=== PATIENT | female | born 1990 | race African-American/Black ===

== ENCOUNTER 2016-06-12 18:40 | Outpatient (CLI) | payer MEDICAID ==
[2016-06-12 19:34] LABS: APPEARANCE,URINE SLIGHTLY-CLOUDY; BILIRUBIN,URINE NEGATIVE (NEGATIVE); GLUCOSE, URINE NEGATIVE (NEGATIVE); KETONES,URINE NEGATIVE (NEGATIVE); LEUKOCYTE ESTERASE,URINE NEGATIVE (NEGATIVE); NITRITE,URINE NEGATIVE (NEGATIVE); PROTEIN,URINE >=500 mg/dL (NEGATIVE); URINE SPECIFIC GRAVITY 1.017; UROBILINOGEN,URINE NEGATIVE mg/dL (<2.0)
[2016-06-12 19:38] LABS: AMNISURE (ROM) NEGATIVE (NEGATIVE)
[2016-06-12] MEDS ORDERED: LABETALOL HCL 200 MG TABLET ONE (19:46)
[2016-06-12 19:47] LABS: URINE BARBITURATES SCREEN NEGATIVE; URINE METHADONE SCREEN NEGATIVE; URINE OPIATES LOW NEGATIVE; URINE PHENCYCLIDINE SCREEN NEGATIVE
--- NOTE | 2016-06-12 20:00 | L&D Flow Sheet ---
LD Flowsheet Datetime Report Generated by CPN: 06/12/2016 20:00 Datetime: 06/12/2016 19:58 Patient Care Comments: Wet prep collected (Mag Vitrano, RN) Datetime: 06/12/2016 19:52 Medications Medication Comments: Labetolol 200 mg PO (Mag Vitrano, RN) Datetime: 06/12/2016 19:50 Vital Signs NBP Sys/Negin/Mean (mmHg): 164 (QS system process) : 104 (QS system process) : 129 (QS system process) Pulse: 75 (QS system process) LaborFlag: Antepartum (QS system process) Datetime: 06/12/2016 19:48 Communication Communication Comments: Reviewed VS with Dr. Neilsen, new orders received for Labetolol 200 mg PO x1 now. (Mag Vitrano, RN) Datetime: 06/12/2016 19:44 Communication Communication Comments: Dr. Neilsen aware (Mag Vitrano, RN) Datetime: 06/12/2016 19:40 Communication Communication Comments: Dr. Nekatharineen notified of pt VS and pt due for evening dose of Labetolol, 50 mg PO. Orders to administer evening dose x1 now. (Mag Vitrano, RN) Datetime: 06/12/2016 19:37 Communication Communication Comments: Records requested from [facility] (Mag Vitrano, RN) Datetime: 06/12/2016 19:35 Vital Signs NBP Sys/Negin/Mean (mmHg): 180 (QS system process) : 116 (QS system process) : 142 (QS system process) Pulse: 81 (QS system process) LaborFlag: Antepartum (QS system process) Datetime: 06/12/2016 19:23 Vital Signs NBP Sys/Negin/Mean (mmHg): 161 (QS system process) : 97 (QS system process) : 122 (QS system process) Pulse: 81 (QS system process) LaborFlag: Antepartum (QS system process) Datetime: 06/12/2016 19:22 Patient Care Patient Position/Activity: Left Lateral (Mag Vitrano, RN) Patient Care Comments: Lights dimmed (Mag Vitrano, RN) Datetime: 06/12/2016 19:20 Vital Signs NBP Sys/Negin/Mean (mmHg): 180 (QS system process) : 119 (QS system process) : 142 (QS system process) Pulse: 82 (QS system process) LaborFlag: Antepartum (QS system process) Datetime: 06/12/2016 19:16 Vital Signs NBP Sys/Ngein/Mean (mmHg): 172 (QS system process) : 117 (QS system process) : 139 (QS system process) Pulse: 89 (QS system process) LaborFlag: Antepartum (QS system process)
[2016-06-12] MEDS ORDERED: LABETALOL HCL 200 MG TABLET PO ONE (20:13)
[2016-06-12] MEDS ORDERED: RINGERS SOLUTION,LACTATED 1,000 ML IV PRN (20:13)
[2016-06-12] MEDS ORDERED: LABETALOL HCL INJ 20 MG/4 ML DISP.SYRIN IV ONE ×2 (21:39→21:41)
--- NOTE | 2016-06-12 22:00 | L&D Flow Sheet ---
LD Flowsheet Datetime Report Generated by CPN: 06/12/2016 22:00 Datetime: 06/12/2016 21:50 NBP Sys/Negin/Mean (mmHg): 179 (QS system process) : 105 (QS system process) : 136 (QS system process) Pulse: 77 (QS system process) LaborFlag: Antepartum (QS system process) Datetime: 06/12/2016 21:48 Monitor Interventions for UA: [place] Adjusted (Mag Julienano, RN) Monitor Interventions for FHR: Ultrasound Adjusted (Mag Vitrano, RN) Patient Position/Activity: Right Tilt; Semi-Fowlers (Mag Vitrano, RN) Datetime: 06/12/2016 21:47 Medication Comments: Labetolol 20 mg IV x1 over 2 min (Mag Vitrano, RN) Datetime: 06/12/2016 21:43 Patient Care Comments: GC/Chlam collected (Mag Vitrano, RN) Datetime: 06/12/2016 21:41 I/O Interventions: Up to BR (Mag Vitrano, RN) Datetime: 06/12/2016 21:39 Communication Comments: Reviewed VS with Dr. Mensah. Orders for Labetolol 20 mg IV x1 now. (Mag Vitrano, RN) Datetime: 06/12/2016 21:36 NBP Sys/Negin/Mean (mmHg): 179 (QS system process) : 99 (QS system process) : 130 (QS system process) Pulse: 77 (QS system process) LaborFlag: Antepartum (QS system process) Datetime: 06/12/2016 21:20 NBP Sys/Negin/Mean (mmHg): 166 (QS system process) : 97 (QS system process) : 126 (QS system process) Pulse: 78 (QS system process) LaborFlag: Antepartum (QS system process) Datetime: 06/12/2016 21:06 NBP Sys/Negin/Mean (mmHg): 168 (QS system process) : 96 (QS system process) : 125 (QS system process) Pulse: 78 (QS system process) LaborFlag: Antepartum (QS system process) Datetime: 06/12/2016 20:50 NBP Sys/Negin/Mean (mmHg): 176 (QS system process) : 91 (QS system process) : 123 (QS system process) Pulse: 79 (QS system process) LaborFlag: Antepartum (QS system process) Datetime: 06/12/2016 20:46 Monitor Interventions for FHR: Ultrasound Adjusted (Mag Vitrano, RN) Datetime: 06/12/2016 20:45 I/O Interventions: Ice Chips Given (Mag Vitrano, RN) Datetime: 06/12/2016 20:43 Monitor Interventions for FHR: Ultrasound Adjusted (Mag Vitrano, RN) Datetime: 06/12/2016 20:42 Patient Position/Activity: Left Lateral; Low Fowlers (Mag Vitrano, RN) Datetime: 06/12/2016 20:39 I/O Interventions: Up to BR (Mag Vitrano, RN) Datetime: 06/12/2016 20:37 Patient Care Comments: Reviewed positive THC and positve cocaine results w/ pt; pt reports smoking marijuana but denies cocaine use. Reviewed cessation of illegal substances, pt verbalized understanding. (Mag Vitrano, RN) Datetime: 06/12/2016 20:35 NBP Sys/Negin/Mean (mmHg): 184 (QS system process) : 112 (QS system process) : 139 (QS system process) Pulse: 75 (QS system process) LaborFlag: Antepartum (QS system process) Datetime: 06/12/2016 20:30 Patient Care Comments: 18 G IV started L hand site WNL (Mag Vitrano, RN) Datetime: 06/12/2016 20:20 NBP Sys/Negin/Mean (mmHg): 193 (QS system process) : 115 (QS system process) : 148 (QS system process) Pulse: 75 (QS system process) LaborFlag: Antepartum (QS system process) Datetime: 06/12/2016 20:08 Communication Comments: Reviewed VS with Dr. Mensah. Reviewed positive THC and cocaine. Orders to continue monitoring pt; start IV LR at 125 mL/hour. (Mag Vitrano, RN) Datetime: 06/12/2016 20:05 NBP Sys/Negin/Mean (mmHg): 190 (QS system process) : 119 (QS system process) : 149 (QS system process) Pulse: 83 (QS system process) LaborFlag: Antepartum (QS system process)
[2016-06-12] MEDS ORDERED: FLUCONAZOLE 100 MG TABLET PO ONE (22:25)
[2016-06-12] MEDS ORDERED: CETIRIZINE 10 MG TABLET PO ONE (22:26)
[2016-06-12] MEDS ORDERED: RISPERIDONE 0.25 MG TABLET PO ONE (22:26)
[2016-06-12] MEDS ORDERED: FLUCONAZOLE 100 MG TABLET ONE (22:31)
[2016-06-12] MEDS ORDERED: DIPHENHYDRAMINE HCL 25 MG CAPSULE ONE (22:41)
[2016-06-12] MEDS ORDERED: HYDRALAZINE HCL INJ/PF 20 MG/1 ML SDV IV ONE (23:02)
[2016-06-12] MEDS ORDERED: HYDRALAZINE HCL INJ/PF 20 MG/1 ML SDV ONE (23:03)
[2016-06-12 23:22] LABS: ABSOLUTE EOSINOPHILS # (AUTO) 0.2 10^3/uL (0.0-0.6); ABSOLUTE LYMPHOCYTES (AUTO) 2.1 10^3/uL (0.5-4.7); ABSOLUTE MONOCYTES (AUTO) 0.6 10^3/uL (0.1-1.4); BASOPHILS % (AUTO) 0.3 % (0-2); EOSINOPHILS % (AUTO) 2.1 % (0-6); HEMATOCRIT 32.1 % (36.0-47.0); HEMOGLOBIN 10.6 g/dL (12.0-15.5); HGB HCT DIFFERENCE -0.3; LYMPHOCYTES % (AUTO) 19.4 % (13-45); MEAN CORPUSCULAR HEMOGLOBIN 28.8 pg (27.0-33.4); MEAN CORPUSCULAR HGB CONC 32.9 g/dL (32.0-36.0); MEAN CORPUSCULAR VOLUME 88 fl (80-97); MONOCYTES % (AUTO) 5.7 % (3-13); RED BLOOD COUNT 3.66 10^6/uL (3.72-5.28); RED CELL DISTRIBUTION WIDTH 14.6 % (11.5-14.0); SEGMENTED NEUTROPHILS % (AUTO) 72.5 % (42-78)
[2016-06-12 23:30] LABS: CHLAM PCR NOT DETECTED (NOT DETECT)
[2016-06-12] MEDS ORDERED: MAGNESIUM SULFATE 500 ML IV PRN (23:30)
[2016-06-12] MEDS ORDERED: MAGNESIUM SULFATE 4 GM/100 ML RTUPB IV ONE (23:30)
[2016-06-12] MEDS ORDERED: MAGNESIUM SULFATE 100 ML IV ONE (23:30)
[2016-06-12 23:45] LABS: ALANINE AMINOTRANSFERASE 18 U/L (9-52); ALBUMIN 2.5 g/dL (3.5-5.0); ALKALINE PHOSPHATASE 70 U/L (38-126); ANION GAP 8 (5-19); ASPARTATE AMINO TRANSFERASE 13 U/L (14-36); BILIRUBIN,TOTAL 0.3 mg/dL (0.2-1.3); BLOOD UREA NITROGEN 5 mg/dL (7-20); CALCIUM 8.5 mg/dL (8.4-10.2); CARBON DIOXIDE 20 mmol/L (22-30); CHLORIDE 106 mmol/L (98-107); CREATININE RESULT 0.55 mg/dL (0.52-1.25); GLUCOSE 73 mg/dL (75-110); LDH 461 U/L (313-618); POTASSIUM 3.7 mmol/L (3.6-5.0); SODIUM 134.3 mmol/L (137-145); TOTAL PROTEIN 5.2 g/dL (6.3-8.2); URIC ACID 4.8 mg/dL (2.5-6.2)
--- NOTE | 2016-06-13 00:21 | L&D Progress Notes ---
PROGRESS NOTES Datetime Report Generated by CPN: 06/13/2016 00:21 PROGRESS NOTE Impression: Gest. HTN/PreEclampsia/Eclampsia Plan: Transfer Informed Consent Obtained: Risks, Benefits and Alternatives Discussed Vital Signs : Reviewed Comment: Pt had epidsode of vertigo associated with neurologic irritabilty (jerking lue but no loss of consciousness). Had severe range bps at time of episode and magnesium started for seizure prophylaxis. Pt currently without neurologic irritabilty and mild range bps. Case d/w Dr Elroy Edmonds at [facility] where pt receives her OB care in high risk clinic. He agrees to accept pt in transfer. FETUS A FHR Category: Category I SIGNATURE SIGNATURE: [id number] Signature: with User ID: [email or web address]
[2016-06-13] MEDS ORDERED: RISPERIDONE 0.25 MG TABLET ONE (00:24)
--- NOTE | 2016-06-13 04:46 | L&D Current Admission ---
Current Admit Datetime Report Generated by CPN: 06/13/2016 04:45 ADMISSION INFORMATION Current Admit Date/Time: 06/12/2016 22:30 (06/12/2016 22:38:Mag Ro RN) Reason for Admission: Observation (06/12/2016 22:38:Mag Ro RN) Chief Complaint: Other (06/12/2016 22:38:Mag Ro RN) Chief Complaint: Suspected Rupture of Membranes (06/12/2016 19:15:Mag Ro RN) Medications During : Albuterol MDI; Labetolol; Vitamin; Acetaminophen (Tylenol); Sertraline (Zoloft) (06/12/2016 22:38:Mag Ro RN) Meds During -Oth: Risperidol, Metformin (06/12/2016 22:38:Mag Ro RN) EGA per Dates: 33.0 (06/12/2016 22:38:QS system process) Method of Arrival: Wheelchair (06/12/2016 22:38:Mag Ro RN) Admitted From: Home (06/12/2016 22:38:Mag Ro RN) Reason for Induction: Not Applicable (06/12/2016 22:38:Mag Ro RN) Records Available: Requested (06/12/2016 22:38:Mag Ro RN) General Admission Information: Reviewed; Confirmed (06/12/2016 22:38:Mag Ro RN) General Admission Reviewed By: Ruba Ro RN (06/12/2016 22:38:Mag Ro RN) BELONGINGS/ADVANCED DIRECTIVES Other Belongings: See belongings consent (06/12/2016 22:38:Mag Ro RN) Disposition of Belongings: Kept with Patient (06/12/2016 22:38:Mag Ro RN) Advance Direct for Healthcare: No, and Wants No Information (06/12/2016 22:38:Mag Ro RN) Durable Power of Vending Stand Supervisor: No (06/12/2016 22:38:Mag Ro RN) Living Will: No (06/12/2016 22:38:Mag Ro RN) Organ Donor: No (06/12/2016 22:38:Mag Ro RN) Pt Rights Information Given: Yes (06/12/2016 22:38:Mag Ro RN) Pt Understands Pt Rights: Yes (06/12/2016 22:38:Mag Ro RN) LEARNING ASSESSMENT Knowledge Level: Understands L_D Process; Understands Care Activities; Had Pre-Hospital Education; Understands Diagnosis (06/12/2016 22:38:Mag Ro RN) Barriers to Learning: None (06/12/2016 22:38:Mag Ro RN) Learning Readiness: Motivated (06/12/2016 22:38:Mag Ro RN) Learns Best By: 1 to 1 Instruction (06/12/2016 22:38:Mag Ro RN) Learning Needs: Labor and Delivery Process; Pain Management; Symptoms to Report; Treatment Plan; Medication; Diagnosis (06/12/2016 22:38:Mag Ro RN) DOMESTIC VIOLANCE SCREENING Dom Viol Threatened/Hurt: No (06/12/2016 22:38:Mag Ro RN) Hx of Abuse/Neglect past 2yrs: No (06/12/2016 22:38:Mag Ro RN) Feel Unsafe Going Home: No (06/12/2016 22:38:Mag Ro RN) Addt'l Observ Indicating Abuse: No (06/12/2016 22:38:Mag Ro RN) Reason Unable to Complete Screen: N/A, Screen Completed (06/12/2016 22:38:Mag Ro RN) Considered Personal Harm/Suicide: No (06/12/2016 22:38:Mag Ro RN) NUTRITIONAL/FUNCTIONAL SCREENING Problem with Appetite >5 Days: No (06/12/2016 22:38:Mag Ro RN) Chew/Swallow Difficulties: No (06/12/2016 22:38:Mag Ro RN) Inappropriate Wt Gain/Loss: No (06/12/2016 22:38:Mag Ro RN) Presence Skin Breakdown/Ulcer: No (06/12/2016 22:38:Mag Ro RN) Special Diet: No (06/12/2016 22:38:Mag Ro RN) Pt Requests Tool And Die Maker/Designer Visit: No (06/12/2016 22:38:Mag Ro RN) Hx of Any of the Following?: N/A (06/12/2016 22:38:Mag Ro RN) New Diagnosis of: N/A (06/12/2016 22:38:Mag Ro RN) Requires Assist w/Ambulation: No (06/12/2016 22:38:Mag Ro RN) Uses Assist Device to Ambulate: No (06/12/2016 22:38:Mag Ro RN) Pt Requires Help w/ADL's: No (06/12/2016 22:38:Mag Ro RN)
--- NOTE | 2016-06-13 04:46 | L&D Admission Assessment ---
LD ADM ASMT Datetime Report Generated by CPN: 06/13/2016 04:45 PATIENT ASSESSMENT Assessment Type: Ongoing Assessment (06/12/2016 23:15:Dianna Suleiman, RN) Assessment Type: Admission Assessment (06/12/2016 19:15:Mag Vitrano, RN) WEIGHT Weight (lb): 209 (06/12/2016 22:33:QS system process) Weight (lb): 209 (06/12/2016 20:53:QS system process) Weight (kg): 95.0 (06/12/2016 22:33:QS system process) Weight (kg): 95.0 (06/12/2016 20:53:QS system process) BMI: 38.2 (06/12/2016 22:33:QS system process) BMI: 38.2 (06/12/2016 20:53:QS system process) PAIN Pain Scale: 0 (06/12/2016 23:17:Dianna Bearden RN) Pain Scale: 0 (06/12/2016 19:15:Mag Ro RN) Pain Presence: None/Denies (06/12/2016 19:15:Mag Ro RN) Pain Type: N/A (06/12/2016 19:15:Mag Ro RN) CONTRACTIONS Frequency (min): none (06/13/2016 00:51:Dianna Bearden RN) Frequency (min): none noted (06/13/2016 00:30:Dianna Bearden RN) Frequency (min): none noted (06/13/2016 00:00:Dianna Suleiman, RN) Frequency (min): none noted (06/12/2016 23:30:Dianna Suleiman, RN) Frequency (min): None (06/12/2016 23:00:Mag Vitrano, RN) Frequency (min): None (06/12/2016 22:30:Mag Vitrano, RN) Frequency (min): None (06/12/2016 22:00:Mag Vitrano, RN) Frequency (min): None (06/12/2016 21:30:Mag Vitrano, RN) Frequency (min): None (06/12/2016 21:00:Mag Vitrano, RN) Frequency (min): None (06/12/2016 20:30:Mag Vitrano, RN) Frequency (min): None (06/12/2016 20:00:Mag Vitrano, RN) Frequency (min): None (06/12/2016 19:30:Mag Vitrano, RN) Resting Tone [place]: Relaxed (06/13/2016 00:51:Dianna Suleiman, RN) Resting Tone [place]: Relaxed (06/13/2016 00:30:Dianna Suleiman, RN) Resting Tone [place]: Relaxed (06/13/2016 00:00:Dianna Suleiman, RN) Resting Tone [place]: Relaxed (06/12/2016 23:30:Dianna Suleiman, RN) Resting Tone [place]: Relaxed (06/12/2016 23:00:Mag Vitrano, RN) Resting Tone [place]: Relaxed (06/12/2016 22:30:Mag Vitrano, RN) Resting Tone [place]: Relaxed (06/12/2016 22:00:Mag Vitrano, RN) Resting Tone [place]: Relaxed (06/12/2016 21:30:Mag Vitrano, RN) Resting Tone [place]: Relaxed (06/12/2016 21:00:Mag Vitrano, RN) Resting Tone [place]: Relaxed (06/12/2016 20:30:Mag Vitrano, RN) Resting Tone [place]: Relaxed (06/12/2016 20:00:Mag Vitrano, RN) Resting Tone [place]: Relaxed (06/12/2016 19:30:Mag Ro RN) Contraction Comments: pt. denies feeling ctn's (06/12/2016 23:30:Dianna Bearden RN) Contraction Comments: Pt denies (06/12/2016 22:30:Mag Ro RN) Contraction Comments: Pt denies (06/12/2016 22:00:Mag Ro RN) Contraction Comments: Pt denies (06/12/2016 21:30:Mag Ro RN) Contraction Comments: Pt denies (06/12/2016 21:00:Mag Ro RN) Contraction Comments: Pt denies (06/12/2016 20:30:Mag Ro RN) Contraction Comments: Pt denies (06/12/2016 20:00:Mag Ro RN) Contraction Comments: Pt denies (06/12/2016 19:30:Mag Ro RN) NEURO Level of Consciousness: Fully Conscious (06/12/2016 23:45:Dianna Bearden RN) Level of Consciousness: Fully Conscious (06/12/2016 23:30:Dianna Bearden RN) Level of Consciousness: Fully Conscious (06/12/2016 23:15:Dianna Bearden RN) Level of Consciousness: Fully Conscious (06/12/2016 19:15:Mag Ro RN) Level of Consciousness: Fully Conscious (06/12/2016 01:00:Dianna Bearden RN) Level of Consciousness: Fully Conscious (06/12/2016 00:00:Dianna Bearden RN) DTR's/Clonus: DTRs 1+; No Clonus (06/12/2016 23:45:Dianna Suleiman, RN) DTR's/Clonus: DTRs 1+; No Clonus (06/12/2016 23:30:Dianna Suleiman, RN) DTR's/Clonus: DTRs 1+; No Clonus (06/12/2016 23:15:Dianna Suleiman, RN) DTR's/Clonus: DTRs 2+; No Clonus (06/12/2016 19:15:Magjuan Ro, RN) DTR's/Clonus: DTRs 1+; No Clonus (06/12/2016 01:00:Dianna Suleiman, RN) DTR's/Clonus: DTRs 1+; No Clonus (06/12/2016 00:00:Dianna Suleiman, RN) Headache: Denies (06/12/2016 23:45:Dianna Suleiman, RN) Headache: Denies (06/12/2016 23:30:Dianna Suleiman, RN) Headache: Denies (06/12/2016 23:15:Dianna Suleiman, RN) Headache: Denies (06/12/2016 19:15:Mag Julienano, RN) Headache: Denies (06/12/2016 01:00:Dianna Suleiman, RN) Headache: Denies (06/12/2016 00:00:Dianna Suleiman, RN) Dizziness: No (06/12/2016 23:45:Dianna Suleiman, RN) Dizziness: No (06/12/2016 23:30:Dianna Suleiman, RN) Dizziness: No (06/12/2016 23:15:Dianna Suleiman, RN) Dizziness: No (06/12/2016 19:15:Mag Julienano, RN) Dizziness: No (06/12/2016 01:00:Dianna Suleiman, RN) Dizziness: No (06/12/2016 00:00:Dianna Suleiman, RN) Blurred Vision: No (06/12/2016 23:45:Dianna Suleiman, RN) Blurred Vision: No (06/12/2016 23:30:Dianna Suleiman, RN) Blurred Vision: No (06/12/2016 23:15:Dianna Bearedn RN) Blurred Vision: No (06/12/2016 19:15:Mag Ro RN) Blurred Vision: No (06/12/2016 01:00:Dianna Bearden RN) Blurred Vision: No (06/12/2016 00:00:Dianna Bearden RN) Extremity Numbness/Tingling : None (06/12/2016 23:15:Dianna Bearden RN) Extremity Numbness/Tingling : None (06/12/2016 19:15:Mag Ro RN) Extremity Movement: Full Range of Motion (06/12/2016 23:15:Dianna Bearden RN) Extremity Movement: Full Range of Motion (06/12/2016 19:15:Mag oR RN) CARDIOVASCULAR Heart Rhythm: Regular (06/12/2016 23:15:Dianna Bearden RN) Heart Rhythm: Regular (06/12/2016 19:15:Mag Ro RN) Nailbeds: Gann (06/12/2016 23:15:Dianna Bearden RN) Nailbeds: Gann (06/12/2016 19:15:Mag Ro RN) Capillary Refill: Less than 3 Seconds (06/12/2016 23:15:Dianna Bearden RN) Capillary Refill: Less than 3 Seconds (06/12/2016 19:15:Mag Ro RN) Lower Extremities Edema: Bilateral Lower Extremities (06/12/2016 23:45:Dianna Bearden RN) Lower Extremities Edema: Bilateral Lower Extremities (06/12/2016 23:30:Dianna Bearden RN) Lower Extremities Edema: Bilateral Lower Extremities (06/12/2016 23:15:Dianna Bearden RN) Lower Extremities Edema: Bilateral Lower Extremities (06/12/2016 19:15:Mag oR RN) Lower Extremities Edema: Bilateral Lower Extremities (06/12/2016 01:00:Dianna Bearden RN) Lower Extremities Edema: Bilateral Lower Extremities (06/12/2016 00:00:Dianna Bearden RN) Lower Extremities Edema Degree: 1+ (06/12/2016 23:45:Dianna Bearden RN) Lower Extremities Edema Degree: 1+ (06/12/2016 23:30:Dianna Bearden RN) Lower Extremities Edema Degree: 1+ (Annotations: nonpitting) (06/12/2016 23:15:Dianna Bearden RN) Lower Extremities Edema Degree: 1+ (06/12/2016 19:15:Mag Ro RN) Lower Extremities Edema Degree: 1+ (06/12/2016 01:00:Dianna Bearden RN) Lower Extremities Edema Degree: 1+ (06/12/2016 00:00:Dianna Bearden RN) Upper Extremities Edema: None (06/12/2016 23:45:Dianna Bearden RN) Upper Extremities Edema: None (06/12/2016 23:30:Dianna Bearden RN) Upper Extremities Edema: None (06/12/2016 23:15:Dianna Bearden RN) Upper Extremities Edema: None (06/12/2016 19:15:Mag Ro RN) Upper Extremities Edema: None (06/12/2016 01:00:Dianna Bearden RN) Upper Extremities Edema: None (06/12/2016 00:00:Dianna Bearden RN) Upper Extremities Edema Degree: None (06/12/2016 23:45:Dianna Bearden RN) Upper Extremities Edema Degree: None (06/12/2016 23:30:Dianna Bearden RN) Upper Extremities Edema Degree: None (06/12/2016 23:15:Dianna Bearden RN) Upper Extremities Edema Degree: None (06/12/2016 19:15:Mag Ro RN) Upper Extremities Edema Degree: None (06/12/2016 01:00:Dianna Bearden RN) Upper Extremities Edema Degree: None (06/12/2016 00:00:Dianna Bearden RN) Facial Edema: None (06/12/2016 23:45:Dianna Bearden RN) Facial Edema: None (06/12/2016 23:30:Dianna Bearden RN) Facial Edema: None (06/12/2016 23:15:Dianna Bearden RN) Facial Edema: None (06/12/2016 19:15:Mag Ro RN) Facial Edema: None (06/12/2016 01:00:Dianna Bearden RN) Facial Edema: None (06/12/2016 00:00:Dianna Bearden RN) Dale's Sign Left Leg: Negative (06/12/2016 23:15:Dianna Bearden RN) Dale's Sign Left Leg: Negative (06/12/2016 19:15:Mag Ro RN) Dale's Sign Right Leg: Negative (06/12/2016 23:15:Dianna Bearden RN) Dale's Sign Right Leg: Negative (06/12/2016 19:15:Mag Ro RN) DVT RISK ASSESSMENT DVT Risk Age: Age less than 41 years (06/12/2016 19:15:Mag Ro RN) DVT Risk BMI: BMI 41 to 50 (06/12/2016 19:15:Mag Ro RN) DVT Risk Surgery: History of Prior Major Surgery (06/12/2016 19:15:Mag Ro RN) DVT Risk Other: Women Only- or (<1 month) (06/12/2016 19:15:Mag Ro RN) DVT Risk Total: 4 (06/12/2016 19:15:QS system process) DVT Risk Text: High Risk (20-40%)- Consider stockings, compresssion device, pharmacological therapy per hospital policy (06/12/2016 19:15:QS system process) RESPIRATORY Respiratory Effort: Unlabored; Regular Rhythm (06/12/2016 23:15:Dianna Bearden RN) Respiratory Effort: Unlabored; Regular Rhythm; Equal Expansion (06/12/2016 19:15:Mag Ro RN) Breath Sounds, Left: Clear and Equal (06/12/2016 23:45:Dianna Bearden RN) Breath Sounds, Left: Clear and Equal (06/12/2016 23:30:Dianna Bearden RN) Breath Sounds, Left: Clear and Equal (06/12/2016 23:15:Dianna Bearden RN) Breath Sounds, Left: Clear and Equal (06/12/2016 19:15:Mag Ro RN) Breath Sounds, Left: Clear and Equal (06/12/2016 01:00:Dianna Bearden RN) Breath Sounds, Left: Clear and Equal (06/12/2016 00:00:Dianna Bearden RN) Breath Sounds, Right: Clear and Equal (06/12/2016 23:45:Dianna Bearden RN) Breath Sounds, Right: Clear and Equal (06/12/2016 23:30:Dianna Bearden RN) Breath Sounds, Right: Clear and Equal (06/12/2016 23:15:Dianna Bearden RN) Breath Sounds, Right: Clear and Equal (06/12/2016 19:15:Mag Ro RN) Breath Sounds, Right: Clear and Equal (06/12/2016 01:00:Dianna Bearden, RN) Breath Sounds, Right: Clear and Equal (06/12/2016 00:00:Dianna Bearden RN) Cough Productivity: None (06/12/2016 23:15:Dianna Bearden RN) Cough Productivity: None (06/12/2016 19:15:Mag Ro RN) GASTROINTESTINAL Nausea/Vomiting: Denies (06/12/2016 23:45:Dianna Bearden RN) Nausea/Vomiting: Denies (06/12/2016 23:30:Dianna Bearden RN) Nausea/Vomiting: Denies (06/12/2016 23:15:Dianna Bearden RN) Nausea/Vomiting: Denies (06/12/2016 19:15:Mag Ro RN) Nausea/Vomiting: Denies (06/12/2016 01:00:Dianna Bearden RN) Nausea/Vomiting: Denies (06/12/2016 00:00:Dianna Bearden RN) Bowel Sounds: Normoactive (06/12/2016 23:15:Dianna Bearden RN) Bowel Sounds: Normoactive (06/12/2016 19:15:Mag Ro RN) RUQ Epigastric Pain: Denies (06/12/2016 23:45:Dianna Bearden RN) RUQ Epigastric Pain: Denies (06/12/2016 23:30:Dianna Bearden RN) RUQ Epigastric Pain: Denies (06/12/2016 23:15:Dianna Bearden RN) RUQ Epigastric Pain: Denies (06/12/2016 19:15:Mag Ro RN) RUQ Epigastric Pain: Denies (06/12/2016 01:00:Dianna Bearden RN) RUQ Epigastric Pain: Denies (06/12/2016 00:00:Dianna Bearden RN) Bowel Patterns: Soft, Formed Stool (06/12/2016 19:15:Mag Ro RN) Hemorrhoids: Present (06/12/2016 19:15:Mag Ro RN) Diet Type: Regular diet (06/12/2016 19:15:Mag Ro RN) Last Meal: 06/12/2016 16:30 (06/12/2016 19:15:Mag Ro RN) GENITOURINARY Bladder: Nondistended (06/12/2016 23:15:Dianna Bearden RN) Bladder: Nondistended (06/12/2016 19:15:Mag Ro RN) Frequency of Urination: No (06/12/2016 23:15:Dianna Bearden RN) Frequency of Urination: No (06/12/2016 19:15:Mag Ro RN) Urination Burning: No (06/12/2016 23:15:Dianna Bearden RN) Urination Burning: No (06/12/2016 19:15:Mag Ro RN) CVA Tenderness: No (06/12/2016 23:15:Dianna Bearden RN) CVA Tenderness: No (06/12/2016 19:15:Mag Ro RN) Vaginal Bleeding: None (06/12/2016 19:15:Mag Ro RN) Vaginal Discharge Amount: Small (06/12/2016 23:15:Dianna Bearden RN) Vaginal Discharge Amount: None (06/12/2016 19:15:Mag Ro RN) Vaginal Discharge Color: moderate swelling to perineal area (06/12/2016 23:15:Dianna Bearden RN) Vaginal Discharge Odor: Non-Odorous (06/12/2016 23:15:Dianna Bearden RN) Vaginal Discharge Character: None (06/12/2016 19:15:Mag Ro RN) INTEGUMENTARY Skin Color: Normal for Race (06/12/2016 23:15:Dianna Bearden RN) Skin Color: Normal for Race (06/12/2016 19:15:Mag Ro RN) Skin Temperature: Warm (06/12/2016 23:15:Dianna Bearden RN) Skin Temperature: Warm (06/12/2016 19:15:Mag Ro RN) Skin Moisture: Dry (06/12/2016 23:15:Dianna Bearden RN) Skin Moisture: Dry (06/12/2016 19:15:Mag Ro RN) Surgical Scars: See history (06/12/2016 19:15:Mag Ro RN) Body Piercings/Tattoos: Ear piercings, tattoos x2 (06/12/2016 19:15:Mag Ro RN) ONUR SKIN ASSESSMENT Onur Scale Sensory Perception: No Impairment- Responds to verbal commands. Has no sensory deficit which would limit ability to feel or voice pain or discomfort (06/12/2016 23:15:Dianna Bearden RN) Onur Scale Sensory Perception: No Impairment- Responds to verbal commands. Has no sensory deficit which would limit ability to feel or voice pain or discomfort (06/12/2016 19:15:Mag Ro RN) Onur Scale Moisture: Rarely Moist- Skin is usually dry. Linen only requires changing at routine intervals (06/12/2016 23:15:Dianna Bearden RN) Onur Scale Moisture: Rarely Moist- Skin is usually dry. Linen only requires changing at routine intervals (06/12/2016 19:15:Mag Ro RN) Onur Scale Activity: Walks Frequently- Walks outside the room at least twice a day and inside room at least every 2 hours during the day. (06/12/2016 23:15:Dianna Bearden RN) Onur Scale Activity: Walks Frequently- Walks outside the room at least twice a day and inside room at least every 2 hours during the day. (06/12/2016 19:15:Mag Ro RN) Onur Scale Mobility: No Limitations- Makes major and frequent changes in position without assistance (06/12/2016 23:15:Dianna Bearden RN) Onur Scale Mobility: No Limitations- Makes major and frequent changes in position without assistance (06/12/2016 19:15:Mag Ro RN) Onur Scale Nutrition: Excellent- Eats most of every meal. Never refuses a meal. Usually eats a total of 4 or more servings of meat and dairy products. Occasionally eats between meals. Does not require supplementation (06/12/2016 23:15:Dianna Bearden RN) Onur Scale Nutrition: Excellent- Eats most of every meal. Never refuses a meal. Usually eats a total of 4 or more servings of meat and dairy products. Occasionally eats between meals. Does not require supplementation (06/12/2016 19:15:Mag Ro RN) Onur Scale Friction and Shear: No Apparent Problem- Moves in bed and in chair independently and has sufficient muscle strength to lift up completely during move. Maintains good position in bed or chair at all times (06/12/2016 23:15:Dianna Bearden RN) Onur Scale Friction and Shear: No Apparent Problem- Moves in bed and in chair independently and has sufficient muscle strength to lift up completely during move. Maintains good position in bed or chair at all times (06/12/2016 19:15:Mag Ro RN) Onur Scale Total: 23 (06/12/2016 23:15:QS system process) Onur Scale Total: 23 (06/12/2016 19:15:QS system process) Onur Scale Risk: No Risk of Pressure Ulcer Noted at this Time (06/12/2016 23:15:QS system process) Onur Scale Risk: No Risk of Pressure Ulcer Noted at this Time (06/12/2016 19:15:QS system process) SUPPORT Family Support: Family supportive (06/12/2016 19:15:Mag Ro RN) Emotional State: Calm/Relaxed (06/12/2016 19:15:Mag Ro RN) SAFETY Call Bal Within Reach: Yes (06/12/2016 19:15:Mag Ro RN) Side Rails Up: Yes (06/12/2016 19:15:Mag Ro RN) Bed Wheels Locked: Yes (06/12/2016 19:15:Mag Ro RN) Arm Bands Present: Yes (06/12/2016 19:15:Mag Ro RN) Isolation: [place] (06/12/2016 19:15:Mag Ro RN) FALL SCREEN Fall Risk History of Falling: (0) No (06/12/2016 19:15:Mag Ro RN) Fall Risk Secondary Diagnosis: (0) No (06/12/2016 19:15:Mag Ro RN) Fall Risk Ambulatory Aid: (0) None/Bedrest/Wheelchair/Nurse Assist (06/12/2016 19:15:Mag Ro RN) Fall Risk IV Therapy: (0) No (06/12/2016 19:15:Mag Ro RN) Fall Risk Gait: (0) Normal/Bedrest/Immobile (06/12/2016 19:15:Mag Ro RN) Fall Risk Mental Status: (0) Oriented to Own Ability (06/12/2016 19:15:Mag Ro RN) Fall Risk Score: 0 (06/12/2016 19:15:QS system process) Fall Risk Score Definition: No Risk: No action required (06/12/2016 19:15:QS system process) RECENT TRAVEL/INFECTIOUS DISEASE Recent Exp Communicable Disease: No (06/12/2016 19:15:Mag Ro RN) Cough or Fever: No (06/12/2016 19:15:Mag Ro RN) Foreign Travel Past 10 Days: No (06/12/2016 19:15:Mag Ro RN) Open Wounds or Sores: No (06/12/2016 19:15:Mag Ro RN) Prior Antibiotic Resistance Tx: No (06/12/2016 19:15:Mag Ro RN) Cultures Obtained: Not Applicable (06/12/2016 19:15:Mag Ro RN) Isolation Initiated: No (06/12/2016 19:15:Mag Ro RN) Pt/Family Education: Not Applicable (06/12/2016 19:15:Mag Ro RN) BABY A FHR Baseline Rate (bpm) Baby A: 145 (06/13/2016 00:51:Dianna Bearden RN) FHR Baseline Rate (bpm) Baby A: 145 (06/13/2016 00:30:Dianna Bearden RN) FHR Baseline Rate (bpm) Baby A: 140 (06/13/2016 00:00:Dianna Bearden RN) FHR Baseline Rate (bpm) Baby A: 135 (06/12/2016 23:30:Dianna Bearden RN) FHR Baseline Rate (bpm) Baby A: 140 (06/12/2016 23:00:Mag Ro RN) FHR Baseline Rate (bpm) Baby A: 150 (06/12/2016 22:30:Mag Ro RN) FHR Baseline Rate (bpm) Baby A: 150 (06/12/2016 22:00:Mag Ro RN) FHR Baseline Rate (bpm) Baby A: 150 (06/12/2016 21:30:Mag Ro RN) FHR Baseline Rate (bpm) Baby A: 145 (06/12/2016 21:00:Mag Ro RN) FHR Baseline Rate (bpm) Baby A: 150 (06/12/2016 20:30:Mag Ro RN) FHR Baseline Rate (bpm) Baby A: 145 (06/12/2016 20:00:Mag Ro RN) FHR Baseline Rate (bpm) Baby A: 150 (06/12/2016 19:30:Mag Ro RN) Variability Baby A: Moderate 6-25 bpm (06/13/2016 00:51:Dianna Bearden RN) Variability Baby A: Moderate 6-25 bpm (06/13/2016 00:00:Dianna Bearden RN) Variability Baby A: Moderate 6-25 bpm (06/12/2016 23:30:Dianna Bearden RN) Variability Baby A: Moderate 6-25 bpm (06/12/2016 23:00:Magmichelle Ro, RN) Variability Baby A: Moderate 6-25 bpm (06/12/2016 22:30:Mag Jayjay, RN) Variability Baby A: Moderate 6-25 bpm (06/12/2016 22:00:Mag Jayjay, RN) Variability Baby A: Moderate 6-25 bpm (06/12/2016 21:30:Mag Jayjay, RN) Variability Baby A: Moderate 6-25 bpm (06/12/2016 21:00:Mag Julienano, RN) Variability Baby A: Moderate 6-25 bpm (06/12/2016 20:30:Mag Jayjay, RN) Variability Baby A: Moderate 6-25 bpm (06/12/2016 20:00:Mag Jayjay, RN) Variability Baby A: Moderate 6-25 bpm (06/12/2016 19:30:Mag Jayjay, RN) Accelerations Baby A: None (06/13/2016 00:51:Dianna Bearden RN) Accelerations Baby A: 10X10 (06/13/2016 00:30:Dianna Bearden RN) Accelerations Baby A: 15X15 (06/13/2016 00:00:Dianna Bearden RN) Accelerations Baby A: 15X15 (06/12/2016 23:30:Dianna Bearden RN) Accelerations Baby A: 15X15 (06/12/2016 23:00:Mag Ro RN) Accelerations Baby A: None (06/12/2016 22:30:Mga Ro RN) Accelerations Baby A: None (06/12/2016 22:00:Mag Ro RN) Accelerations Baby A: 15X15 (06/12/2016 21:30:Mag Ro RN) Accelerations Baby A: 15X15 (06/12/2016 21:00:Mag Ro RN) Accelerations Baby A: 15X15 (06/12/2016 20:30:Mag Ro RN) Accelerations Baby A: 15X15 (06/12/2016 20:00:Mag Ro RN) Accelerations Baby A: 15X15 (06/12/2016 19:30:Magmichelle Ro RN) Decelerations Baby A: None (06/13/2016 00:51:Dianna Bearden RN) Decelerations Baby A: Variable (06/13/2016 00:30:Dianna Bearden RN) Decelerations Baby A: None (06/13/2016 00:00:Dianna Bearden RN) Decelerations Baby A: None (06/12/2016 23:30:Dianna Bearden RN) Decelerations Baby A: None (06/12/2016 23:00:Magmichelle Ro RN) Decelerations Baby A: None (06/12/2016 22:30:Magmichelle Ro RN) Decelerations Baby A: None (06/12/2016 22:00:Magmichelle Ro RN) Decelerations Baby A: None (06/12/2016 21:30:Magmichelle Ro RN) Decelerations Baby A: None (06/12/2016 21:00:Magjuan Ro RN) Decelerations Baby A: None (06/12/2016 20:30:Magmichelle Ro RN) Decelerations Baby A: None (06/12/2016 20:00:Magmichelle Ro RN) Decelerations Baby A: None (06/12/2016 19:30:Mag Jayjay RN) ADDITIONAL COMMENTS Assessment Flag: Admission Assessment (06/12/2016 19:15:QS system process)
--- NOTE | 2016-06-13 04:46 | L&D Flow Sheet ---
LD Flowsheet Datetime Report Generated by CPN: 06/13/2016 04:45 Datetime: 06/13/2016 01:12 Communication Communication Comments: Pt. off of unit via stretcher at this time with EMS at side. Care relinquished (Dianna Suleiman, RN) Datetime: 06/13/2016 00:51 Uterine Activity Monitor Mode: External (Dianna Suleiman, RN) Frequency (min): none (Dianna Suleiman, RN) Resting Tone (Palpate): Relaxed (Dianna Suleiman, RN) Assessment A Monitor Mode: External US (Dianna Suleiman, RN) FHR Baseline Rate : 145 (Dianna Suleiman, RN) Variability: Moderate 6-25 bpm (Dianna Suleiman, RN) Accelerations: None (Dianna Suleiman, RN) Decelerations: None (Dianna Suleiman, RN) Communication Communication Comments: monitors d/c'd for transfer (Dianna Suleiman, RN) Datetime: 06/13/2016 00:49 NBP Sys/Negin/Mean (mmHg): 153 (QS system process) : 82 (QS system process) : 111 (QS system process) Pulse: 91 (QS system process) Respirations: 14 (Dianna Suleiman, RN) Temperature (F): 98.2 (Dianna Suleiman, RN) Temperature (C): 36.8 (QS system process) Temperature Route: Oral (Dianna Suleiman, RN) LaborFlag: Antepartum (QS system process) Datetime: 06/13/2016 00:47 Patient Care Comments: 700 ml urine output (Dianna Suleiman, RN) Datetime: 06/13/2016 00:44 NBP Sys/Negin/Mean (mmHg): 160 (QS system process) : 94 (QS system process) : 117 (QS system process) Pulse: 96 (QS system process) LaborFlag: Antepartum (QS system process) Datetime: 06/13/2016 00:40 Communication Communication Comments: transport arrived, report passed (Dianna Suleiman, RN) Datetime: 06/13/2016 00:39 NBP Sys/Negin/Mean (mmHg): 156 (QS system process) : 89 (QS system process) : 117 (QS system process) Pulse: 87 (QS system process) LaborFlag: Antepartum (QS system process) Datetime: 06/13/2016 00:35 Communication Communication Comments: Report called to Ludin Siddiqui RN at [facility] (Dianna Bearden, RN) Datetime: 06/13/2016 00:34 NBP Sys/Negin/Mean (mmHg): 154 (QS system process) : 84 (QS system process) : 113 (QS system process) Pulse: 88 (QS system process) LaborFlag: Antepartum (QS system process) Datetime: 06/13/2016 00:31 Communication Communication Comments: Orders recieved from Dr. soto to d/c 24 hr urine at this time (Dianna Coxco, RN) Datetime: 06/13/2016 00:30 Uterine Activity Monitor Mode: External (Dianna Suleiman, RN) Frequency (min): none noted (Dianna Suleiman, RN) Resting Tone (Palpate): Relaxed (Dianna Suleiman, RN) Assessment A Monitor Mode: External US (Dianna Suleiman, RN) FHR Baseline Rate : 145 (Dianna Suleiman, RN) Accelerations: 10X10 (Dianna Suleiman, RN) Decelerations: Variable (Dianna Suleiman, RN) Datetime: 06/13/2016 00:29 NBP Sys/Negin/Mean (mmHg): 153 (QS system process) : 83 (QS system process) : 112 (QS system process) Pulse: 90 (QS system process) Medication Comments: Risperidone 0.25 mg PO x1 dose administered (Dianna Suleiman, RN) LaborFlag: Antepartum (QS system process) Datetime: 06/13/2016 00:24 NBP Sys/Negin/Mean (mmHg): 155 (QS system process) : 90 (QS system process) : 117 (QS system process) Pulse: 87 (QS system process) LaborFlag: Antepartum (QS system process) Datetime: 06/13/2016 00:19 NBP Sys/Negin/Mean (mmHg): 153 (QS system process) : 85 (QS system process) : 113 (QS system process) Pulse: 87 (QS system process) Temperature (F): 98.2 (Dianna Suleiman, RN) Temperature (C): 36.8 (QS system process) Temperature Route: Oral (Dianna Suleiman, RN) LaborFlag: Antepartum (QS system process) Datetime: 06/13/2016 00:14 NBP Sys/Negin/Mean (mmHg): 148 (QS system process) : 82 (QS system process) : 109 (QS system process) Pulse: 87 (QS system process) LaborFlag: Antepartum (QS system process) Datetime: 06/13/2016 00:09 NBP Sys/Negin/Mean (mmHg): 151 (QS system process) : 84 (QS system process) : 110 (QS system process) Pulse: 86 (QS system process) LaborFlag: Antepartum (QS system process) Datetime: 06/13/2016 00:04 NBP Sys/Negin/Mean (mmHg): 152 (QS system process) : 81 (QS system process) : 111 (QS system process) Pulse: 92 (QS system process) Respirations: 12 (Dianna Suleiman, RN) LaborFlag: Antepartum (QS system process) Datetime: 06/13/2016 00:00 Uterine Activity Monitor Mode: External (Dianna Suleiman, RN) Frequency (min): none noted (Dianna Suleiman, RN) Resting Tone (Palpate): Relaxed (Dianna Suleiman, RN) Assessment A Monitor Mode: External US (Dianna Suleiman, RN) FHR Baseline Rate : 140 (Dianna Suleiman, RN) Variability: Moderate 6-25 bpm (Dianna Suleiman, RN) Accelerations: 15X15 (Dianna Suleiman, RN) Decelerations: None (Dianna Suleiman, RN) Datetime: 06/12/2016 23:59 NBP Sys/Negin/Mean (mmHg): 151 (QS system process) : 87 (QS system process) : 112 (QS system process) Pulse: 96 (QS system process) Bedside Blood Glucose: 131 H (QS system process) LaborFlag: Antepartum (QS system process) Datetime: 06/12/2016 23:55 Communication Communication Comments: Dr. neilsen states to prepare pt. to transfer to [facility] (Dianna Suleiman, RN) Datetime: 06/12/2016 23:54 NBP Sys/Negin/Mean (mmHg): 153 (QS system process) : 82 (QS system process) : 110 (QS system process) Pulse: 88 (QS system process) Medications Magnesium/Antihypertensives: Magnesium Sulfate IV (Gm/hr) @ 2 (Dianna Suleiman, RN) LaborFlag: Antepartum (QS system process) Datetime: 06/12/2016 23:49 NBP Sys/Negin/Mean (mmHg): 150 (QS system process) : 85 (QS system process) : 111 (QS system process) Pulse: 88 (QS system process) LaborFlag: Antepartum (QS system process) Datetime: 06/12/2016 23:45 Maternal Assessment Level of Consciousness: Fully Conscious (Dianna Suleiman, RN) DTR's/Clonus: DTRs 1+; No Clonus (Dianna Suleiman, RN) Headache: Denies (Dianna Suleiman, RN) Breath Sounds, Left: Clear and Equal (Dianna Suleiman, RN) Breath Sounds, Right: Clear and Equal (Dianna Suleiman, RN) Nausea/Vomiting: Denies (Dianna Suleiman, RN) RUQ Epigastric Pain: Denies (Dianna Suleiman, RN) Datetime: 06/12/2016 23:44 NBP Sys/Negin/Mean (mmHg): 142 (QS system process) : 95 (QS system process) : 111 (QS system process) Pulse: 94 (QS system process) I/O Interventions: Simms Cath Inserted (Dianna Suleiman, RN) LaborFlag: Antepartum (QS system process) Datetime: 06/12/2016 23:42 Pulse: 90 (QS system process) SpO2 (%): 99 (QS system process) LaborFlag: Antepartum (QS system process) Datetime: 06/12/2016 23:39 NBP Sys/Negin/Mean (mmHg): 166 (QS system process) : 92 (QS system process) : 122 (QS system process) Pulse: 94 (QS system process) Patient Care Comments: reflexus +[address] Soto (Dianna Bearden, DEANDRE) LaborFlag: Antepartum (QS system process) Datetime: 06/12/2016 23:37 Pulse: 90 (QS system process) SpO2 (%): 99 (QS system process) LaborFlag: Antepartum (QS system process) Datetime: 06/12/2016 23:36 Patient Care Comments: pt vomitting (Dianna Suleiman, RN) Datetime: 06/12/2016 23:35 Medications Magnesium/Antihypertensives: Magnesium Sulfate IV Loading (Gm) @ 4 gm (Dianna Suleiman, RN) Medication Comments: LR to 75 ml/hr (Dianna Suleiman, RN) Datetime: 06/12/2016 23:32 Pulse: 86 (QS system process) SpO2 (%): 100 (QS system process) LaborFlag: Antepartum (QS system process) Datetime: 06/12/2016 23:30 NBP Sys/Negin/Mean (mmHg): 150 (QS system process) : 76 (QS system process) : 108 (QS system process) Pulse: 96 (QS system process) Uterine Activity Monitor Mode: External (Dianna Suleiman, RN) Frequency (min): none noted (Dianna Suleiman, RN) Resting Tone (Palpate): Relaxed (Dianna Suleiman, RN) Contraction Comments: pt. denies feeling ctn's (Dianna Suleiman, RN) Assessment A Monitor Mode: External US (Dianna Suleiman, RN) FHR Baseline Rate : 135 (Dianna Suleiman, RN) Variability: Moderate 6-25 bpm (Dianna Suleiman, RN) Accelerations: 15X15 (Dianna Suleiman, RN) Decelerations: None (Dianna Suleiman, RN) Maternal Assessment Level of Consciousness: Fully Conscious (Dianna Suleiman, RN) DTR's/Clonus: DTRs 1+; No Clonus (Dianna Suleiman, RN) Headache: Denies (Dianna Suleiman, RN) Breath Sounds, Left: Clear and Equal (Dianna Suleiman, RN) Breath Sounds, Right: Clear and Equal (Dianna Suleiman, RN) Nausea/Vomiting: Denies (Dianna Suleiman, RN) RUQ Epigastric Pain: Denies (Dianna Suleiman, RN) Communication Communication Comments: Orders received from Dr. soto to being magnesium with a 4 gm load followed by 2 gm/hr and place simms catheter (Dianna Bearden, DEANDRE) LaborFlag: Antepartum (QS system process) Datetime: 06/12/2016 23:28 NBP Sys/Negin/Mean (mmHg): 167 (QS system process) : 86 (QS system process) : 117 (QS system process) Pulse: 86 (QS system process) LaborFlag: Antepartum (QS system process) Datetime: 06/12/2016 23:26 Patient Care Comments: Dr. Soto at bedside. Pt. remains conscious at this time. She continues with neurologic irritability at this time. O2 sats stable (Dianna Bearden RN) Datetime: 06/12/2016 23:24 Communication Communication Comments: Suction set up at bedside (Dianna Suleiman, RN) Datetime: 06/12/2016 23:23 Communication Communication Comments: Pt. called RN in the room and states that she is not feeling well. She states that the room is spinning, dizziness, blurry vision. Pt. placed in supine left tilt. Pt. begins with twitching of upper body (Dianna Suleiman, RN) Datetime: 06/12/2016 23:21 Comments: RN remains at bedside (Dianna Suleiman, RN) Datetime: 06/12/2016 23:17 Pain Pain Scale: 0 (Dianna Suleiman, RN) Patient Care Comments: pt. denies any needs at this time (Dianna Suleiman, RN) LaborFlag: Antepartum (QS system process) Datetime: 06/12/2016 23:15 NBP Sys/Negin/Mean (mmHg): 186 (QS system process) : 111 (QS system process) : 141 (QS system process) Pulse: 98 (QS system process) Comments: u/s adjusted. RN at bedside (Dianna Suleiman, RN) Maternal Assessment Level of Consciousness: Fully Conscious (Dianna Suleiman, RN) DTR's/Clonus: DTRs 1+; No Clonus (Dianna Suleiman, RN) Headache: Denies (Dianna Suleiman, RN) Breath Sounds, Left: Clear and Equal (Dianna Suleiman, RN) Breath Sounds, Right: Clear and Equal (Dianna Suleiman, RN) Nausea/Vomiting: Denies (Dianna Suleiman, RN) RUQ Epigastric Pain: Denies (Dianna Suleiman, RN) LaborFlag: Antepartum (QS system process) Datetime: 06/12/2016 23:13 Patient Care Comments: pt. sitting up and eating at this time (Dianna Suleiman, RN) Datetime: 06/12/2016 23:12 Communication Communication Comments: Pt. sitting up eating at this time (Dianna Suleiman, RN) Datetime: 06/12/2016 23:09 Medication Comments: Hydralzine 20 mg IVP x1 dose (Dianna Suleiman, RN) Datetime: 06/12/2016 23:07 Communication Communication Comments: Report recieved from R. Virtrano, RN and care assumed at this time (Dianna Suleiman, RN) Datetime: 06/12/2016 23:01 Communication Communication Comments: Reviewed VS with Dr. Neilsen. Orders for Hydralazine 20 mg IV x1 now. (Mag Vitrano, RN) Datetime: 06/12/2016 23:00 NBP Sys/Negin/Mean (mmHg): 182 (QS system process) : 113 (QS system process) : 142 (QS system process) Pulse: 75 (QS system process) Respirations: 16 (Mag Vitrano, RN) Uterine Activity Monitor Mode: External (Mag Vitrano, RN) Frequency (min): None (Mag Vitrano, RN) Resting Tone (Palpate): Relaxed (Mag Vitrano, RN) Assessment A Monitor Mode: External US (Mag Vitrano, RN) FHR Baseline Rate : 140 (Mag Vitrano, RN) Variability: Moderate 6-25 bpm (Mag Vitrano, RN) Accelerations: 15X15 (Mag Vitrano, RN) Decelerations: None (Mag Vitrano, RN) LaborFlag: Antepartum (QS system process) Datetime: 06/12/2016:56 Communication Communication Comments: Orders for BGM postprandial and in AM (Mag Vitrano, RN) Datetime: 06/12/2016 22:55 Monitor Interventions for FHR: Ultrasound Adjusted (Mag Vitrano, RN) Datetime: 06/12/2016 22:50 Medication Comments: Zyrtec 10 mg PO (Mag Vitrano, RN) Datetime: 06/12/2016 22:45 Patient Care Comments: First urine of 24 hour urine used for GC/Chlam to count as discard. Start time 24 hour urine to be 2145. (Mag Vitrano, RN) Patient Care Comments: Consents reviewed and signed (Mag Vitrano, RN) Datetime: 06/12/2016 22:34 Medication Comments: Diflucan 150 mg PO (Mag Vitrano, RN) Datetime: 06/12/2016 22:30 Uterine Activity Monitor Mode: External; Palpation (Mag Vitrano, RN) Frequency (min): None (Mag Vitrano, RN) Resting Tone (Palpate): Relaxed (Mag Vitrano, RN) Contraction Comments: Pt denies (Mag Vitrano, RN) Assessment A Monitor Mode: External US (Mag Vitrano, RN) FHR Baseline Rate : 150 (Mag Vitrano, RN) Variability: Moderate 6-25 bpm (Mag Vitrano, RN) Accelerations: None (Mag Vitrano, RN) Decelerations: None (Mag Vitrano, RN) Communication Communication Comments: Orders received from Dr. Neilsen to change pt status to observation, draw STAT CBC, CMP, LDH, Uric Acid, Type and Screen, RPR. Administer Zyrtec 10 mg PO x1 now, Diflucan 150 mg PO x1 now, Risperidol 0.25 mg PO for sleep at bedtime. May have regular diet. Start collection for 24 hour urine. (Mag Vitrano, RN) Datetime: 06/12/2016 22:29 Temperature (F): 98.5 (Mag Vitrano, RN) Temperature (C): 36.9 (QS system process) Temperature Route: Oral (Mag Vitrano, RN) LaborFlag: Antepartum (QS system process) Datetime: 06/12/2016 22:28 NBP Sys/Negin/Mean (mmHg): 169 (QS system process) : 108 (QS system process) : 132 (QS system process) Pulse: 81 (QS system process) Respirations: 16 (Mag Vitrano, RN) LaborFlag: Antepartum (QS system process) Datetime: 06/12/2016 22:23 NBP Sys/Negin/Mean (mmHg): 173 (QS system process) : 110 (QS system process) : 136 (QS system process) Pulse: 85 (QS system process) Respirations: 16 (Mag Vitrano, RN) LaborFlag: Antepartum (QS system process) Datetime: 06/12/2016 22:22 Monitor Interventions for FHR: Ultrasound Adjusted (Mag Vitrano, RN) Datetime: 06/12/2016 22:20 Communication Communication Comments: Reviewed pt history, nursing assessment, toco tracing, wet prep results, urine results. (Mag Vitrano, RN) Communication Communication Comments: Dr. Neilsen at bedside to assess pt (Mag Vitrano, RN) Datetime: 06/12/2016 22:19 Communication Communication Comments: Dr. Soto on unit, reviewed strip and VS. (Mag Vitrano, RN) Datetime: 06/12/2016 22:18 NBP Sys/Negin/Mean (mmHg): 173 (QS system process) : 106 (QS system process) : 133 (QS system process) Pulse: 78 (QS system process) Respirations: 16 (Mag Vitrano, RN) LaborFlag: Antepartum (QS system process) Datetime: 06/12/2016 22:13 NBP Sys/Negin/Mean (mmHg): 175 (QS system process) : 103 (QS system process) : 133 (QS system process) Pulse: 82 (QS system process) Respirations: 16 (Mag Vitrano, RN) LaborFlag: Antepartum (QS system process) Datetime: 06/12/2016 22:05 NBP Sys/Negin/Mean (mmHg): 169 (QS system process) : 99 (QS system process) : 127 (QS system process) Pulse: 81 (QS system process) Respirations: 16 (Mag Vitrano, RN) LaborFlag: Antepartum (QS system process) Datetime: 06/12/2016 22:00 Uterine Activity Monitor Mode: External (Mag Vitrano, RN) Frequency (min): None (Mag Vitrano, RN) Resting Tone (Palpate): Relaxed (Mag Vitrano, RN) Contraction Comments: Pt denies (Mag Vitrano, RN) Assessment A Monitor Mode: External US (Mag Vitrano, RN) FHR Baseline Rate : 150 (Mag Vitrano, RN) Variability: Moderate 6-25 bpm (Mag Vitrano, RN) Accelerations: None (Mag Vitrano, RN) Decelerations: None (Mag Vitrano, RN) Datetime: 06/12/2016 21:50 NBP Sys/Negin/Mean (mmHg): 179 (QS system process) : 105 (QS system process) : 136 (QS system process) Pulse: 77 (QS system process) Respirations: 16 (Mag Vitrano, RN) LaborFlag: Antepartum (QS system process) Datetime: 06/12/2016 21:48 Monitor Interventions for UA: [place] Adjusted (Mag Vitrano, RN) Monitor Interventions for FHR: Ultrasound Adjusted (Mag Vitrano, RN) Patient Care Patient Position/Activity: Right Tilt; Semi-Fowlers (Mag Vitrano, RN) Datetime: 06/12/2016 21:47 Medication Comments: Labetolol 20 mg IV x1 over 2 min (Mag Vitrano, RN) Datetime: 06/12/2016 21:43 Patient Care Comments: GC/Chlam collected (Mag Vitrano, RN) Datetime: 06/12/2016 21:41 I/O Interventions: Up to BR (Mag Vitrano, RN) Datetime: 06/12/2016 21:39 Communication Communication Comments: Reviewed VS with Dr. Neilsen. Orders for Labetolol 20 mg IV x1 now. (Mag Vitrano, RN) Datetime: 06/12/2016 21:36 NBP Sys/Negin/Mean (mmHg): 179 (QS system process) : 99 (QS system process) : 130 (QS system process) Pulse: 77 (QS system process) Respirations: 16 (Mag Vitrano, RN) LaborFlag: Antepartum (QS system process) Datetime: 06/12/2016 21:30 Uterine Activity Monitor Mode: External; Palpation (Mag Vitrano, RN) Frequency (min): None (Mag Vitrano, RN) Resting Tone (Palpate): Relaxed (Mag Vitrano, RN) Contraction Comments: Pt denies (Mag Vitrano, RN) Assessment A Monitor Mode: External US (Mag Vitrano, RN) FHR Baseline Rate : 150 (Mag Vitrano, RN) Variability: Moderate 6-25 bpm (Mag Vitrano, RN) Accelerations: 15X15 (Mag Vitrano, RN) Decelerations: None (Mag Vitrano, RN) Datetime: 06/12/2016 21:20 NBP Sys/Negin/Mean (mmHg): 166 (QS system process) : 97 (QS system process) : 126 (QS system process) Pulse: 78 (QS system process) Respirations: 16 (Mag Vitrano, RN) LaborFlag: Antepartum (QS system process) Datetime: 06/12/2016 21:06 NBP Sys/Negin/Mean (mmHg): 168 (QS system process) : 96 (QS system process) : 125 (QS system process) Pulse: 78 (QS system process) Respirations: 16 (Mag Vitrano, RN) LaborFlag: Antepartum (QS system process) Datetime: 06/12/2016 21:00 Uterine Activity Monitor Mode: External (Mag Vitrano, RN) Frequency (min): None (Mag Vitrano, RN) Resting Tone (Palpate): Relaxed (Mag Vitrano, RN) Contraction Comments: Pt denies (Mag Vitrano, RN) Assessment A Monitor Mode: External US (Mag Vitrano, RN) FHR Baseline Rate : 145 (Mag Vitrano, RN) Variability: Moderate 6-25 bpm (Mag Vitrano, RN) Accelerations: 15X15 (Mag Vitrano, RN) Decelerations: None (Mag Vitrano, RN) Datetime: 06/12/2016 20:50 NBP Sys/Negin/Mean (mmHg): 176 (QS system process) : 91 (QS system process) : 123 (QS system process) Pulse: 79 (QS system process) Respirations: 16 (Mag Vitrano, RN) LaborFlag: Antepartum (QS system process) Datetime: 06/12/2016 20:46 Monitor Interventions for FHR: Ultrasound Adjusted (Mag Vitrano, RN) Datetime: 06/12/2016 20:45 I/O Interventions: Ice Chips Given (Mag Vitrano, RN) Datetime: 06/12/2016 20:43 Monitor Interventions for FHR: Ultrasound Adjusted (Mag Vitrano, RN) Datetime: 06/12/2016 20:42 Patient Care Patient Position/Activity: Left Lateral; Low Fowlers (Mag Vitrano, RN) Datetime: 06/12/2016 20:39 I/O Interventions: Up to BR (Mag Vitrano, RN) Datetime: 06/12/2016 20:37 Patient Care Comments: Reviewed positive THC and positve cocaine results w/ pt; pt reports smoking marijuana but denies cocaine use. Reviewed cessation of illegal substances, pt verbalized understanding. (Mag Vitrano, RN) Datetime: 06/12/2016 20:35 NBP Sys/Negin/Mean (mmHg): 184 (QS system process) : 112 (QS system process) : 139 (QS system process) Pulse: 75 (QS system process) Respirations: 16 (Mag Vitrano, RN) LaborFlag: Antepartum (QS system process) Datetime: 06/12/2016 20:30 Uterine Activity Monitor Mode: External; Palpation (Mag Vitrano, RN) Frequency (min): None (Mag Vitrano, RN) Resting Tone (Palpate): Relaxed (Mag Vitrano, RN) Contraction Comments: Pt denies (Mag Vitrano, RN) Assessment A Monitor Mode: External US (Mag Vitrano, RN) FHR Baseline Rate : 150 (Mag Vitrano, RN) Variability: Moderate 6-25 bpm (Mag Vitrano, RN) Accelerations: 15X15 (Mag Vitrano, RN) Decelerations: None (Mag Vitrano, RN) Patient Care Comments: 18 G IV started L hand site WNL (Mag Vitrano, RN) Datetime: 06/12/2016 20:20 NBP Sys/Negin/Mean (mmHg): 193 (QS system process) : 115 (QS system process) : 148 (QS system process) Pulse: 75 (QS system process) Respirations: 16 (Mag Vitrano, RN) LaborFlag: Antepartum (QS system process) Datetime: 06/12/2016 20:08 Communication Communication Comments: Reviewed VS with DrElroy Soto. Reviewed positive THC and cocaine. Orders to continue monitoring pt; start IV LR at 125 mL/hour. (Mag Vitrano, RN) Datetime: 06/12/2016 20:05 NBP Sys/Negin/Mean (mmHg): 190 (QS system process) : 119 (QS system process) : 149 (QS system process) Pulse: 83 (QS system process) Respirations: 16 (Mag Vitrano, RN) LaborFlag: Antepartum (QS system process) Datetime: 06/12/2016 20:00 Uterine Activity Monitor Mode: External (Mag Vitrano, RN) Frequency (min): None (Mag Vitrano, RN) Resting Tone (Palpate): Relaxed (Mag Vitrano, RN) Contraction Comments: Pt denies (Mag Vitrano, RN) Assessment A Monitor Mode: External US (Mag Vitrano, RN) FHR Baseline Rate : 145 (Mag Vitrano, RN) Variability: Moderate 6-25 bpm (Mag Vitrano, RN) Accelerations: 15X15 (Mag Vitrano, RN) Decelerations: None (Mag Vitrano, RN) Datetime: 06/12/2016 19:58 Patient Care Comments: Wet prep collected (Mag Vitrano, RN) Datetime: 06/12/2016 19:52 Medication Comments: Labetolol 200 mg PO (Mag Vitrano, RN) Datetime: 06/12/2016 19:50 NBP Sys/Negin/Mean (mmHg): 164 (QS system process) : 104 (QS system process) : 129 (QS system process) Pulse: 75 (QS system process) Respirations: 16 (Mag Vitrano, RN) LaborFlag: Antepartum (QS system process) Datetime: 06/12/2016 19:48 Communication Communication Comments: Reviewed VS with Dr. Neilsen, new orders received for Labetolol 200 mg PO x1 now. (Mag Vitrano, RN) Datetime: 06/12/2016 19:44 Communication Communication Comments: Dr. Neilsen aware (Mag Vitrano, RN) Datetime: 06/12/2016 19:40 Communication Communication Comments: Dr. Neilsen notified of pt VS and pt due for evening dose of Labetolol, 50 mg PO. Orders to administer evening dose x1 now. (Mag Vitrano, RN) Datetime: 06/12/2016 19:37 Communication Communication Comments: Records requested from [facility] (Mag Vitrano, RN) Datetime: 06/12/2016 19:35 NBP Sys/Negin/Mean (mmHg): 180 (QS system process) : 116 (QS system process) : 142 (QS system process) Pulse: 81 (QS system process) Respirations: 16 (Mag Vitrano, RN) LaborFlag: Antepartum (QS system process) Datetime: 06/12/2016 19:30 Uterine Activity Monitor Mode: External; Palpation (Mag Vitrano, RN) Frequency (min): None (Mag Vitrano, RN) Resting Tone (Palpate): Relaxed (Mag Vitrano, RN) Contraction Comments: Pt denies (Mag Vitrano, RN) Assessment A Monitor Mode: External US (Mag Vitrano, RN) FHR Baseline Rate : 150 (Mag Vitrano, RN) Variability: Moderate 6-25 bpm (Mag Vitrano, RN) Accelerations: 15X15 (Mag Vitrano, RN) Decelerations: None (Mag Vitrano, RN) Datetime: 06/12/2016 19:23 NBP Sys/Negin/Mean (mmHg): 161 (QS system process) : 97 (QS system process) : 122 (QS system process) Pulse: 81 (QS system process) Respirations: 16 (Mag Vitrano, RN) LaborFlag: Antepartum (QS system process) Datetime: 06/12/2016 19:22 Patient Care Patient Position/Activity: Left Lateral (Mag Vitrano, RN) Patient Care Comments: Lights dimmed (Mag Vitrano, RN) Datetime: 06/12/2016 19:20 NBP Sys/Negin/Mean (mmHg): 180 (QS system process) : 119 (QS system process) : 142 (QS system process) Pulse: 82 (QS system process) Respirations: 16 (Mag Vitrano, RN) LaborFlag: Antepartum (QS system process) Datetime: 06/12/2016 19:16 NBP Sys/Negin/Mean (mmHg): 172 (QS system process) : 117 (QS system process) : 139 (QS system process) Pulse: 89 (QS system process) Respirations: 16 (Mag Vitrano, RN) LaborFlag: Antepartum (QS system process) Datetime: 06/12/2016 19:15 Vital Signs Stage of : Antepartum (Mag Vitrano, RN) Pain Pain Scale: 0 (Mag Julienano, RN) Pain Presence: None/Denies (Mag Vitrano, RN) Pain Type: N/A (Mag Vitrano, RN) Vaginal Exam Vaginal Bleeding: None (Mag Vitrano, RN) Maternal Assessment Level of Consciousness: Fully Conscious (Mag Vitrano, RN) DTR's/Clonus: DTRs 2+; No Clonus (Mag Vitrano, RN) Headache: Denies (Mag Vitrano, RN) Breath Sounds, Left: Clear and Equal (Mag Vitrano, RN) Breath Sounds, Right: Clear and Equal (Mag Vitrano, RN) Nausea/Vomiting: Denies (Mag Vitrano, RN) RUQ Epigastric Pain: Denies (Mag Vitrano, RN) LaborFlag: Antepartum (QS system process)
--- NOTE | 2016-06-13 04:46 | L&D Discharge Summary ---
OB Discharge Summary Datetime Report Generated by CPN: 06/13/2016 04:45 DISCHARGE DIAGNOSIS Diagnosis/Symptoms: Other Diagnoses/Symptoms Other: Seizure disorder Transported to [facility] Gestation: 33.0 Number of Babies in Womb: 1 Parity: 5 DIET/ACTIVITY/RESTRICTIONS Diet: Regular Activity: Normal Activity TEACHING/INSTRUCTIONS/REFERRALS Instructions Given To: Patient and significant other Instructions Understood: Patient Verbalized Understanding; Support Person Verbalized Understanding Referrals: None Educational Materials- Other: Round ligament pain DISCHARGE INFORMATION Discharged AMA: No Discharge Date/Time: 05/06/2016 20:11 Discharged To: Other Discharge Provider Name: Dr. Moreira Accompanied By: Transport team Discharge Method: Ambulance Condition: Stable FOLLOW UP INFORMATION Follow Up With: [facility] Follow Up On: 1-2 Days Follow Up Phone Number: [facility] - Comments: Discussed round ligament pain, prescription for Labetalol, importance of making an appointment with [facility] to have BP monitored and signs and symptoms of when to return to office or hospital with patient and significant other. Both patient and significant other verbalized understanding. Patient discharged home for false labor via ambulation in stable condition. GENERAL INSTR-CALL PROVIDER IF: Contractions: Contractions or cramps become more frequent than 8 in one hour or 4 in 20 minutes; Regular painful contractions every 5 minutes or less for one hour. Time your contractions from the beginning of one to the beginning of the next Pressure: Pressure in your vagina or lower abdomen that may feel like the baby is pushing down Period Like Cramps: Period-like cramps or low dull backache that may come and go Cramps/Diarrhea: Abdominal cramps that may be accompanied by diarrhea Gush of Fluid/Blood: Gush of fluid or blood from your vagina (it is normal to have spotting after vaginal exam or intercourse) Vaginal Discharge: Change in the type or amount of vaginal discharge Decreased Movement: Your baby is not moving as much as usual- 4 movements in 1 hour after drinking and resting on side Temperature: Temperature greater than 100.0(F) orally
--- NOTE | 2016-06-13 04:46 | L&D General Admission ---
General Admit Datetime Report Generated by CPN: 06/13/2016 04:45 CARE Height (in): 62 (06/12/2016 22:33:QS system process) Height (in): 62 (06/12/2016 20:53:QS system process) ALLERGIES Medication Allergies: peanut (06/12/2016); mushroom (06/12/2016) (06/12/2016 20:52:QS system process) LABS Hemoglobin: 10.6 L (06/12/2016 23:04:QS system process) Hematocrit: 32.1 L (06/12/2016 23:04:QS system process) MCV: 88 (06/12/2016 23:04:QS system process)
--- NOTE | 2016-06-21 10:45 | L&D Current Admission ---
Current Admit Datetime Report Generated by CPN: 06/21/2016 10:45 ADMISSION INFORMATION Current Admit Date/Time: 06/12/2016 22:30 (06/12/2016 22:38:Mag Ro RN) Reason for Admission: Observation (06/12/2016 22:38:Mag Ro RN) Chief Complaint: Other (06/12/2016 22:38:Mag Ro RN) Chief Complaint: Suspected Rupture of Membranes (06/12/2016 19:15:Mag Ro RN) Chief Complaint: Other (05/06/2016 20:36:Mag Ro RN) Chief Complaint: Contractions (05/03/2016 01:08:Elena Ramos RN) Medications During : Albuterol MDI; Labetolol; Vitamin; Acetaminophen (Tylenol); Sertraline (Zoloft) (06/12/2016 22:38:Mag Ro RN) Meds During -Oth: Risperidol, Metformin (06/12/2016 22:38:Mag Ro RN) EGA per Dates: 33.0 (06/12/2016 22:38:QS system process) Method of Arrival: Wheelchair (06/12/2016 22:38:Mag Ro RN) Admitted From: Home (06/12/2016 22:38:Mag Ro RN) Reason for Induction: Not Applicable (06/12/2016 22:38:Mag Ro RN) Records Available: Requested (06/12/2016 22:38:Mag Ro RN) General Admission Information: Reviewed; Confirmed (06/12/2016 22:38:Mag Ro RN) General Admission Reviewed By: Ruba Ro RN (06/12/2016 22:38:Mag Ro RN) BELONGINGS/ADVANCED DIRECTIVES Other Belongings: See belongings consent (06/12/2016 22:38:Mag Ro RN) Disposition of Belongings: Kept with Patient (06/12/2016 22:38:Mag Ro RN) Advance Direct for Healthcare: No, and Wants No Information (06/12/2016 22:38:Mag Ro RN) Durable Power of Job Putter Up And Ticket Preparer: No (06/12/2016 22:38:Mag Ro RN) Living Will: No (06/12/2016 22:38:Mag Ro RN) Organ Donor: No (06/12/2016 22:38:Mag Ro RN) Pt Rights Information Given: Yes (06/12/2016 22:38:Mag Ro RN) Pt Understands Pt Rights: Yes (06/12/2016 22:38:Mag Ro RN) LEARNING ASSESSMENT Knowledge Level: Understands L_D Process; Understands Care Activities; Had Pre-Hospital Education; Understands Diagnosis (06/12/2016 22:38:Mag Ro RN) Barriers to Learning: None (06/12/2016 22:38:Mag Ro RN) Learning Readiness: Motivated (06/12/2016 22:38:Mag Ro RN) Learns Best By: 1 to 1 Instruction (06/12/2016 22:38:Mag Ro RN) Learning Needs: Labor and Delivery Process; Pain Management; Symptoms to Report; Treatment Plan; Medication; Diagnosis (06/12/2016 22:38:Mag Ro RN) DOMESTIC VIOLANCE SCREENING Dom Viol Threatened/Hurt: No (06/12/2016 22:38:Mag Ro RN) Hx of Abuse/Neglect past 2yrs: No (06/12/2016 22:38:Mag Ro RN) Feel Unsafe Going Home: No (06/12/2016 22:38:Mag Ro RN) Addt'l Observ Indicating Abuse: No (06/12/2016 22:38:Mag Ro RN) Reason Unable to Complete Screen: N/A, Screen Completed (06/12/2016 22:38:Mag Ro RN) Considered Personal Harm/Suicide: No (06/12/2016 22:38:Mag Ro RN) NUTRITIONAL/FUNCTIONAL SCREENING Problem with Appetite >5 Days: No (06/12/2016 22:38:Mag Ro RN) Chew/Swallow Difficulties: No (06/12/2016 22:38:Mag Ro RN) Inappropriate Wt Gain/Loss: No (06/12/2016 22:38:Mag Ro RN) Presence Skin Breakdown/Ulcer: No (06/12/2016 22:38:Mag Ro RN) Special Diet: No (06/12/2016 22:38:Mag Ro RN) Pt Requests Field Care Coordinator Visit: No (06/12/2016 22:38:Mag Ro RN) Hx of Any of the Following?: N/A (06/12/2016 22:38:Mag Ro RN) New Diagnosis of: N/A (06/12/2016 22:38:Mag Ro RN) Requires Assist w/Ambulation: No (06/12/2016 22:38:Mag Ro RN) Uses Assist Device to Ambulate: No (06/12/2016 22:38:Mag Ro RN) Pt Requires Help w/ADL's: No (06/12/2016 22:38:Mag Ro RN)
--- NOTE | 2016-06-21 10:46 | L&D Discharge Summary ---
OB Discharge Summary Datetime Report Generated by CPN: 06/21/2016 10:45 DISCHARGE DIAGNOSIS Diagnosis/Symptoms: Other Diagnoses/Symptoms Other: Seizure disorder Transported to [facility] Gestation: 34.1 Number of Babies in Womb: 1 Parity: 5 DIET/ACTIVITY/RESTRICTIONS Diet: Regular Activity: Normal Activity TEACHING/INSTRUCTIONS/REFERRALS Instructions Given To: Patient and significant other Instructions Understood: Patient Verbalized Understanding; Support Person Verbalized Understanding Referrals: None Educational Materials- Other: Round ligament pain DISCHARGE INFORMATION Discharged AMA: No Discharge Date/Time: 05/06/2016 20:11 Discharged To: Other Discharge Provider Name: Dr. Moreira Accompanied By: Transport team Discharge Method: Ambulance Condition: Stable FOLLOW UP INFORMATION Follow Up With: [facility] Follow Up On: 1-2 Days Follow Up Phone Number: [facility] - Comments: Discussed round ligament pain, prescription for Labetalol, importance of making an appointment with [facility] to have BP monitored and signs and symptoms of when to return to office or hospital with patient and significant other. Both patient and significant other verbalized understanding. Patient discharged home for false labor via ambulation in stable condition. GENERAL INSTR-CALL PROVIDER IF: Contractions: Contractions or cramps become more frequent than 8 in one hour or 4 in 20 minutes; Regular painful contractions every 5 minutes or less for one hour. Time your contractions from the beginning of one to the beginning of the next Pressure: Pressure in your vagina or lower abdomen that may feel like the baby is pushing down Period Like Cramps: Period-like cramps or low dull backache that may come and go Cramps/Diarrhea: Abdominal cramps that may be accompanied by diarrhea Gush of Fluid/Blood: Gush of fluid or blood from your vagina (it is normal to have spotting after vaginal exam or intercourse) Vaginal Discharge: Change in the type or amount of vaginal discharge Decreased Movement: Your baby is not moving as much as usual- 4 movements in 1 hour after drinking and resting on side Temperature: Temperature greater than 100.0(F) orally
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
--- NOTE | 2016-06-21 10:46 | L&D Admission Assessment ---
LD ADM ASMT Datetime Report Generated by N: 06/21/2016 10:45 Weight (lb): 209 (06/21/2016 08:19:QS system process) Weight (kg): 95.0 (06/21/2016 08:19:QS system process) BMI: 38.2 (06/21/2016 08:19:QS system process)
== END 2016-06-13 01:12 | disposition short-term general hospital (02) ==
LOC: EDSTATUS 18:46 → LC 18:49 → LR 22:31 → UNDOADMOB 22:31 → LC 06-13 01:12 → UNDODISOB 06-13 01:12
PROVIDERS: ATTEND Specialist
PROC: 4A1HXCZ Monitoring of Products of Conception, Cardiac Rate, External Approach (ICD-10-PCS; principal; 2016-06-12)
DX: O99.353 Diseases of the nervous system complicating pregnancy, third trimester (principal); G40.909 Epilepsy, unspecified, not intractable, without status epilepticus; O10.913 Unspecified pre-existing hypertension complicating pregnancy, third trimester; O24.913 Unspecified diabetes mellitus in pregnancy, third trimester; O26.893 Other specified pregnancy related conditions, third trimester; R10.2 Pelvic and perineal pain; Z3A.34 34 weeks gestation of pregnancy
CPT/HCPCS: 59025; 84112; 86900; 86901; 36415; 87210; 86850; 82962; 83615; 84550; 85025; 86592; 80053; 81001; 80307; 80353; 87491; 87591; G0480 ×3; J3475; J3490 ×7; J0360

== ENCOUNTER 2017-09-17 14:41 | Emergency (ER) | payer SELFPAY ==
--- NOTE | 2017-09-17 16:15 | ER Document Report ---
ED Medical Screen (RME) - General Chief Complaint: Pain All Over Stated Complaint: LEFT SIDE PAIN Time Seen by Provider: 09/17/17 15:56 Mode of Arrival: Ambulatory Information source: Patient TRAVEL OUTSIDE OF THE [place] IN LAST 30 DAYS: No - HPI Onset: Other - 3 DAYS AGO Onset/Duration: Sudden Quality of pain: Sharp Associated Symptoms: Chest pain, Shortness of breath Exacerbated by: Denies Relieved by: Other - RESOLVED AFTER HOT SHOWER & TYLENOL Similar symptoms previously: Yes - DURING Recently seen / treated by doctor: No - Related Data Smoking: Cigarettes Allergies/Adverse Reactions: mushroom Allergy (Verified 09/17/17 14:54) peanut [Peanut] Allergy (Verified 09/17/17 14:54) Home Medications: procardia, dilantin, metformin, albuterol, control pill , qvar, Past Medical History - General Information source: Patient - Social History Cigarette use (# per day): Yes Chew tobacco use (# tins/day): No Frequency of alcohol use: Occasional Drug Abuse: None Lives with: Spouse/Significant other - Past Medical History Cardiac Medical History: Reports: Hx Hypertension Pulmonary Medical History: Reports: Hx Asthma Neurological Medical History: Reports: Hx Seizures Endocrine Medical History: Reports: Hx Diabetes Mellitus Type 2 Renal/ Medical History: Reports: Hx Ectopic . Denies: Hx Peritoneal Dialysis Musculoskeltal Medical History: Reports Other - SLE Skin Medical History: Reports Hx MRSA Psychiatric Medical History: Reports: Hx Bipolar Disorder Infectious Medical History: Reports: Hx MRSA Past Surgical History: Reports: Hx Gynecologic Surgery - Ectopic, left fallopian tube removed - Immunizations Hx Diphtheria, Pertussis, Tetanus Vaccination: No Review of Systems - Review of Systems Constitutional: No symptoms reported EENT: No symptoms reported Cardiovascular: See HPI Respiratory: See HPI Gastrointestinal: No symptoms reported Genitourinary: No symptoms reported Musculoskeletal: See HPI, Back pain Neurological/Psychological: See HPI, Numbness - L. L.E. Physical Exam - Vital signs Vitals: Temp Pulse Resp BP Pulse Ox 98.7 F 100 18 152/114 H 98 09/17/17 15:03 09/17/17 15:03 09/17/17 15:03 09/17/17 15:03 09/17/17 15:03 Interpretation: Hypertensive. No: Tachycardic, Tachypneic - General General appearance: Appears well, Alert In distress: None - HEENT Head: Normocephalic Eyes: Normal Conjunctiva: Normal Ears: Normal Nasal: Normal Mouth/Lips: Normal Mucous membranes: Normal - Respiratory Respiratory status: No respiratory distress - Cardiovascular Rhythm: Regular Heart sounds: Normal auscultation - Abdominal Inspection: Normal - Back Back: Normal - Extremities General upper extremity: Normal inspection General lower extremity: Normal inspection. No: Tender, Edema - Neurological Neuro grossly intact: Yes Cognition: Normal Orientation: AAOx4 - Skin Skin Temperature: Warm Skin Moisture: Dry Skin Color: Normal Skin Turgor: Elastic Course - Vital Signs Vital signs: Temp Pulse Resp BP Pulse Ox 98.7 F 100 18 152/114 H 98 09/17/17 15:03 09/17/17 15:03 09/17/17 15:03 09/17/17 15:03 09/17/17 15:03
[2017-09-17 16:50] LABS: ABSOLUTE BASOPHILS # (AUTO) 0.1 10^3/uL (0.0-0.2); ABSOLUTE EOSINOPHILS # (AUTO) 0.4 10^3/uL (0.0-0.6); ABSOLUTE LYMPHOCYTES (AUTO) 2.2 10^3/uL (0.5-4.7); ABSOLUTE MONOCYTES (AUTO) 0.5 10^3/uL (0.1-1.4); ABSOLUTE NEUT (AUTO) 2.8 10^3/uL (1.7-8.2); BASOPHILS % (AUTO) 0.9 % (0-2); HEMATOCRIT 38.3 % (36.0-47.0); HEMOGLOBIN 12.8 g/dL (12.0-15.5); LYMPHOCYTES % (AUTO) 37.8 % (13-45); MEAN CORPUSCULAR HEMOGLOBIN 28.1 pg (27.0-33.4); MEAN CORPUSCULAR HGB CONC 33.5 g/dL (32.0-36.0); MEAN CORPUSCULAR VOLUME 84 fl (80-97); MONOCYTES % (AUTO) 7.9 % (3-13); PLATELET COUNT 311 10^3/uL (150-450); RED BLOOD COUNT 4.55 10^6/uL (3.72-5.28); RED CELL DISTRIBUTION WIDTH 15.4 % (11.5-14.0); SEGMENTED NEUTROPHILS % (AUTO) 47.4 % (42-78); TOTAL CELLS COUNTED % (AUTO) 100 %; WHITE BLOOD COUNT 5.8 10^3/uL (4.0-10.5)
--- NOTE | 2017-09-17 17:01 | RADIOLOGY REPORT (SQ) ---
EXAM DESCRIPTION: CHEST 2 VIEWS COMPLETED DATE/TIME: 09/17/2017 4:47 pm REASON FOR STUDY: CHEST PAIN COMPARISON: 03/03/2016 EXAM PARAMETERS: NUMBER OF VIEWS: two views TECHNIQUE: Digital Frontal and Lateral radiographic views of the chest acquired. RADIATION DOSE: NA LIMITATIONS: none FINDINGS: LUNGS AND PLEURA: No opacities, masses or pneumothorax. No pleural effusion. MEDIASTINUM AND HILAR STRUCTURES: No masses or contour abnormalities. HEART AND VASCULAR STRUCTURES: Heart normal size. No evidence for failure. BONES: No acute findings. HARDWARE: None in the chest. OTHER: No other significant finding. IMPRESSION: NO ACUTE RADIOGRAPHIC FINDING IN THE CHEST. TECHNICAL DOCUMENTATION: JOB ID: [id number] [employer]- All Rights Reserved Reading location - IP/workstation name: [email or web address]
[2017-09-17 17:04] LABS: ALANINE AMINOTRANSFERASE 40 U/L (9-52); ALBUMIN 3.6 g/dL (3.5-5.0); ALKALINE PHOSPHATASE 67 U/L (38-126); ANION GAP 10 (5-19); ASPARTATE AMINO TRANSFERASE 31 U/L (14-36); BILIRUBIN,DIRECT 0.1 mg/dL (0.0-0.4); BILIRUBIN,TOTAL 0.1 mg/dL (0.2-1.3); BLOOD UREA NITROGEN 12 mg/dL (7-20); CALCIUM 9.4 mg/dL (8.4-10.2); CARBON DIOXIDE 29 mmol/L (22-30); CHLORIDE 105 mmol/L (98-107); CREATINE KINASE 200 U/L (30-135); GLUCOSE 110 mg/dL (75-110); POTASSIUM 4.3 mmol/L (3.6-5.0); SODIUM 144.3 mmol/L (137-145); TOTAL PROTEIN 6.5 g/dL (6.3-8.2)
--- NOTE | 2017-09-17 17:04 | ER Document Report ---
ED General - General Chief Complaint: Pain All Over Stated Complaint: LEFT SIDE PAIN Time Seen by Provider: 09/17/17 15:56 Mode of Arrival: Ambulatory Information source: Patient TRAVEL OUTSIDE OF THE U.S. IN LAST 30 DAYS: No - HPI Patient complains to provider of: cp, sob, pain and numbness to right leg Notes: The patient is here with complaints of chest pain, shortness of breath, pain and numbness to the right leg. Patient states that 3 days ago she developed a sudden onset of left-sided chest pain that was radiating down her left arm. This lasted for approximately 20 minutes and then resolved. Since that time she has been having intermittent episodes of chest pain. She denies any specific aggravating factors. She does complain of some mild shortness of breath. She states that she has a history of asthma. She denies any fever or significant cough. She states that for the last few days she has had some pain in her right leg and now she is having numbness in her right leg. Specifically seems to be worse in the right calf. She denies any traumatic injury. She denies any lower back pain. She denies any abdominal pain. No nausea, vomiting , diarrhea. Patient has a past medical history of hypertension, diabetes, lupus. She is on control pills but cannot remember what when she takes. She is a smoker. She denies any recent long trips or surgeries, and denies any history of DVT or PE. She denies any bowel or bladder dysfunction. She denies any weakness in the leg. She denies any other complaints at this time. - Related Data Allergies/Adverse Reactions: mushroom Allergy (Verified 09/17/17 14:54) peanut [Peanut] Allergy (Verified 09/17/17 14:54) Home Medications: procardia, dilantin, metformin, albuterol, control pill , qvar, Past Medical History - General Information source: Patient - Social History Smoking Status: Current Every Day Smoker Cigarette use (# per day): Yes Chew tobacco use (# tins/day): No Frequency of alcohol use: Occasional Drug Abuse: None Lives with: Spouse/Significant other Family History: Arthritis, CAD, CVA, DM, Hyperlipidemia, Hypertension - with secondary renal failure, Thyroid Disfunction Patient has suicidal ideation: No Patient has homicidal ideation: No - Past Medical History Cardiac Medical History: Reports: Hx Hypertension Pulmonary Medical History: Reports: Hx Asthma Neurological Medical History: Reports: Hx Seizures Endocrine Medical History: Reports: Hx Diabetes Mellitus Type 2 Renal/ Medical History: Reports: Hx Ectopic . Denies: Hx Peritoneal Dialysis Musculoskeltal Medical History: Reports Other - SLE Skin Medical History: Reports Hx MRSA Psychiatric Medical History: Reports: Hx Bipolar Disorder Infectious Medical History: Reports: Hx MRSA Past Surgical History: Reports: Hx Gynecologic Surgery - Ectopic, left fallopian tube removed - Immunizations Hx Diphtheria, Pertussis, Tetanus Vaccination: No Review of Systems - Review of Systems -: Yes All other systems reviewed and negative Physical Exam - Vital signs Vitals: Temp Pulse Resp BP Pulse Ox 98.7 F 100 18 152/114 H 98 09/17/17 15:03 09/17/17 15:03 09/17/17 15:03 09/17/17 15:03 09/17/17 15:03 - Notes Notes: GENERAL: alert, cooperative, nontoxic, no distress. HEAD: normocephalic, atraumatic EYES: conjunctiva pink without discharge, no external redness or swelling. EARS: no external swelling, no external redness NOSE: atraumatic, no external swelling MOUTH/THROAT: mucous membranes moist and pink, posterior pharynx without erythema, swelling, exudate. No trismus or drooling. NECK: soft, supple, full range of motion, no meningismus. CHEST: no distress, lungs clear and equal throughout. No wheezing, rales, rhonchi. CARDIAC: regular rate and rhythm, no murmur, normal capillary refill, normal pulses. No peripheral edema noted. ABDOMEN: soft, nontender, no pusatile mass. BACK: No CVA tenderness. EXTREMITIES: full range of motion of all extremities. No redness, no swelling. No swelling, no palpable cord. No redness. Compartments are soft. Normal pulse distally NEURO: alert and oriented A&O x 3, no focal deficits, full range of motion of all extremities. 5 out of 5 flexion and extension of the lower extremities bilaterally. Patellar and Achilles deep tendon reflexes are +2 bilaterally. Patient complains of slightly decreased sensation in the right leg. Patient can dorsiflex the great toes bilaterally. PYSCH: appropriate mood, affect. Patient is cooperative. SKIN: pink, warm, dry, no rash. Course - Re-evaluation Re-evalutation: 09/17/17 20:05 Patient is nontoxic appearing with stable vitals. Is here with complaints of left-sided chest pain as well as some right leg pain and numbness. Pain seems to be somewhat pleuritic in nature. Patient has a history of lupus, hypertension, diabetes, smoking, control, family history of CAD. Her EKG does show some flipped T waves in lead V5 and V6 which is changed from previous EKGs we have done. Based on all of her risk factors for PE, a CTA of the chest was ordered, this showed no PE or acute abnormalities. Venous Doppler of the right lower extremity shows no acute abnormalities. She has a normal neurovascular exam to the right leg. She has no sign or risk of cauda equina, epidural abscess/bleed. Troponin is negative. Her d-dimer was negative. Based on the fact that the patient has so many risk factors, has chest pain, and has an abnormal EKG, I would like to admit the patient to the hospital for further evaluation. Patient states that she would prefer to go home and follow- up with her doctors in [place] tomorrow. I explained that there is the risk of leaving without having further evaluation based on her symptoms and her change in her EKG, she verbalized an understanding of this. The patient and/or family have decided to leave against medical advice. The patient and/or family are of sound mind to make this decision. The risks of leaving were discussed with the patient and/or family who verbalized an understanding of these risks. The possibility of worsening condition, chance of increased morbidity, disability, mortality, and even were discussed. The patient and/or family still choose to leave against medical advice. Strict return instructions were given. They were also instructed to return to the emergency department for any concerns not outlined in the return instructions. The patient and/or family have decided to leave against medical advice. The patient and/or family are of sound mind to make this decision. The risks of leaving were discussed with the patient and/or family who verbalized an understanding of these risks. The possibility of worsening condition, chance of increased morbidity, disability, mortality, and even were discussed. The patient and/or family still choose to leave against medical advice. Strict return instructions were given. They were also instructed to return to the emergency department for any concerns not outlined in the return instructions. - Vital Signs Vital signs: Temp Pulse Resp BP Pulse Ox 98.7 F 100 18 152/114 H 98 09/17/17 15:03 09/17/17 15:03 09/17/17 15:03 09/17/17 15:03 09/17/17 15:03 - Laboratory Result Diagrams: 09/17/17 16:20 09/17/17 16:20 Laboratory results interpreted by me: 09/17/17 09/17/17 16:20 16:20 RDW 15.4 H Total Bilirubin 0.1 L Creatine Kinase 200 H - Diagnostic Test Radiology reviewed: Image reviewed, Reports reviewed - Venous Doppler of right leg negative. Chest x-ray negative. CTA of the chest negative. - EKG Interpretation by Me EKG shows normal: Sinus rhythm, [place], Intervals, QRS Complexes Rate: Normal When compared to previous EKG there are: Changes noted Additional EKG results interpreted by me: 09/17/17 17:26 Flipped T-wave in V5 and V6 which is changed from previous EKG. Discharge - Discharge Clinical Impression: Abnormal EKG Chest pain Qualifiers: Chest pain type: unspecified Qualified Code(s): R07.9 - Chest pain, unspecified Condition: Stable Disposition: AGAINST MEDICAL ADVICE Instructions: Chest Pain of Unclear Cause ([facility]) Additional Instructions: Follow-up with your doctor tomorrow for recheck. Please return to the emergency department if you develop worsening pain, difficulty breathing, fever , weakness in her leg, difficulty controlling her bowels or bladder, or if you have any further concerns. Your blood pressure was elevated during today's visit. Have this rechecked with your doctor. Forms: Elevated Blood Pressure, Smoking Cessation Education Referrals: [facility] [Provider Group] - Follow up as needed
[2017-09-17 17:16] LABS: CREATINE KINASE MB 1.09 ng/mL (<4.55); TROPONIN I < 0.012 ng/mL
--- NOTE | 2017-09-17 18:40 | RADIOLOGY REPORT (SQ) ---
EXAM DESCRIPTION: VENOUS UNILATERAL LOWER COMPLETED DATE/TIME: 09/17/2017 6:25 pm REASON FOR STUDY: pain in right calf COMPARISON: None. TECHNIQUE: Dynamic and static stevens scale and color images acquired of the right leg venous system. S elected spectral images acquired with additional compression and augmentation maneuvers. The contrala teral common femoral vein and saphenofemoral junction were also imaged. Images stored on PACS. LIMITATIONS: None. FINDINGS: COMMON FEMORAL: Normal phasicity, compression and augmentation. No visualized echogenic ma terial on stevens scale. No defects on color images. FEMORAL: Normal compression and augmentation. No visualized echogenic material on stevens scale. No defe cts on color images. POPLITEAL: Normal compression, augmentation. No visualized echogenic material on stevens scale. No defec ts on color images. CALF VESSELS: Normal compression, augmentation. No visualized echogenic material on stevens scale. No de fects on color images. GSV and SSV: Normal compression, augmentation. No visualized echogenic material on stevens scale. No def ects on color images. ANY DEEP VENOUS INSUFFICIENCY: Not evaluated. ANY EVIDENCE OF POPLITEAL CYST: No. OTHER: No other significant finding. CONTRALATERAL COMMON FEMORAL VEIN AND SAPHENOFEMORAL JUNCTION: Normal phasicity, compression and augmentation. No visualized echogenic material on stevens scale. No de fects on color images. IMPRESSION: NO EVIDENCE OF DVT OR SVT IN THE RIGHT LEG. TECHNICAL DOCUMENTATION: JOB ID: [id number] [employer]- All Rights Reserved Reading location - IP/workstation name: [email or web address]
--- NOTE | 2017-09-17 19:54 | RADIOLOGY REPORT (SQ) ---
EXAM DESCRIPTION: CTA CHEST COMPLETED DATE/TIME: 09/17/2017 7:18 pm REASON FOR STUDY: cp, sob COMPARISON: None. TECHNIQUE: CT scan of the chest performed using helical scanning technique with dynamic intravenous contrast injection. Images reviewed with lung, soft tissue and bone windows. Reconstructed coronal and sagittal MPR images reviewed. Additional 3 dimensional post-processing performed to develop Maximal Intensity Projection images (UT P). All images stored on PACS. All CT scanners at this facility use dose modulation, iterative reconstruction, and/or weight based d osing when appropriate to reduce radiation dose to as low as reasonably achievable (ALARA). [facility]: Dose Right [facility]: CareDose [facility]: Dose Right [facility]: Teradose 4D [facility]: Azuna CONTRAST TYPE AND DOSE: contrast/concentration: Isovue 370.00 mg/ml; Total Contrast Delivered: 131.0 ml; Total Saline Delivered: 167.0 ml Contrast bolus optimized for the pulmonary arteries. Not diagnostic for the aorta. RENAL FUNCTION: BUN 12 creatinine 0.77 RADIATION DOSE: CT Rad equipment meets quality standard of care and radiation dose reduction techniq ues were employed. CTDIvol: 3.3 - 25.2 mGy. DLP: 1903 mGy-cm. . LIMITATIONS: Suboptimal bolus timing. FINDINGS: LUNGS AND PLEURA: No masses, infiltrates, pneumothorax. No pleural effusions, calcificati ons. AORTA AND GREAT VESSELS: No aneurysm. Contrast bolus not optimized for the aorta. HEART: No pericardial effusion. No significant coronary artery calcifications. PULMONARY ARTERIES: No emboli visualized in the main pulmonary arteries or the segmental branches. HILAR AND MEDIASTINAL STRUCTURES: No identified masses or abnormal nodes. HARDWARE: None in the chest. UPPER ABDOMEN: No significant findings. Limited exam. THYROID AND OTHER SOFT TISSUES: No masses. No adenopathy. BONES: No acute or significant finding. 3D MIPS: Confirm above findings. OTHER: No other significant finding. IMPRESSION: NORMAL CTA OF THE CHEST. NO PULMONARY EMBOLI. COMMENT: Quality ID # [id number]: Final reports with documentation of one or more dose reduction techniques (e.g., Automated exposure control, adjustment of the mA and/or kV according to patient size, use of iterative reconstruction technique) TECHNICAL DOCUMENTATION: JOB ID: [id number] [employer]- All Rights Reserved Reading location - IP/workstation name: [email or web address]
[2017-09-17 20:16] VITALS: BP 156/111
--- NOTE | 2017-09-17 23:47 | EKG REPORT ---
SEVERITY:- ABNORMAL ECG - SINUS RHYTHM PROBABLE LEFT VENTRICULAR HYPERTROPHY : Confirmed by: Carlos Gutierrez 17-Sep-2017 23:46:28
== END 2017-09-17 20:15 | disposition left against medical advice (07) ==
LOC: ER 14:41
DX: R07.9 Chest pain, unspecified (principal); R06.02 Shortness of breath; R20.0 Anesthesia of skin; M79.605 Pain in left leg; M79.602 Pain in left arm; R94.31 Abnormal electrocardiogram [ECG] [EKG]; Z79.899 Other long term (current) drug therapy; I10 Essential (primary) hypertension; E11.9 Type 2 diabetes mellitus without complications; J45.909 Unspecified asthma, uncomplicated; F17.210 Nicotine dependence, cigarettes, uncomplicated
CPT/HCPCS: 36415; 71046; 71275; 80053; 82550; 82553; 83036; 84484; 85025; 85379; 93005; 93010; 93971; 99284

== ENCOUNTER 2017-11-12 11:25 | Emergency (ER) | payer MEDICAID ==
[2017-11-12] MEDS ORDERED: IPRATROPIUM/ALBUTEROL 0.5-2.5 MG/3 ML AMPUL NEB ONE (12:30)
[2017-11-12] MEDS ORDERED: NORMAL SALINE 1000 ML 1,000 ML IV ONE (12:30)
[2017-11-12] MEDS ORDERED: PREDNISONE 20 MG TABLET PO ONE (12:30)
--- NOTE | 2017-11-12 12:32 | ER Document Report ---
ED Medical Screen (RME) - General Chief Complaint: Fever Stated Complaint: FEVER Time Seen by Provider: 11/12/17 12:24 Notes: RAPID MEDICAL EVALUATION DISCLOSURE I have seen this patient as part of a Rapid Medical Evaluation and, if applicable, placed any initially appropriate orders. The patient will be seen and fully evaluated, including a full history and physical exam, by a provider ( in Main ED or Fast Track) when a room becomes available. 27-year-old female PMH lupus here with 5 days of cough (productive green sputum ) fevers chills shortness of breath wheezing. She has been taking Tylenol with minimal relief. She has a history of pneumonia and this feels fairly similar to her last episode of pneumonia. He does not take any medication for her lupus. EXAM Mild to moderate end expiratory wheezes Moderately tachycardic TRAVEL OUTSIDE OF THE [place]. IN LAST 30 DAYS: No - Related Data Allergies/Adverse Reactions: mushroom Allergy (Verified 11/12/17 11:26) peanut [Peanut] Allergy (Verified 11/12/17 11:26) Past Medical History - Social History Chew tobacco use (# tins/day): No Frequency of alcohol use: None - Past Medical History Cardiac Medical History: Reports: Hx Hypertension Pulmonary Medical History: Reports: Hx Asthma Neurological Medical History: Reports: Hx Seizures Endocrine Medical History: Reports: Hx Diabetes Mellitus Type 2 Renal/ Medical History: Reports: Hx Ectopic . Denies: Hx Peritoneal Dialysis Skin Medical History: Reports Hx MRSA Psychiatric Medical History: Reports: Hx Bipolar Disorder Infectious Medical History: Reports: Hx MRSA Past Surgical History: Reports: Hx Gynecologic Surgery - Ectopic, left fallopian tube removed - Immunizations Hx Diphtheria, Pertussis, Tetanus Vaccination: No Physical Exam - Vital signs Vitals: Temp Pulse Resp BP Pulse Ox 99.4 F 127 H 28 H 143/108 H 95 11/12/17 11:34 11/12/17 11:34 11/12/17 11:34 11/12/17 11:34 11/12/17 11:34 Course - Vital Signs Vital signs: Temp Pulse Resp BP Pulse Ox 99.4 F 127 H 28 H 143/108 H 95 11/12/17 11:34 11/12/17 11:34 11/12/17 11:34 11/12/17 11:34 11/12/17 11:34
[2017-11-12 13:22] LABS: ABSOLUTE EOSINOPHILS # (AUTO) 0.4 10^3/uL (0.0-0.6); ABSOLUTE LYMPHOCYTES (AUTO) 1.3 10^3/uL (0.5-4.7); ABSOLUTE MONOCYTES (AUTO) 0.6 10^3/uL (0.1-1.4); ABSOLUTE NEUT (AUTO) 6.2 10^3/uL (1.7-8.2); BASOPHILS % (AUTO) 0.4 % (0-2); EOSINOPHILS % (AUTO) 4.4 % (0-6); HEMATOCRIT 38.3 % (36.0-47.0); LYMPHOCYTES % (AUTO) 15.2 % (13-45); MEAN CORPUSCULAR HEMOGLOBIN 28.3 pg (27.0-33.4); MEAN CORPUSCULAR HGB CONC 33.9 g/dL (32.0-36.0); MEAN CORPUSCULAR VOLUME 83 fl (80-97); MONOCYTES % (AUTO) 7.5 % (3-13); PLATELET COUNT 275 10^3/uL (150-450); RED BLOOD COUNT 4.59 10^6/uL (3.72-5.28); RED CELL DISTRIBUTION WIDTH 15.4 % (11.5-14.0); SEGMENTED NEUTROPHILS % (AUTO) 72.5 % (42-78); TOTAL CELLS COUNTED % (AUTO) 100 %; WHITE BLOOD COUNT 8.5 10^3/uL (4.0-10.5)
--- NOTE | 2017-11-12 13:38 | RADIOLOGY REPORT (SQ) ---
EXAM DESCRIPTION: CHEST 2 VIEWS COMPLETED DATE/TIME: 11/12/2017 1:28 pm REASON FOR STUDY: cough eval pneumonia COMPARISON: Two-view chest 09/17/2017, 02/22/2016 EXAM PARAMETERS: NUMBER OF VIEWS: two views TECHNIQUE: Digital Frontal and Lateral radiographic views of the chest acquired. RADIATION DOSE: NA LIMITATIONS: none FINDINGS: LUNGS AND PLEURA: No opacities, masses or pneumothorax. No pleural effusion. MEDIASTINUM AND HILAR STRUCTURES: No masses or contour abnormalities. HEART AND VASCULAR STRUCTURES: Heart normal size. No evidence for failure. BONES: No acute findings. HARDWARE: None in the chest. OTHER: No other significant finding. IMPRESSION: NO ACUTE RADIOGRAPHIC FINDING IN THE CHEST. TECHNICAL DOCUMENTATION: JOB ID: [id number] [employer]- All Rights Reserved Reading location - IP/workstation name: [email or web address]
[2017-11-12 13:41] LABS: ALANINE AMINOTRANSFERASE 30 U/L (9-52); ALBUMIN 3.9 g/dL (3.5-5.0); ALKALINE PHOSPHATASE 75 U/L (38-126); ANION GAP 12 (5-19); ASPARTATE AMINO TRANSFERASE 25 U/L (14-36); BILIRUBIN,DIRECT 0.3 mg/dL (0.0-0.4); BILIRUBIN,TOTAL 0.5 mg/dL (0.2-1.3); BLOOD UREA NITROGEN 7 mg/dL (7-20); CALCIUM 9.4 mg/dL (8.4-10.2); CARBON DIOXIDE 22 mmol/L (22-30); CHLORIDE 106 mmol/L (98-107); GLUCOSE 133 mg/dL (75-110); POTASSIUM 3.7 mmol/L (3.6-5.0); SODIUM 139.6 mmol/L (137-145); TOTAL PROTEIN 7.2 g/dL (6.3-8.2)
[2017-11-12] MEDS ORDERED: DIPHENHYDRAMINE HCL 50 MG CAPSULE PO ONE (15:09)
[2017-11-12] MEDS ORDERED: METOCLOPRAMIDE HCL 10 MG TABLET PO ONE (15:09)
--- NOTE | 2017-11-12 15:09 | ER Document Report ---
ED General - General Chief Complaint: Fever Stated Complaint: FEVER Time Seen by Provider: 11/12/17 12:24 Mode of Arrival: Ambulatory Information source: Patient, [facility] Records Notes: 27-year-old female with diabetes, lupus, asthma, hypertension presents with complaint cough, myalgias, shortness of breath and bilateral flank pain with coughing. Patient states that cough started 4 days prior to arrival. She describes it as persistent, productive with green sputum. Patient also states that she has had a temperature of 100.1 at home. She has tried Tylenol and albuterol without relief. She denies any sick contacts or recent hospitalizations. Patient is not currently on any medications for lupus. TRAVEL OUTSIDE OF THE [place] IN LAST 30 DAYS: No - HPI Onset: Last week Onset/Duration: Gradual, Persistent Quality of pain: Achy Severity: Mild Associated symptoms: Chest pain - With coughing only, Chills, Productive cough, Fever, Shortness of breath Exacerbated by: Walking Relieved by: Denies Similar symptoms previously: Yes Recently seen / treated by doctor: No - Related Data Allergies/Adverse Reactions: mushroom Allergy (Verified 11/12/17 11:26) peanut [Peanut] Allergy (Verified 11/12/17 11:26) Past Medical History - General Information source: Patient - Social History Smoking Status: Never Smoker Chew tobacco use (# tins/day): No Frequency of alcohol use: None Drug Abuse: None Lives with: Family, Spouse/Significant other Family History: Arthritis, CAD, CVA, DM, Hyperlipidemia, Hypertension - with secondary renal failure, Thyroid Disfunction Patient has suicidal ideation: No Patient has homicidal ideation: No - Past Medical History Cardiac Medical History: Reports: Hx Hypertension Pulmonary Medical History: Reports: Hx Asthma Neurological Medical History: Reports: Hx Seizures Endocrine Medical History: Reports: Hx Diabetes Mellitus Type 2 Renal/ Medical History: Reports: Hx Ectopic . Denies: Hx Peritoneal Dialysis Skin Medical History: Reports Hx MRSA Psychiatric Medical History: Reports: Hx Bipolar Disorder Infectious Medical History: Reports: Hx MRSA Past Surgical History: Reports: Hx Gynecologic Surgery - Ectopic, left fallopian tube removed - Immunizations Hx Diphtheria, Pertussis, Tetanus Vaccination: No Review of Systems - Review of Systems Constitutional: Fever, Malaise EENT: denies: Eye discharge, Ear pain, Throat pain Cardiovascular: Chest pain - with coughing Respiratory: Cough, Short of breath, Wheezing Gastrointestinal: Nausea. denies: Abdominal pain, Vomiting Genitourinary: Flank pain. denies: Dysuria Female Genitourinary: No symptoms reported Musculoskeletal: Back pain, Muscle pain Skin: denies: Rash Hematologic/Lymphatic: denies: Easy bruising Neurological/Psychological: Headaches -: Yes All other systems reviewed and negative Physical Exam - Vital signs Vitals: Temp Pulse Resp BP Pulse Ox 99.4 F 127 H 28 H 143/108 H 95 11/12/17 11:34 11/12/17 11:34 11/12/17 11:34 11/12/17 11:34 11/12/17 11:34 - Notes Notes: PHYSICAL EXAMINATION: GENERAL: Well-appearing, well-nourished and in no acute distress. HEAD: Atraumatic, normocephalic. EYES: Pupils equal round and reactive to light, extraocular movements intact, conjunctiva are normal. ENT: Nares patent, oropharynx clear without exudates. Moist mucous membranes. NECK: Normal range of motion, supple without lymphadenopathy LUNGS: Diffuse wheezing, coarse breath sounds bilaterally. No tachypnea, hypoxia, accessory muscle use. Patient is able to speak in full sentences. HEART: Regular rate and rhythm without murmurs ABDOMEN: Soft, nontender, nondistended abdomen. No guarding, no rebound. No masses appreciated. Female : deferred Musculoskeletal: Normal range of motion, no pitting or edema. No cyanosis. NEUROLOGICAL: Cranial nerves grossly intact. Normal speech, normal gait. Normal sensory, motor exams PSYCH: Normal mood, normal affect. SKIN: Warm, Dry, normal turgor, no rashes or lesions noted. Course - Re-evaluation Re-evalutation: Laboratory 11/12/17 11/12/17 12:45 12:45 WBC 8.5 RBC 4.59 Hgb 13.0 Hct 38.3 MCV 83 MCH 28.3 MCHC 33.9 RDW 15.4 H Plt Count 275 Seg Neutrophils % 72.5 Lymphocytes % 15.2 Monocytes % 7.5 Eosinophils % 4.4 Basophils % 0.4 Absolute Neutrophils 6.2 Absolute Lymphocytes 1.3 Absolute Monocytes 0.6 Absolute Eosinophils 0.4 Absolute Basophils 0.0 Sodium 139.6 Potassium 3.7 Chloride 106 Carbon Dioxide 22 Anion Gap 12 BUN 7 Creatinine 0.69 Est GFR ( Amer) > 60 Est GFR (Non-Af Amer) > 60 Glucose 133 H Calcium 9.4 Total Bilirubin 0.5 Direct Bilirubin 0.3 Neonat Total Bilirubin Not Reportable Neonat Direct Bilirubin Not Reportable Neonat Indirect Bili Not Reportable AST 25 ALT 30 Alkaline Phosphatase 75 Total Protein 7.2 Albumin 3.9 Chest X-Ray 11/12/17 12:29 IMPRESSION: NO ACUTE RADIOGRAPHIC FINDING IN THE CHEST. 11/12/17 15:10 27-year-old female with diabetes, lupus, asthma, hypertension presents with complaint cough, myalgias, shortness of breath and bilateral flank pain with coughing. Patient states that cough started 4 days prior to arrival. She describes it as persistent, productive with green sputum. Patient also states that she has had a temperature of 100.1 at home. She has tried Tylenol and albuterol without relief. She denies any sick contacts or recent hospitalizations. Patient is not currently on any medications for lupus. Vital signs reviewed upon arrival. Patient is tachycardic, hypertensive but afebrile. She does not appear toxic or dehydrated. She is in no acute distress. Patient received IV fluids, Tylenol, doxycycline, prednisone, Benadryl and Reglan during her ED course. 11/12/17 15:10 11/12/17 15:30 Patient reevaluated and reports improvement of her headache, nausea. Her blood pressure remains markedly elevated and when questioned patient states that she has not been able to keep down her metoprolol over the last few days because of vomiting. Patient was administered her home dose of metoprolol and was discharged home in stable condition. Patient provided the opportunity to ask questions, and express concerns. Discharge instructions discussed. Patient is agreeable with discharge home. Return indications explained and discussed with the patient who displays understanding. Patient encouraged to return to the emergency department immediately with any concerns. - Vital Signs Vital signs: Temp Pulse Resp BP Pulse Ox 99.4 F 108 H 20 155/108 H 96 11/12/17 15:21 11/12/17 15:21 11/12/17 15:21 11/12/17 15:21 11/12/17 15:21 - Laboratory Result Diagrams: 11/12/17 12:45 11/12/17 12:45 Laboratory results interpreted by me: 11/12/17 11/12/17 12:45 12:45 RDW 15.4 H Glucose 133 H - Diagnostic Test Radiology reviewed: Image reviewed, Reports reviewed Discharge - Discharge Clinical Impression: Cough, Wheezing CAP (community acquired pneumonia) Qualifiers: Laterality: unspecified laterality Qualified Code(s): J18.9 - Pneumonia, unspecified organism Fever Qualifiers: Fever type: unspecified Qualified Code(s): R50.9 - Fever, unspecified Condition: Good Disposition: HOME, SELF-CARE Instructions: Fever ([facility]), Pneumonia ([facility]), Viral Syndrome ([facility]) Additional Instructions: Follow up with your physician tomorrow for further care or return to the ED IMMEDIATELY if symptoms worsen or new concerns occur. If you cannot afford to follow up with your primary care physician a list of low cost clinics have been provided at the end of your discharge papers as well. Prescriptions: Benzonatate [Tessalon Perles 100 mg Capsule] 200 mg PO Q8HP PRN #20 capsule PRN Reason: Doxycycline Hyclate 100 mg PO BID #14 capsule Metoclopramide HCl [Reglan 10 mg Tablet] 1 - 2 tab PO ASDIR PRN #10 tablet PRN Reason: Ondansetron [Zofran Odt 4 mg Tablet] 1 - 2 tab PO Q4H PRN #15 tab.rapdis PRN Reason: For Nausea/Vomiting Prednisone 60 mg PO DAILY #15 tablet Forms: Elevated Blood Pressure, Return to Work
[2017-11-12] MEDS ORDERED: DOXYCYCLINE HYCLATE 100 MG TABLET PO ONE (15:10)
[2017-11-12 15:23] VITALS: BP 155/108
[2017-11-12] MEDS ORDERED: METOPROLOL SUCCINATE 50 MG TAB.SR.24H PO ONE (15:30)
== END 2017-11-12 15:46 | disposition home or self-care (01) ==
LOC: ER 11:25
DX: J18.9 Pneumonia, unspecified organism (principal); R05 Cough; J45.909 Unspecified asthma, uncomplicated; R50.9 Fever, unspecified; M79.1 Myalgia; R06.02 Shortness of breath; R10.9 Unspecified abdominal pain; R07.9 Chest pain, unspecified; R11.0 Nausea; M54.9 Dorsalgia, unspecified; R51 Headache; E11.9 Type 2 diabetes mellitus without complications; I10 Essential (primary) hypertension
CPT/HCPCS: 94640; 99284; 96360; 36415; 87040; 85025; 80053; 71046; J3490 ×4; J7512; J7030; J7620

== ENCOUNTER 2018-02-12 03:49 | Emergency (ER) | payer MEDICAID ==
[2018-02-12 03:56] VITALS: BP 138/95
--- NOTE | 2018-02-12 04:47 | ER Document Report ---
HPI - HPI Pain Level: 5 Notes: Patient is a 28-year-old female with history of hypertension diabetes as well as being approximately 21 weeks who presents to the ED complaining of a laceration to the left labial area when she was waxing. Patient states that she has pain associated and scant bleeding. Patient states that the pain does not radiate otherwise. She is otherwise been feeling well. She is eating and drinking without any difficulties. She has not had any other vaginal discharge , odor, or bleeding. Denies any headache, fever, URI, sore throat, chest pain, palpitations, syncope, cough, shortness of breath, wheeze, dyspnea, abdominal pain, nausea/vomiting/diarrhea, urinary retention, dysuria, hematuria, or rash. - ROS Systems Reviewed and Negative: Yes All other systems reviewed and negative - REPRODUCTIVE LMP: 09-18-17 Reproductive: REPORTS: : Past Medical History - Social History Smoking Status: Never Smoker Family History: Arthritis, CAD, CVA, DM, Hyperlipidemia, Hypertension - with secondary renal failure, Thyroid Disfunction - Past Medical History Cardiac Medical History: Reports: Hx Hypertension Pulmonary Medical History: Reports: Hx Asthma Neurological Medical History: Reports: Hx Seizures Endocrine Medical History: Reports: Hx Diabetes Mellitus Type 2 Renal/ Medical History: Reports: Hx Ectopic . Denies: Hx Peritoneal Dialysis Skin Medical History: Reports Hx MRSA Psychiatric Medical History: Reports: Hx Bipolar Disorder Infectious Medical History: Reports: Hx MRSA Past Surgical History: Reports: Hx Gynecologic Surgery - Ectopic, left fallopian tube removed - Immunizations Hx Diphtheria, Pertussis, Tetanus Vaccination: No Vertical Provider Document - CONSTITUTIONAL Agree With Documented VS: Yes Notes: PHYSICAL EXAMINATION: GENERAL: Well-appearing, well-nourished and in no acute distress. LUNGS: Breath sounds clear to auscultation bilaterally and equal. No wheezes rales or rhonchi. HEART: Regular rate and rhythm without murmurs ABDOMEN: Soft, nontender, nondistended abdomen. No guarding, no rebound. No masses appreciated. Normal bowel sounds present. CVA tenderness negative bilaterally. Female : No inguinal adenopathy. External genitalia without erythema, lesions , or masses. external Vaginal mucosa pink. there is a small superficial narrow skin tear to the area b/w the labia majora and minora on the left side approx 2cm long. Musculoskeletal: FROM to passive/active. Strength 5+/5. Extremities: No cyanosis/clubbing/edema b/l. Peripheral pulses 2+. Capillary refill less than 3 seconds. NEUROLOGICAL: normal speech, normal gait. PSYCH: Normal mood, normal affect. SKIN: see above. - INFECTION CONTROL TRAVEL OUTSIDE OF THE [place] IN LAST 30 DAYS: No Course - Re-evaluation Re-evalutation: 02/12/18 05:42 Dr. Perkins also eval'd the patient. Patient is an afebrile, well-hydrated, 28-year-old female who presents to the ED with a skin tear between the labia majora and labia minora. Vitals are acceptable without any significant tachycardia, tachypnea, or hypoxia. PE is otherwise unremarkable otherwise. No labs or imaging warranted at this time based on H&P. No laceration repair warranted at this time based on evaluation. Xylocaine given today. Recheck with your PCM in 3-5 days. Consider consult with [facility] RECRU[facility]. Return to the ED with any worsening/concerning symptoms otherwise as reviewed in discharge. Patient is in agreement. - Vital Signs Vital signs: Temp Pulse Resp BP Pulse Ox 98.2 F 103 H 18 138/95 H 98 02/12/18 03:55 02/12/18 03:55 02/12/18 03:55 02/12/18 03:55 02/12/18 03:55 Discharge - Discharge Clinical Impression: Skin tear Condition: Stable Disposition: HOME, SELF-CARE Additional Instructions: Keep the skin clean Wash with soap and water Tylenol/ibuprofen if needed Take medication as directed Monitor for any worsening symptoms Recheck with your PCM in 2-3 days Consider consult with JUN[facility] RECRUITER for ongoing/worsening symptoms Return to the ED with any worsening symptoms and/or development of fever, headache, chest pain, palpitations, syncope, shortness of breath, trouble breathing, abdominal pain, n/v/d, abscess, purulent discharge, red streaks, worsening swelling, or other worsening symptoms that are concerning to you. Forms: Elevated Blood Pressure Referrals: [facility] [Provider Group] - Follow up as needed
[2018-02-12] MEDS ORDERED: LIDOCAINE 2% JELLY 30 ML TUBE TOP ONE (05:44)
[2018-02-12] MEDS ORDERED: LIDOCAINE 2% JELLY 30 ML TUBE ONE (05:52)
== END 2018-02-12 06:09 | disposition home or self-care (01) ==
LOC: ER 03:49
DX: O9A.212 Injury, poisoning and certain other consequences of external causes complicating pregnancy, second trimester (principal); S31.41XA Laceration without foreign body of vagina and vulva, initial encounter; X58.XXXA Exposure to other specified factors, initial encounter; Y93.E8 Activity, other personal hygiene; O16.2 Unspecified maternal hypertension, second trimester; O24.112 Pre-existing type 2 diabetes mellitus, in pregnancy, second trimester; E11.9 Type 2 diabetes mellitus without complications; Z3A.20 20 weeks gestation of pregnancy; Z86.14 Personal history of Methicillin resistant Staphylococcus aureus infection
CPT/HCPCS: 99283; J3490

== ENCOUNTER 2018-03-07 19:47 | Emergency (ER) | payer MEDICAID ==
--- NOTE | 2018-03-07 20:25 | ER Document Report ---
ED Medical Screen (RME) - General Chief Complaint: Vaginal Bleeding Stated Complaint: VAGINAL BLEEDING Time Seen by Provider: 03/07/18 20:24 TRAVEL OUTSIDE OF THE [place] IN LAST 30 DAYS: No - HPI Notes: 03/07/18 20:24 coming in for vaginal bleeding 03/07/18 20:24 Approximately 10 weeks - Related Data Allergies/Adverse Reactions: mushroom Allergy (Verified 11/12/17 11:26) peanut [Peanut] Allergy (Verified 11/12/17 11:26) Past Medical History - Past Medical History Cardiac Medical History: Reports: Hx Hypertension Pulmonary Medical History: Reports: Hx Asthma Neurological Medical History: Reports: Hx Seizures Endocrine Medical History: Reports: Hx Diabetes Mellitus Type 2 Renal/ Medical History: Reports: Hx Ectopic . Denies: Hx Peritoneal Dialysis Skin Medical History: Reports Hx MRSA Psychiatric Medical History: Reports: Hx Bipolar Disorder Infectious Medical History: Reports: Hx MRSA Past Surgical History: Reports: Hx Gynecologic Surgery - Ectopic, left fallopian tube removed - Immunizations Hx Diphtheria, Pertussis, Tetanus Vaccination: No Review of Systems - Review of Systems Female Genitourinary: Vaginal bleeding Physical Exam - Vital signs Vitals: Temp Pulse Resp BP Pulse Ox 99.2 F 102 H 16 140/90 H 100 03/07/18 20:01 03/07/18 20:01 03/07/18 20:01 03/07/18 20:01 03/07/18 20:01 - Respiratory Respiratory status: No respiratory distress Chest status: Nontender Breath sounds: Normal Chest palpation: Normal - Cardiovascular Rhythm: Regular Heart sounds: Normal auscultation Course - Vital Signs Vital signs: Temp Pulse Resp BP Pulse Ox 99.2 F 102 H 16 140/90 H 100 03/07/18 20:01 03/07/18 20:01 03/07/18 20:01 03/07/18 20:01 03/07/18 20:01
[2018-03-07 20:44] LABS: ABSOLUTE BASOPHILS # (AUTO) 0.1 10^3/uL (0.0-0.2); ABSOLUTE EOSINOPHILS # (AUTO) 0.3 10^3/uL (0.0-0.6); ABSOLUTE LYMPHOCYTES (AUTO) 2.3 10^3/uL (0.5-4.7); ABSOLUTE MONOCYTES (AUTO) 0.6 10^3/uL (0.1-1.4); ABSOLUTE NEUT (AUTO) 4.4 10^3/uL (1.7-8.2); BASOPHILS % (AUTO) 0.7 % (0-2); EOSINOPHILS % (AUTO) 3.6 % (0-6); HEMATOCRIT 38.2 % (36.0-47.0); HEMOGLOBIN 13.1 g/dL (12.0-15.5); LYMPHOCYTES % (AUTO) 30.3 % (13-45); MEAN CORPUSCULAR HEMOGLOBIN 29.1 pg (27.0-33.4); MEAN CORPUSCULAR HGB CONC 34.4 g/dL (32.0-36.0); MEAN CORPUSCULAR VOLUME 85 fl (80-97); MONOCYTES % (AUTO) 7.9 % (3-13); PLATELET COUNT 253 10^3/uL (150-450); RED BLOOD COUNT 4.52 10^6/uL (3.72-5.28); RED CELL DISTRIBUTION WIDTH 14.9 % (11.5-14.0); SEGMENTED NEUTROPHILS % (AUTO) 57.5 % (42-78); TOTAL CELLS COUNTED % (AUTO) 100 %; WHITE BLOOD COUNT 7.6 10^3/uL (4.0-10.5)
[2018-03-07 21:06] LABS: ANION GAP 10 (5-19); BLOOD UREA NITROGEN 9 mg/dL (7-20); CALCIUM 9.6 mg/dL (8.4-10.2); CARBON DIOXIDE 23 mmol/L (22-30); CHLORIDE 104 mmol/L (98-107); GLUCOSE 100 mg/dL (75-110); POTASSIUM 3.9 mmol/L (3.6-5.0); SODIUM 136.8 mmol/L (137-145)
--- NOTE | 2018-03-07 21:31 | ER Document Report ---
ED General - General Chief Complaint: Vaginal Bleeding Stated Complaint: VAGINAL BLEEDING Time Seen by Provider: 03/07/18 20:24 Notes: Patient is a 28-year-old female at approximately 11 weeks by LMP, has a confirmed intrauterine on outpatient ultrasound who presents with heavy vaginal bleeding since last night. Having gushes of blood and then intermittent periods where she is not bleeding at all. Denies a history of similar symptoms during this or during her previous pregnancies. She has not seen her C[facility]TER OPERATOR [facility]ICK regarding today's concerns. She denies associated abdominal pain. Nothing improves or worsens the symptoms. No obvious trigger for the bleeding. No fever or constitutional symptoms. No lightheadedness or syncope. TRAVEL OUTSIDE OF THE [place] IN LAST 30 DAYS: No - Related Data Allergies/Adverse Reactions: mushroom Allergy (Verified 11/12/17 11:26) peanut [Peanut] Allergy (Verified 11/12/17 11:26) Past Medical History - General Information source: Patient - Social History Smoking Status: Current Some Day Smoker Chew tobacco use (# tins/day): No Frequency of alcohol use: None Drug Abuse: None Lives with: Spouse/Significant other Family History: Arthritis, CAD, CVA, DM, Hyperlipidemia, Hypertension - with secondary renal failure, Thyroid Disfunction Patient has suicidal ideation: No Patient has homicidal ideation: No - Past Medical History Cardiac Medical History: Reports: Hx Hypertension Pulmonary Medical History: Reports: Hx Asthma Neurological Medical History: Reports: Hx Seizures Endocrine Medical History: Reports: Hx Diabetes Mellitus Type 2 Renal/ Medical History: Reports: Hx Ectopic . Denies: Hx Peritoneal Dialysis Skin Medical History: Reports Hx MRSA Psychiatric Medical History: Reports: Hx Bipolar Disorder Infectious Medical History: Reports: Hx MRSA Past Surgical History: Reports: Hx Gynecologic Surgery - Ectopic, left fallopian tube removed - Immunizations Hx Diphtheria, Pertussis, Tetanus Vaccination: No Review of Systems - Review of Systems Notes: Constitutional: Negative for fever. HENT: Negative for sore throat. Eyes: Negative for visual changes. Cardiovascular: Negative for chest pain. Respiratory: Negative for shortness of breath. Gastrointestinal: Negative for abdominal pain, vomiting or diarrhea. Genitourinary: Positive for vaginal bleeding Musculoskeletal: Negative for back pain. Skin: Negative for rash. Neurological: Negative for headaches, weakness or numbness. 10 point ROS negative except as marked above and in HPI. Physical Exam - Vital signs Vitals: Temp Pulse Resp BP Pulse Ox 99.2 F 102 H 16 140/90 H 100 03/07/18 20:01 03/07/18 20:01 03/07/18 20:01 03/07/18 20:01 03/07/18 20:01 Interpretation: Tachycardic - Resolved at the time of my assessment Notes: PHYSICAL EXAMINATION: GENERAL: Well-appearing, well-nourished and in no acute distress. HEAD: Atraumatic, normocephalic. EYES: Pupils equal round and reactive to light, extraocular movements intact, sclera anicteric, conjunctiva are normal. ENT: nares patent, oropharynx clear without exudates. Moist mucous membranes. NECK: Normal range of motion, supple without lymphadenopathy LUNGS: Breath sounds clear to auscultation bilaterally and equal. No wheezes rales or rhonchi. HEART: Regular rate and rhythm without murmurs ABDOMEN: Soft, nontender, normoactive bowel sounds. No guarding, no rebound. No masses appreciated. EXTREMITIES: Normal range of motion, no pitting or edema. No cyanosis. NEUROLOGICAL: No focal neurological deficits. Moves all extremities spontaneously and on command. PSYCH: Normal mood, normal affect. SKIN: Warm, Dry, normal turgor, no rashes or lesions noted. Course - Re-evaluation Re-evalutation: 03/07/18 21:30 Patient presents with a mild amount of vaginal bleeding in the setting of a first trimester . Ultrasound does demonstrate a viable intrauterine with active heart rate. Patient does have a large subchorionic hemorrhage and has been notified of this finding. No active bleeding at time of presentation. She is Rh positive. Patient's abdominal exam is otherwise benign without any focal tenderness. I do not suspect an acute appendicitis, pyelonephritis, cystitis, or bowel obstruction. At this time will discharge with return precautions and follow-up recommendations. Verbal discharge instructions given a the bedside and opportunity for questions given. Medication warnings reviewed. Patient is in agreement with this plan and has verbalized understanding of return precautions and the need for primary care follow-up in the next 24-72 hours. - Vital Signs Vital signs: Temp Pulse Resp BP Pulse Ox 98.4 F 87 18 129/90 H 99 03/07/18 21:39 03/07/18 21:39 03/07/18 21:39 03/07/18 21:39 03/07/18 21:39 - Laboratory Result Diagrams: 03/07/18 20:35 03/07/18 20:35 Laboratory results interpreted by me: 03/07/18 03/07/18 20:35 20:35 RDW 14.9 H Sodium 136.8 L Beta HCG, Quant 069642.00 H - Diagnostic Test Radiology reviewed: Reports reviewed Discharge - Discharge Clinical Impression: First trimester Hemorrhage during Qualifiers: Trimester: first trimester Qualified Code(s): O20.9 - Hemorrhage in early , unspecified Subchorionic hemorrhage Qualifiers: Fetus number: single or unspecified fetus Trimester: first trimester Qualified Code(s): O41.8X10 - Other specified disorders of amniotic fluid and membranes, first trimester, not applicable or unspecified; O46.8X1 - Other antepartum hemorrhage, first trimester; O46.8X1 - Other antepartum hemorrhage, first trimester Condition: Good Disposition: HOME, SELF-CARE Additional Instructions: Your ultrasound today shows a living intrauterine . Please follow closely with your primary care CUTTER OPERATOR [facility]. Please return if you develop severe abdominal pain, bleeding that goes through more than 2 pads for more than 2 hours, pass out, or have any other symptoms that are concerning to you. Please follow-up closely with your OBGYN regarding todays visit.
[2018-03-07 21:49] VITALS: BP 129/90
--- NOTE | 2018-03-07 22:17 | RADIOLOGY REPORT (SQ) ---
EXAM DESCRIPTION: CLINICAL HISTORY: 28 years Female 10wk +bleeding COMPARISON: None. TECHNIQUE: Transvaginal duplex imaging performed to evaluate the pelvis. FINDINGS: Uterus measures 12.2 x 9.3 x 7.7 cm. Cervix is closed and measures 4.5 cm. Right ovary measures 3.7 x 2.3 x 2.1 cm with normal flow. Left ovary measures 2.6 x 1.7 x 2.2 cm with normal flow. No free fluid is noted. There is an intrauterine gestational sac. [place]-rump length measures 4.1 cm. Heart rate 155 bpm. Estimated age 11 weeks. Amniotic fluid appears subjectively normal. There is a complex area along the anterior aspect of the gestational sac which may reflect area of subchronic hemorrhage. Recommend follow-up imaging. No blood flow is noted within this region. IMPRESSION: Living IUP corresponding to 11 weeks Complex area adjacent to the gestational sac without blood flow which may reflect subchorionic hemorrhage. Recommend close interval follow-up
== END 2018-03-07 21:42 | disposition home or self-care (01) ==
LOC: ER 19:47
DX: O46.8X1 Other antepartum hemorrhage, first trimester (principal); F17.200 Nicotine dependence, unspecified, uncomplicated; Z3A.11 11 weeks gestation of pregnancy
CPT/HCPCS: 36415; 76817; 80048; 84702; 85025; 93976; 99284

== ENCOUNTER 2018-05-14 22:22 | Emergency (ER) | payer MEDICAID ==
--- NOTE | 2018-05-15 01:49 | ER Document Report ---
ED Extremity Problem, Upper - General Chief Complaint: Arm Pain Stated Complaint: RIGHT ARM SWELLING Time Seen by Provider: 05/15/18 00:57 Notes: 28-year-old (20w 3d) female with NIDDM, hypertension, lupus nephritis, epilepsy, history of preeclampsia presents to the emergency department for chief complaint of swelling in her right arm and bruising after getting the 17 P shot on 04/2018. Patient states she received a shot weekly starting at 20 weeks to prevent labor, her first shot was last and she noticed immedi ately that there was redness and burning at the site. On 05/11 she noticed her arm started getting warm and swollen. She called her primary doctor today who told her to come to the emergency department for concern for infection. Patient does have a history of MRSA infection. She states when she raises her arm above her head her arm goes numb, this is not new. She is forced to sleep on her left side. She denies fevers, chills, shortness of breath, chest pain, nausea, vomiting. She has no other complaints at this time. TRAVEL OUTSIDE OF THE [place] IN LAST 30 DAYS: No - Related Data Allergies/Adverse Reactions: mushroom Allergy (Verified 11/12/17 11:26) peanut [Peanut] Allergy (Verified 11/12/17 11:26) Past Medical History - General Information source: Patient - Social History Smoking Status: Never Smoker Family History: Arthritis, CAD, CVA, DM, Hyperlipidemia, Hypertension - with secondary renal failure, Thyroid Disfunction - Past Medical History Cardiac Medical History: Reports: Hx Hypertension Pulmonary Medical History: Reports: Hx Asthma Neurological Medical History: Reports: Hx Seizures Endocrine Medical History: Reports: Hx Diabetes Mellitus Type 2 Renal/ Medical History: Reports: Hx Ectopic . Denies: Hx Peritoneal Dialysis Skin Medical History: Reports Hx MRSA Psychiatric Medical History: Reports: Hx Bipolar Disorder Infectious Medical History: Reports: Hx MRSA Past Surgical History: Reports: Hx Gynecologic Surgery - Ectopic, left fallopian tube removed - Immunizations Hx Diphtheria, Pertussis, Tetanus Vaccination: No Review of Systems - Review of Systems Constitutional: See HPI EENT: No symptoms reported Cardiovascular: See HPI Respiratory: See HPI Gastrointestinal: See HPI Genitourinary: No symptoms reported Female Genitourinary: No symptoms reported Musculoskeletal: No symptoms reported Skin: No symptoms reported Hematologic/Lymphatic: No symptoms reported Neurological/Psychological: No symptoms reported Physical Exam - Vital signs Vitals: Temp Pulse Resp BP Pulse Ox 99.0 F 103 H 18 137/86 H 96 05/14/18 22:39 05/14/18 22:39 05/14/18 22:39 05/14/18 22:39 05/14/18 22:39 - Notes Notes: Reviewed vital signs and nursing note as charted by RN. CONSTITUTIONAL: Well-appearing, well-nourished, acting appropriately for age HEAD: Normocephalic, atraumatic, no swelling EYES: PERRL, Conjunctivae clear, no drainage, EOMI, no scleral icterus ENT: External ears without lesions, External auditory canal is patent, airway patent, mucous membranes pink and moist NECK: Supple, no cervical lymphadenopathy, no masses CARD: Regular rate and rhythm, no murmurs, no rubs, no gallops, capillary refill < 2 seconds, symmetric pulses RESP: The lungs are clear to auscultation bilaterally, no wheezing, no rales, no rhonchi. Respiratory rate and effort are normal, normal chest excursion. No respiratory distress, no retractions, no stridor, no nasal flaring, no accessory muscle use. ABD/GI: Gravid uterus noted at the level just below the umbilicus , normal bowel sounds, soft, non-tender, no rebound, no guarding, no palpable organomegaly EXT: Normal ROM in all joints, acute tenderness to light palpation right upper extremity area of tricep, warm to touch, area of induration noted. No area of fluctuance felt. Mild swelling compared to left upper extremity SKIN: Normal color for age and race, warm, dry, good turgor, no acute lesions noted NEURO: No facial asymmetry, moves all extremities equally, motor and sensory function intact Course - Re-evaluation Re-evalutation: 05/15/18 01:54 28-year-old female presents to the emergency department with right upper extremity swelling after receiving the 17 P shot last week. The first ellen e she received a shot, she is was getting it for prevention of labor. On physical exam right upper extremity in the triceps area acutely tender to light palpation, area of induration noted, some edema, warm to touch compared to left side, unable to express any discharge. Formal ultrasound of proximal right upper extremity ordered with some basic lab work. 05/15/18 05:09 Upper extremity ultrasound showed evidence of fluid collection possibly consistent with an abscess. Discussed patient with Dr. Noman Santizo, he agreed to see patient and I&D abscess. Plan is to assist Dr. Santizo with procedure and prescribe clindamycin 300 mg every 6 hours for 1 week because it is the only safe medication for MRSA coverage in 05/15/18 06:06 - Vital Signs Vital signs: Temp Pulse Resp BP Pulse Ox 98.8 F 99 15 134/93 H 99 05/15/18 05:24 05/15/18 05:24 05/15/18 05:24 05/15/18 05:24 05/15/18 05:24 - Laboratory Result Diagrams: 05/15/18 02:11 05/15/18 02:11 Laboratory results interpreted by me: 05/15/18 05/15/18 02:11 02:11 RBC 3.64 L Hgb 11.1 L Hct 31.5 L Sodium 136.6 L Chloride 108 H Carbon Dioxide 21 L Creatinine 0.51 L Discharge - Discharge Clinical Impression: Abscess Condition: Good Disposition: HOME, SELF-CARE Instructions: Abscess ([facility]) Additional Instructions: Abscess You have an abscess (boil). This a pus-forming infection, usually due to staph. Some boils may be left to drain on their own, but most require lancing. From the time the tender lump first appears, it may be three or four days before the abscess is ready to joe. Local heat and rest help at this stage of treatment. An antibiotic may prevent spread of the infection. Once the abscess is opened, packing may be placed into it. This is done so pus is not sealed inside by premature closure of the cavity. The packing will be removed at your follow-up visit or you may be advised to remove it yourself at home. Sometimes this packing must be replaced a few times during healing. The wound will heal with surprisingly little scar. Depending on the size and location of an abscess, healing can take one to four weeks. You may shower and wash the area around the incision site two or three times a day. Antibiotics were prescribed, and they are safe for . You will have to take them 4 times per day. If you develop fever, chilling, worsening pain, or increasing swelling in the area, call the doctor or return immediately. Prescriptions: Clindamycin HCl 300 mg PO ASDIR PRN #28 capsule PRN Reason: Referrals: RAJI LEONARDO [facility] [Primary Care Provider] - Follow up as needed
[2018-05-15 02:23] LABS: ABSOLUTE BASOPHILS # (AUTO) 0.1 10^3/uL (0.0-0.2); ABSOLUTE EOSINOPHILS # (AUTO) 0.3 10^3/uL (0.0-0.6); ABSOLUTE LYMPHOCYTES (AUTO) 2.2 10^3/uL (0.5-4.7); ABSOLUTE MONOCYTES (AUTO) 0.5 10^3/uL (0.1-1.4); ABSOLUTE NEUT (AUTO) 5.4 10^3/uL (1.7-8.2); BASOPHILS % (AUTO) 0.6 % (0-2); EOSINOPHILS % (AUTO) 3.7 % (0-6); HEMATOCRIT 31.5 % (36.0-47.0); HEMOGLOBIN 11.1 g/dL (12.0-15.5); LYMPHOCYTES % (AUTO) 25.7 % (13-45); MEAN CORPUSCULAR HEMOGLOBIN 30.4 pg (27.0-33.4); MEAN CORPUSCULAR VOLUME 87 fl (80-97); MONOCYTES % (AUTO) 6.4 % (3-13); PLATELET COUNT 219 10^3/uL (150-450); RED BLOOD COUNT 3.64 10^6/uL (3.72-5.28); RED CELL DISTRIBUTION WIDTH 13.6 % (11.5-14.0); SEGMENTED NEUTROPHILS % (AUTO) 63.6 % (42-78); TOTAL CELLS COUNTED % (AUTO) 100 %; WHITE BLOOD COUNT 8.4 10^3/uL (4.0-10.5)
[2018-05-15 02:37] LABS: ANION GAP 8 (5-19); BLOOD UREA NITROGEN 9 mg/dL (7-20); CALCIUM 9.5 mg/dL (8.4-10.2); CARBON DIOXIDE 21 mmol/L (22-30); CHLORIDE 108 mmol/L (98-107); GLUCOSE 84 mg/dL (75-110); POTASSIUM 3.8 mmol/L (3.6-5.0); SODIUM 136.6 mmol/L (137-145)
--- NOTE | 2018-05-15 02:54 | RADIOLOGY REPORT (SQ) ---
EXAM DESCRIPTION: US EXTREMITY MUSCULOSKELETAL LIMITED COMPLETED DATE/TME: 05/15/2018 01:48 CLINICAL HISTORY: 28 years, Female, ?abscess proximal right upper extremity COMPARISON: None. TECHNIQUE: Transverse and longitudinal sonographic images of the right upper extremity in the region of the patient's clinical/palpable abnormality LIMITATIONS: None. FINDINGS: Diffuse subcutaneous edema. More focal area of complex edema and fluid measuring 1.9 x 1.5 x 2.2 cm could reflect developing abscess. No solid masses. IMPRESSION: A more focal complex fluid collection of the right upper extremity could reflect developing abscess. Diffuse subcutaneous edema copyright 2010 [employer]- All Rights Reserved
[2018-05-15] MEDS ORDERED: LIDOCAINE 1%/EPINEPHRINE INJ 20 ML VIAL INJ ONE (04:22)
[2018-05-15 05:28] VITALS: BP 134/93
--- NOTE | 2018-05-15 06:19 | ER Document Report ---
Doctor's Note Notes: I personally and independently obtained patient history and examined the patient in conjunction with the APC and agree with the assessment, treatment plan and disposition of the patient as recorded by the APC, and have reviewed the APC's note. HISTORY OF PRESENT ILLNESS: Patient is a 28-year-old female that is currently that presents to the emergency department for chief complaint of right arm pain, in the office, has gotten progressively worse since that time it was approximately 7 days ago. ROS: Constitutional: Negative for fever. Cardiovascular: Negative for chest pain. Respiratory: Negative for shortness of breath. Gastrointestinal: Negative for vomiting or abdominal pain Musculoskeletal: Positive for arm pain Skin: Negative for rash. Neurological: Negative for weakness or numbness. Other than noted above, the 12 point review of systems was reviewed with the patient and were negative, all pertinent findings are included in the HPI. PHYSICAL EXAMINATION: Vital signs reviewed, nursing noted reviewed. GENERAL: Well-appearing, well-nourished and in no acute distress. HEAD: Atraumatic, normocephalic. EYES: Eyes appear normal, conjunctiva are normal. ENT: nares patent, oropharynx clear without exudates. Moist mucous membranes. NECK: Normal range of motion, supple without lymphadenopathy LUNGS: Breath sounds clear to auscultation bilaterally and equal. No wheezes rales or rhonchi. HEART: Regular rate and rhythm without murmurs EXTREMITIES: Tenderness with palpation and induration noted in the posterior aspect of the patient's right upper extremity, near the tricep, rest the patient's extremity exam is grossly unremarkable, and nontender, good range of motion, no pitting or edema. NEUROLOGICAL: No focal neurological deficits. Moves all extremities spontaneously Motor and sensory grossly intact on exam. PSYCH: Normal mood, normal affect. SKIN: Warm, Dry, normal turgor, no rashes or lesions noted on exposed MEDICAL DECISION MAKING: Patient's right upper extremity was visualized under ultrasound, bedside, and demonstrated a hypoechoic area, with what appeared to be septations, and some cobblestoning. PROCEDURE: INCISION AND DRAINAGE: Area of induration measured approximately 4 cm x 4 cm, with mild fluctuance. Skin was prepped in usual sterile fashion, with Betadine, and draped, then using an 11 blade scalpel, the area was visualized under ultrasound, and incised with the scalpel, there was serosanguineous drainage, that came out of the site, this was then reevaluated under ultrasound, there is another pocket, just medial to the initial incision, this was aspirated with an 18-gauge needle, there was approximately 2mL of purulent discharge that was obtained. The patient's wound did open up due to her obese arm, and subcutaneous fat, and therefore placed 1 simple interrupted 4-0 suture, to help approximate the wound, but still allow for drainage. Patient be discharged on antibiotics, clindamycin, as she is , 4 times daily, for 7 days, she will follow-up to have her sutures removed. States she will come back to the ED for this. Patient agreeable plan of care and discharged home. Please review detail APC documentation. *Note is created using voice recognition software and may contain spelling, syntax or grammatical errors.
== END 2018-05-15 05:28 | disposition home or self-care (01) ==
LOC: ER 22:22
DX: O99.712 Diseases of the skin and subcutaneous tissue complicating pregnancy, second trimester (principal); L02.91 Cutaneous abscess, unspecified; O26.892 Other specified pregnancy related conditions, second trimester; O24.112 Pre-existing type 2 diabetes mellitus, in pregnancy, second trimester; E11.9 Type 2 diabetes mellitus without complications; O99.512 Diseases of the respiratory system complicating pregnancy, second trimester; J45.909 Unspecified asthma, uncomplicated; O16.2 Unspecified maternal hypertension, second trimester; Z3A.20 20 weeks gestation of pregnancy; Z86.14 Personal history of Methicillin resistant Staphylococcus aureus infection
CPT/HCPCS: 99284; 36415; 85025; 80048; 76882; 10061; J3490

== ENCOUNTER 2018-07-26 23:51 | Outpatient (CLI) | payer MEDICAID ==
[2018-07-27 01:02] LABS: BACTERIA (WET MOUNT) 3+ BACTERIA SEEN; EPITHELIALS (WET MOUNT) 3+ EPITHELIALS SEEN; T.VAGINALIS (WET MOUNT) NO TRICHOMONAS SEEN; WBCS (WET MOUNT) 1+ WBCS SEEN; YEAST (WET MOUNT) NO YEAST SEEN
[2018-07-27] MEDS ORDERED: NIFEDIPINE 30 MG TAB.ER.24 PO ONE ×2 (01:12→01:30)
[2018-07-27 01:16] LABS: APPEARANCE,URINE CLOUDY; BILIRUBIN,URINE NEGATIVE (NEGATIVE); COLOR,URINE AMBER; GLUCOSE, URINE 50 mg/dL (NEGATIVE); KETONES,URINE NEGATIVE (NEGATIVE); LEUKOCYTE ESTERASE,URINE NEGATIVE (NEGATIVE); NITRITE,URINE NEGATIVE (NEGATIVE); PROTEIN,URINE >=500 mg/dL (NEGATIVE); URINE SPECIFIC GRAVITY 1.041; UROBILINOGEN,URINE NEGATIVE mg/dL (<2.0)
[2018-07-27 01:30] LABS: URINE AMPHETAMINES SCREEN NEGATIVE; URINE BARBITURATES SCREEN NEGATIVE; URINE BENZODIAZEPINES SCREEN NEGATIVE; URINE METHADONE SCREEN NEGATIVE; URINE PHENCYCLIDINE SCREEN NEGATIVE
[2018-07-27] MEDS ORDERED: RINGERS SOLUTION,LACTATED 1,000 ML IV PRN (01:30)
[2018-07-27 01:37] LABS: URINE COCAINE SCREEN UNCONFIRMED POSITIVE; URINE MARIJUANA (THC) SCREEN UNCONFIRMED POSITIVE
[2018-07-27 01:48] LABS: ABSOLUTE EOSINOPHILS # (AUTO) 0.2 10^3/uL (0.0-0.6); ABSOLUTE LYMPHOCYTES (AUTO) 1.9 10^3/uL (0.5-4.7); ABSOLUTE MONOCYTES (AUTO) 0.7 10^3/uL (0.1-1.4); ABSOLUTE NEUT (AUTO) 5.6 10^3/uL (1.7-8.2); BASOPHILS % (AUTO) 0.5 % (0-2); EOSINOPHILS % (AUTO) 2.4 % (0-6); HEMATOCRIT 30.1 % (36.0-47.0); HEMOGLOBIN 10.8 g/dL (12.0-15.5); LYMPHOCYTES % (AUTO) 22.6 % (13-45); MEAN CORPUSCULAR HEMOGLOBIN 31.1 pg (27.0-33.4); MEAN CORPUSCULAR HGB CONC 35.7 g/dL (32.0-36.0); MEAN CORPUSCULAR VOLUME 87 fl (80-97); MONOCYTES % (AUTO) 7.8 % (3-13); PLATELET COUNT 194 10^3/uL (150-450); RED BLOOD COUNT 3.46 10^6/uL (3.72-5.28); RED CELL DISTRIBUTION WIDTH 13.8 % (11.5-14.0); SEGMENTED NEUTROPHILS % (AUTO) 66.7 % (42-78); TOTAL CELLS COUNTED % (AUTO) 100 %; WHITE BLOOD COUNT 8.5 10^3/uL (4.0-10.5)
[2018-07-27 02:27] LABS: CHLAM PCR NOT DETECTED (NOT DETECT); GON PCR NOT DETECTED (NOT DETECT)
[2018-07-27 02:48] LABS: ALANINE AMINOTRANSFERASE 17 U/L (9-52); ALBUMIN 3.3 g/dL (3.5-5.0); ALKALINE PHOSPHATASE 59 U/L (38-126); ANION GAP 7 (5-19); ASPARTATE AMINO TRANSFERASE 15 U/L (14-36); BILIRUBIN,TOTAL 0.2 mg/dL (0.2-1.3); BLOOD UREA NITROGEN 9 mg/dL (7-20); CALCIUM 9.3 mg/dL (8.4-10.2); CARBON DIOXIDE 21 mmol/L (22-30); CHLORIDE 104 mmol/L (98-107); GLUCOSE 78 mg/dL (75-110); POTASSIUM 3.7 mmol/L (3.6-5.0); TOTAL PROTEIN 6.1 g/dL (6.3-8.2); URIC ACID 4.9 mg/dL (2.5-6.2)
--- NOTE | 2018-07-27 04:33 | L&D Progress Notes ---
PROGRESS NOTES Datetime Report Generated by MARIE: 07/27/2018 04:32 PROGRESS NOTE Impression Other: abdominal pain Procedures- Other: monitor Plan Other: PIH labs Vital Signs : Reviewed Vital Signs Comments: elevatd BP-CHTN Comment: Pt here today via ambulance secondary to abdominal pain. She gets PNC at [facility]. She states that she currently has CHTN, Lupus and DM. SHe has a h/o pre-eclampsia. Tonight, she is positive for cocaine. She normally takes Procardia 30 mg qd. She was given a dose while at L_D. She ranged from 160-150s/80-90s. More than likely, it is the cocaine contributing to the increase. Her PIH work up is Negative. She has baseline proteinuria. According to her records, she had a renal biopsy in 2017 and has Lupus nephritis. 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 Pt has been counseled about the cocaine use and the risks of abruption and BP elevation. Her abdominal pain has resolved. No contractions and her abdomen is soft. FETUS A FHR - Baseline: 140s Monitoring: External US Variability: Moderate 6-25bpm Accelerations: 10X10 Decelerations: None FHR Category: Category I : 31.2 SIGNATURE SIGNATURE: [id number] Signature: with User ID: [email or web address]
[2018-07-27 08:13] LABS: URINE CREATININE 811.5 mg/dL (16-327)
[2018-07-27 08:14] LABS: UR PRO/CREAT RATIO RESULT 3.6 mg/mg (0.0-0.2); URINE PROTEIN 2927.6 mg/dL (<12)
== END 2018-07-27 04:38 | disposition home or self-care (01) ==
LOC: LC 23:51
PROVIDERS: ATTEND Obstetrics & Gynecology
PROC: 4A1HXCZ Monitoring of Products of Conception, Cardiac Rate, External Approach (ICD-10-PCS; principal; 2018-07-26)
DX: O10.913 Unspecified pre-existing hypertension complicating pregnancy, third trimester (principal); O24.913 Unspecified diabetes mellitus in pregnancy, third trimester; O26.893 Other specified pregnancy related conditions, third trimester; M32.14 Glomerular disease in systemic lupus erythematosus; R10.9 Unspecified abdominal pain; O99.333 Smoking (tobacco) complicating pregnancy, third trimester; F17.210 Nicotine dependence, cigarettes, uncomplicated; O99.323 Drug use complicating pregnancy, third trimester; F12.90 Cannabis use, unspecified, uncomplicated; O09.33 Supervision of pregnancy with insufficient antenatal care, third trimester; Z3A.31 31 weeks gestation of pregnancy
CPT/HCPCS: 59899; 36415; 87210; 83615; 84156; 84550; 82570; 85025; 80053; 81001; 80307; 80353; 87491; 87591; 84112; G0480 ×3; J3490; 80349

== ENCOUNTER 2018-08-30 15:34 | Emergency (ER) | payer MEDICAID ==
--- NOTE | 2018-08-30 15:41 | ER Document Report ---
ED General - General Stated Complaint: POSSIBLE SEIZURES Time Seen by Provider: 08/30/18 15:40 Primary Care Provider: NAYE CONWAY PA-C [Primary Care Provider] - Follow up as needed Notes: Patient is a 28-year-old female with a previous ectopic, 36 weeks , who presents with EMS secondary to multiple seizures. They have provided in total 4 mg of Ativan, 10 mg of Versed, and 2 mg of magnesium. Vital signs have been stable. Airway has been intact. heart tones are yet to be determined. Patient states she lost her mucous plug this morning. She denies any chest pain or shortness of breath. TRAVEL OUTSIDE OF THE [place] IN LAST 30 DAYS: No - Related Data Allergies/Adverse Reactions: mushroom Allergy (Verified 11/12/17 11:26) peanut [Peanut] Allergy (Verified 11/12/17 11:26) 17p Allergy (Uncoded 07/27/18 01:11) Abscess at injection site Past Medical History - Social History Smoking Status: Unknown if Ever Smoked Family History: Arthritis, CAD, CVA, DM, Hyperlipidemia, Hypertension - with secondary renal failure, Thyroid Disfunction - Past Medical History Cardiac Medical History: Reports: Hx Hypertension Pulmonary Medical History: Reports: Hx Asthma Neurological Medical History: Reports: Hx Seizures Endocrine Medical History: Reports: Hx Diabetes Mellitus Type 2 Renal/ Medical History: Reports: Hx Ectopic . Denies: Hx Peritoneal Dialysis Skin Medical History: Reports Hx MRSA Psychiatric Medical History: Reports: Hx Bipolar Disorder Infectious Medical History: Reports: Hx MRSA Past Surgical History: Reports: Hx Gynecologic Surgery - Ectopic, left fallopian tube removed - Immunizations Hx Diphtheria, Pertussis, Tetanus Vaccination: No Review of Systems - Review of Systems Constitutional: denies: Fever EENT: denies: Eye discharge, Nose discharge Cardiovascular: denies: Chest pain, Palpitations Respiratory: denies: Cough, Short of breath Gastrointestinal: denies: Vomiting Musculoskeletal: denies: Leg swelling Neurological/Psychological: Other - no slurred speech -: Yes All other systems reviewed and negative Physical Exam - Vital signs Notes: Reviewed vital signs and nursing note as charted by RN. CONSTITUTIONAL: Drowsy but answering questions and protecting her airway HEAD: Normocephalic; atraumatic EYES: PERRL; sclerae non-icteric ENT: Normal nose; no rhinorrhea; moist mucous membranes; pharynx without lesions noted NECK: Supple; non-tender; no cervical lymphadenopathy, no masses CARD: Regular rate and rhythm; no murmurs; symmetric distal pulses RESP: Normal chest excursion without splinting or tachypnea; breath sounds clear and equal bilaterally ABD/GI: Normal bowel sounds; gravid consistent with dates without tenderness upon palpation BACK: The back appears normal and is non-tender to palpation EXT: Normal ROM in all joints; non-tender to palpation; no edema SKIN: No acute lesions noted NEURO: CN 2-12 intact; 5/5 bilateral upper and lower extremity strength with sensation intact to light touch Course - Re-evaluation Re-evalutation: We called COLLABORATIVE PHYSICIAN to be at bedside with a bed warmer with the patient arrived. Patient is drowsy but able to answer questions. She appears to have intermittent contractions. Patient cervical check is 2 cm with good heart tones. Minimal effacement. No active vaginal bleeding. Patient did have a repeat seizure that was transient. We have started a magnesium drip. We will order the HELLP laboratory profile. 08/30/18 15:49 COLLABORATIVE PHYSICIAN would like to take the patient to labor and delivery. Magnesium drip will be infusing. Labs are pending. Critical Care Note - Critical Care Note Total time excluding time spent on procedures (mins): 35 Discharge - Discharge Clinical Impression: Eclampsia Condition: Fair Disposition: ADMITTED INPATIENT Admitting Provider: [facility] Unit Admitted: Labor and Delivery Referrals: NAYE CONWAY PA-C [Primary Care Provider] - Follow up as needed
[2018-08-30] MEDS ORDERED: MAGNESIUM SULFATE 20 GM/500 ML RTUINJ IV ONE (15:55)
[2018-08-30] MEDS ORDERED: MAGNESIUM SULFATE 20 GM/500 ML RTUINJ IV PRN (16:00)
[2018-08-30 16:13] VITALS: BP 189/101
[2018-08-30] MEDS ORDERED: BETAMET ACET/BETAMET NA INJ 6 MG/1 ML ONE (16:45)
[2018-08-30] MEDS ORDERED: BETAMET ACET/BETAMET NA INJ 6 MG/1 ML IM ONE (16:50)
[2018-08-30] MEDS ORDERED: LORAZEPAM INJ 2 MG/1 ML VIAL ONE (16:53)
[2018-08-30] MEDS ORDERED: LORAZEPAM INJ 2 MG/1 ML VIAL IV ONE (16:59)
--- NOTE | 2018-08-30 17:01 | PDOC TRANSFER SUMMARY ---
General Admission Date/PCP: NAYE CONWAY PA-C Transfer Date: 08/30/18 Accepting Facility: [facility] Accepting Physician: Dr. Manish Pinto Resuscitation Status: Full Code - Transfer Diagnosis (1) Lupus Is this a current diagnosis for this admission?: Yes (2) Seizure Is this a current diagnosis for this admission?: Yes (3) Eclampsia Is this a current diagnosis for this admission?: Yes (4) Diabetes in Is this a current diagnosis for this admission?: Yes (5) Drug use affecting in third trimester Is this a current diagnosis for this admission?: Yes (6) Hypertension affecting in second trimester Is this a current diagnosis for this admission?: Yes - Transfer Medications Home Medications: Albuterol Sulfate [Proair HFA] 1 inh PO PRN PRN 06/08/15 No122/Iron/Folic Acid [ Multi Tablet] 1 each PO DAILY 05/03/16 Nifedipine [Procardia XL 30 mg Tablet] 1 tab PO DAILY 07/27/18 Transfer Medications: Magnesium Sulfate 2 gm/hour Betamethasone 12 mg x 1 injection Ativan 2 mg Was given Versed 10 mg by EMS prior to ER arrival (last given @ 1510) - Allergies Allergies/Adverse Reactions: mushroom Allergy (Verified 11/12/17 11:26) peanut [Peanut] Allergy (Verified 11/12/17 11:26) 17p Allergy (Uncoded 07/27/18 01:11) Abscess at injection site Hospital Course Hospital Course: arrived to ER by EMS with history of multiple seizures in 30 min period (*approximately 9 seizures) received multiple medications including the Versed as shown above. Had a seizure in ER witnessed by myself and ER staff. In L&D patient has had additional seizure. Ativan 2 mg given to prevent further seizures. Is on magnesium drip now. FHTs are 130 with minimal variability. Sono in ER displayed good movement Physical Exam Vital Signs: Temp Pulse Resp BP Pulse Ox 29 H 189/101 H 98 08/30/18 15:42 08/30/18 15:42 08/30/18 15:42 General appearance: PRESENT: no acute distress, cooperative, obese GI/Abdominal exam: PRESENT: soft Extremities exam: PRESENT: full ROM Neurological exam: PRESENT: alert, awake, oriented to person, oriented to place, oriented to time, oriented to situation Additional comments: Cervix is 2/thick/-3 Plan Discharge Plan: transfer to [facility] to the OB service Dr. Pinto accepting physician for higher level of care for patient as well as due to seizure activity and medication exposures. Time Spent: Greater than 30 Minutes
[2018-08-30] MEDS ORDERED: ALBUTEROL SULFATE 0.083% NEB 2.5 MG/3 ML AMPUL NEB ONE (17:05)
[2018-08-30 17:08] LABS: APPEARANCE,URINE CLEAR; BILIRUBIN,URINE NEGATIVE (NEGATIVE); COLOR,URINE YELLOW; GLUCOSE, URINE NEGATIVE (NEGATIVE); KETONES,URINE NEGATIVE (NEGATIVE); LEUKOCYTE ESTERASE,URINE NEGATIVE (NEGATIVE); NITRITE,URINE NEGATIVE (NEGATIVE); PROTEIN,URINE 100 mg/dL (NEGATIVE); URINE SPECIFIC GRAVITY 1.014; UROBILINOGEN,URINE NEGATIVE mg/dL (<2.0)
[2018-08-30 17:14] LABS: ABSOLUTE EOSINOPHILS # (AUTO) 0.2 10^3/uL (0.0-0.6); ABSOLUTE LYMPHOCYTES (AUTO) 1.3 10^3/uL (0.5-4.7); ABSOLUTE MONOCYTES (AUTO) 0.5 10^3/uL (0.1-1.4); ABSOLUTE NEUT (AUTO) 5.1 10^3/uL (1.7-8.2); BASOPHILS % (AUTO) 0.4 % (0-2); EOSINOPHILS % (AUTO) 2.8 % (0-6); HEMATOCRIT 29.6 % (36.0-47.0); HEMOGLOBIN 10.5 g/dL (12.0-15.5); LYMPHOCYTES % (AUTO) 18.4 % (13-45); MEAN CORPUSCULAR HEMOGLOBIN 30.9 pg (27.0-33.4); MEAN CORPUSCULAR HGB CONC 35.4 g/dL (32.0-36.0); MEAN CORPUSCULAR VOLUME 87 fl (80-97); MONOCYTES % (AUTO) 6.7 % (3-13); PLATELET COUNT 202 10^3/uL (150-450); RED BLOOD COUNT 3.38 10^6/uL (3.72-5.28); SEGMENTED NEUTROPHILS % (AUTO) 71.7 % (42-78); TOTAL CELLS COUNTED % (AUTO) 100 %; WHITE BLOOD COUNT 7.1 10^3/uL (4.0-10.5)
[2018-08-30 17:28] LABS: ALANINE AMINOTRANSFERASE 17 U/L (9-52); ALKALINE PHOSPHATASE 73 U/L (38-126); ANION GAP 7 (5-19); ASPARTATE AMINO TRANSFERASE 13 U/L (14-36); BILIRUBIN,DIRECT 0.2 mg/dL (0.0-0.4); BILIRUBIN,TOTAL 0.2 mg/dL (0.2-1.3); BLOOD UREA NITROGEN 7 mg/dL (7-20); CALCIUM 8.9 mg/dL (8.4-10.2); CARBON DIOXIDE 19 mmol/L (22-30); CHLORIDE 108 mmol/L (98-107); GLUCOSE 105 mg/dL (75-110); POTASSIUM 3.9 mmol/L (3.6-5.0); SODIUM 134.3 mmol/L (137-145); TOTAL PROTEIN 5.8 g/dL (6.3-8.2); URIC ACID 5.4 mg/dL (2.5-6.2)
[2018-08-30 17:29] LABS: UR PRO/CREAT RATIO RESULT 5.1 mg/mg (0.0-0.2); URINE PROTEIN 331.1 mg/dL (<12)
[2018-08-30 17:34] LABS: URINE AMPHETAMINES SCREEN NEGATIVE; URINE BARBITURATES SCREEN UNCONFIRMED POSITIVE; URINE BENZODIAZEPINES SCREEN UNCONFIRMED POSITIVE; URINE COCAINE SCREEN NEGATIVE; URINE MARIJUANA (THC) SCREEN UNCONFIRMED POSITIVE; URINE METHADONE SCREEN NEGATIVE; URINE PHENCYCLIDINE SCREEN NEGATIVE
== END 2018-08-30 18:22 | disposition short-term general hospital (02) ==
LOC: ER 15:34 → LR 15:45 → ER 18:22
DX: O15.03 Eclampsia complicating pregnancy, third trimester (principal); O99.353 Diseases of the nervous system complicating pregnancy, third trimester; R56.9 Unspecified convulsions; O99.513 Diseases of the respiratory system complicating pregnancy, third trimester; O16.3 Unspecified maternal hypertension, third trimester; O24.913 Unspecified diabetes mellitus in pregnancy, third trimester; Z3A.36 36 weeks gestation of pregnancy
CPT/HCPCS: 94640 ×2; 99291; 94760; 96372; 36415; 83615; 84156; 84550; 82570; 85025; 80053; 81001; 80307; 84112; J0702; J2060; J3475

== ENCOUNTER 2018-11-17 14:34 | Emergency (ER) | payer OTHER, MEDICAID ==
[2018-11-17] MEDS ORDERED: HYDROCODONE/ACETAMINOPHEN 5-325 MG TABLET PO ONE (16:06)
--- NOTE | 2018-11-17 16:07 | ER Document Report ---
HPI - HPI Time Seen by Provider: 11/17/18 15:35 Pain Level: 4 Context: Patient is a 28-year-old female who presents the emergency department with a chief complaint of right shoulder pain. Her pain started 3 days ago. She was cleaning the top bunk of a bunk bed and 1 of the screws came loose and she fell on her right shoulder. She has been taking Flexeril, ibuprofen, and Tylenol to help with her symptoms, but has not had any relief of her symptoms. She has not seen her primary care provider in regards to this issue. She is diabetic, has high blood pressure, asthma, and lupus. - ROS Notes: REVIEW OF SYSTEMS: CONSTITUTIONAL : Denies recent illness. Denies recent unintentional weight loss. Denies fever, chills, or sweats. EENT: Denies eye, ear, throat, or mouth pain, discharge, or symptoms. Denies nasal or sinus congestion. CARDIOVASCULAR: Denies chest pain. RESPIRATORY: Denies shortness of breath, cough, congestion, difficulty breathing, or wheezing. GASTROINTESTINAL: Denies nausea, vomiting, and diarrhea. Denies abdominal pain. Denies constipation. GENITOURINARY: Denies difficulty urinating, burning, blood in urine, urgency or frequency. MUSCULOSKELETAL: See HPI. SKIN: Denies rash, itchiness, or lesions HEMATOLOGIC : Denies easy bruising or bleeding. LYMPHATIC: Denies swollen, painful, enlarged glands. NEUROLOGICAL: Denies no numbness or tingling denies weakness. Denies headache. Denies altered mental status. Denies alteration in speech. PSYCHIATRIC: Denies stress, anxiety, alteration in sleep patterns, or depression. All other systems reviewed and negative. - REPRODUCTIVE Reproductive: DENIES: : - MUSCULOSKELETAL Musculoskeletal: REPORTS: Extremity pain Past Medical History - General Information source: Patient - Social History Smoking Status: Current Every Day Smoker Chew tobacco use (# tins/day): No Drug Abuse: Bath salts Family History: Arthritis, CAD, CVA, DM, Hyperlipidemia, Hypertension - with secondary renal failure, Thyroid Disfunction Patient has suicidal ideation: No Patient has homicidal ideation: No - Past Medical History Cardiac Medical History: Reports: Hx Hypertension Pulmonary Medical History: Reports: Hx Asthma Neurological Medical History: Reports: Hx Seizures Endocrine Medical History: Reports: Hx Diabetes Mellitus Type 2 Renal/ Medical History: Reports: Hx Ectopic . Denies: Hx Peritoneal Dialysis Skin Medical History: Reports Hx MRSA Psychiatric Medical History: Reports: Hx Bipolar Disorder Infectious Medical History: Reports: Hx MRSA Past Surgical History: Reports: Hx Gynecologic Surgery - Ectopic, left fallopian tube removed - Immunizations Hx Diphtheria, Pertussis, Tetanus Vaccination: No Vertical Provider Document - CONSTITUTIONAL Notes: PHYSICAL EXAMINATION: GENERAL: Appears well, healthy, well-nourished, no acute distress. HEAD: Normocephalic, atraumatic. EYES: PERRL, conjunctiva normal, all extraocular movements intact, sclera nonicteric ENT: Moist mucous membranes. NECK: Supple, no noticeable swelling, redness, rash. Normal range of motion. LUNGS: Equal breath sounds bilaterally and clear to auscultation. No wheezes rales or rhonchi. CARDIOVASCULAR: S1-S2, regular rate, regular rhythm. Radial pulses 2+, normal. ABDOMEN: Normoactive bowel sounds. Soft, nontender, no guarding, no rebound tenderness, and no masses palpated. EXTREMITIES: Decreased range of motion to right shoulder. No pitting or edema. No cyanosis. NEUROLOGICAL: Moves all extremities upon command. Strength 5/5 in all extremities, except for right shoulder. PSYCH: Normal mood, normal affect. SKIN: Warm, dry. No rash, lesions, ulcerations noted. Normal skin turgor. - INFECTION CONTROL TRAVEL OUTSIDE OF THE [place] IN LAST 30 DAYS: No Course - Re-evaluation Re-evalutation: 11/17/18 At this time there is no acute fracture, but the radiologist mentions that there is a small island at the humeral head. This may be the cause of her pain. She will be sent home with [place]. I specifically told her to only take this if she absolutely needs it. The patient will follow up with orthopedics if she continues to have pain. She was provided a sling. No vascular compromise noted. Capillary refill less than 3 seconds. Follow-up precautions were given. Verbal discharge instructions were given to the patient. They verbalized understanding. They are stable for discharge. 11/22/18 19:45 I had reviewed the patient's chart and x-ray the night after the patient had left. On the reading, there was a small bony fragment noted in her shoulder. I have advised the patient to follow-up with Dr. Light tomorrow in regards to th is visit. - Vital Signs Vital signs: Temp Pulse Resp BP Pulse Ox 98.1 F 98 16 156/104 H 99 11/17/18 14:39 11/17/18 14:39 11/17/18 14:39 11/17/18 14:39 11/17/18 14:39 Discharge - Discharge Clinical Impression: Right shoulder pain Qualifiers: Chronicity: acute Qualified Code(s): M25.511 - Pain in right shoulder Condition: Stable Disposition: HOME, SELF-CARE Instructions: Sling as Treatment (OM) Additional Instructions: You were seen today in the emergency department for right shoulder pain. At this time, there is no fracture. Follow-up with your primary care provider regards to this visit. If you continue to have pain in 2 weeks, please follow- up with orthopedics. Please continue to take Tylenol 650 mg and ibuprofen 600 mg every 6 hours for your pain. Please only take the [place] that is prescribed for you if you absolutely need it. You can take 1 tablet every 4-6 hours. You have also been provided a sling. Please wear the sling until you are evaluated by your primary care provider or orthopedics. Forms: Return to Work Referrals: NAYE CONWAY PA-C [Primary Care Provider] - Follow up in 1 week SHARMILA LIGHT MD [ACTIVE STAFF] - 11/23/18
--- NOTE | 2018-11-17 16:38 | RADIOLOGY REPORT (SQ) ---
EXAM DESCRIPTION: SHOULDER RIGHT 2 OR MORE VIEWS COMPLETED DATE/TIME: 11/17/2018 4:20 pm REASON FOR STUDY: shoulder pain COMPARISON: None. NUMBER OF VIEWS: Three views. TECHNIQUE: Internal rotation, external rotation, and Y view images acquired of the right shoulder. LIMITATIONS: None. FINDINGS: MINERALIZATION: Normal. BONES: No acute fracture. Small bone island in the mid superior humeral head. JOINTS: No dislocation. VISUALIZED LUNGS AND RIBS: No pneumothorax. No rib fracture. SOFT TISSUES: No radiopaque foreign body. OTHER: No other significant finding. IMPRESSION: 1. No acute osseous findings. TECHNICAL DOCUMENTATION: JOB ID: [id number] [employer]- All Rights Reserved Reading location - IP/workstation name: [email or web address]
[2018-11-17] MEDS ORDERED: HYDROCODONE/ACETAMINOPHEN 5-325 MG (6 TAB/ER DISP) PO PRN (16:53)
[2018-11-17 16:54] VITALS: BP 158/115
== END 2018-11-17 17:00 | disposition home or self-care (01) ==
LOC: ER 14:34
DX: M25.511 Pain in right shoulder (principal); W19.XXXA Unspecified fall, initial encounter; Y93.89 Activity, other specified; Y99.0 Civilian activity done for income or pay; I10 Essential (primary) hypertension; J45.909 Unspecified asthma, uncomplicated; F17.200 Nicotine dependence, unspecified, uncomplicated
CPT/HCPCS: 99283

== ENCOUNTER 2018-12-02 15:53 | Emergency (ER) | payer MEDICAID, OTHER ==
--- NOTE | 2018-12-02 17:18 | ER Document Report ---
ED Medical Screen (RME) - General Chief Complaint: Shoulder Pain Stated Complaint: SHOULDER PAIN Time Seen by Provider: 12/02/18 16:29 Primary Care Provider: NAYE CONWAY PA-C [Primary Care Provider] - Follow up as needed TRAVEL OUTSIDE OF THE [place] IN LAST 30 DAYS: No - HPI Notes: 12/02/18 17:08 28-year-old female presents the ER for complaints of right shoulder pain, states she was seen 2 weeks ago after falling off of a bunk bed while at work, landed on her shoulder, was told that she "might have a bone sticking out" on x-ray, she is had her shoulder immobilizer for the last 2 weeks, has not taken out besides showering, states pain is slowly worse 9 out of 10, throbbing achy. Reports swelling around the shoulder and arm, patient also was hypertensive, blood pressure 180s over 130s, patient does take blood pressure medication, procardia 30mg BID, just switched recently. Patient did have a in August, states that she had multiple seizures and was flown out for delivery of her child with preeclampsia. Patient was supposed to be seen by Dr. Cherry but did not go because of insurance issues. ROS: Other than noted above, the 12 point review of systems was reviewed with the patient and were negative, all pertinent findings are included in the HPI. PHYSICAL EXAMINATION: Vital signs reviewed. GENERAL: Well-appearing, well-nourished and in no acute distress. HEAD: Atraumatic, normocephalic. NECK: Normal range of motion CV: Heart regular rate and rhythm LUNGS: No respiratory distress ABD: generalized abd pain Musculoskeletal: Normal range of motion. Right shoulder pain with abduction and flexion. 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 limited in shoulder range of motion with noted swelling. positive impingement sign all right. no cervical spinal tenderness. No tenderness over clavicles or step off noted bilaterally. NEUROLOGICAL: Normal speech PSYCH: Normal mood, normal affect. MDM: Patient seen and examined for rapid initial assessment. Vital signs reviewed. A comprehensive ED assessment and evaluation of the patient, analysis of test results and completion of the medical decision making process will be conducted by additional ED providers. *Note is created using voice recognition software and may contain spelling, syntax or grammatical errors. - Related Data Allergies/Adverse Reactions: mushroom Allergy (Verified 12/02/18 16:18) peanut [Peanut] Allergy (Verified 12/02/18 16:18) 17p Allergy (Uncoded 12/02/18 16:18) Abscess at injection site Past Medical History - Social History Frequency of alcohol use: None Drug Abuse: None - Past Medical History Cardiac Medical History: Reports: Hx Hypertension Pulmonary Medical History: Reports: Hx Asthma Neurological Medical History: Reports: Hx Seizures Endocrine Medical History: Reports: Hx Diabetes Mellitus Type 2 Renal/ Medical History: Reports: Hx Ectopic . Denies: Hx Peritoneal Dialysis Skin Medical History: Reports Hx MRSA Psychiatric Medical History: Reports: Hx Bipolar Disorder Infectious Medical History: Reports: Hx MRSA Past Surgical History: Reports: Hx Section - x1, Hx Gynecologic Surgery - Ectopic, left fallopian tube removed, Hx Orthopedic Surgery - left arm, Hx Tubal Ligation - Immunizations Hx Diphtheria, Pertussis, Tetanus Vaccination: No Physical Exam - Vital signs Vitals: Temp Pulse Resp BP Pulse Ox 98.5 F 87 20 178/127 H 100 12/02/18 16:20 12/02/18 16:20 12/02/18 16:20 12/02/18 16:20 12/02/18 16:20 Course - Vital Signs Vital signs: Temp Pulse Resp BP Pulse Ox 98.5 F 87 20 178/127 H 100 12/02/18 16:20 12/02/18 16:20 12/02/18 16:20 12/02/18 16:20 12/02/18 16:20 Doctor's Discharge - Discharge Referrals: NAYE CONWAY PA-C [Primary Care Provider] - Follow up as needed
[2018-12-02 17:37] LABS: ABSOLUTE BASOPHILS # (AUTO) 0.1 10^3/uL (0.0-0.2); ABSOLUTE EOSINOPHILS # (AUTO) 0.4 10^3/uL (0.0-0.6); ABSOLUTE MONOCYTES (AUTO) 0.4 10^3/uL (0.1-1.4); ABSOLUTE NEUT (AUTO) 2.9 10^3/uL (1.7-8.2); BASOPHILS % (AUTO) 0.9 % (0-2); EOSINOPHILS % (AUTO) 6.2 % (0-6); HEMATOCRIT 38.6 % (36.0-47.0); HEMOGLOBIN 12.8 g/dL (12.0-15.5); MEAN CORPUSCULAR HEMOGLOBIN 27.3 pg (27.0-33.4); MEAN CORPUSCULAR VOLUME 83 fl (80-97); MONOCYTES % (AUTO) 6.5 % (3-13); PLATELET COUNT 304 10^3/uL (150-450); RED BLOOD COUNT 4.66 10^6/uL (3.72-5.28); SEGMENTED NEUTROPHILS % (AUTO) 50.4 % (42-78); TOTAL CELLS COUNTED % (AUTO) 100 %; WHITE BLOOD COUNT 5.7 10^3/uL (4.0-10.5)
--- NOTE | 2018-12-02 17:44 | RADIOLOGY REPORT (SQ) ---
EXAM DESCRIPTION: SHOULDER RIGHT 2 OR MORE VIEWS COMPLETED DATE/TIME: 12/02/2018 5:30 pm REASON FOR STUDY: questionable left shoulder fx COMPARISON: Right shoulder films 11/17/2018 NUMBER OF VIEWS: Three views. TECHNIQUE: Internal rotation, external rotation, and Y view images acquired of the right shoulder. LIMITATIONS: None. FINDINGS: MINERALIZATION: Normal. BONES: No acute fracture. No worrisome bone lesions. JOINTS: No dislocation. VISUALIZED LUNGS AND RIBS: No pneumothorax. No rib fracture. SOFT TISSUES: No radiopaque foreign body. OTHER: No other significant finding. IMPRESSION: NEGATIVE STUDY OF THE RIGHT SHOULDER. NO RADIOGRAPHIC EVIDENCE OF ACUTE INJURY. TECHNICAL DOCUMENTATION: JOB ID: [id number] [employer]- All Rights Reserved Reading location - IP/workstation name: [email or web address]
[2018-12-02] MEDS ORDERED: CLONIDINE HCL 0.1 MG TABLET PO ONE (17:46)
[2018-12-02 17:47] LABS: PROTHROMBIN TIME 12.1 SEC (11.4-15.4)
[2018-12-02 17:56] LABS: ALANINE AMINOTRANSFERASE 30 U/L (9-52); ALBUMIN 3.7 g/dL (3.5-5.0); ALKALINE PHOSPHATASE 65 U/L (38-126); ANION GAP 7 (5-19); ASPARTATE AMINO TRANSFERASE 24 U/L (14-36); BILIRUBIN,DIRECT 0.1 mg/dL (0.0-0.4); BILIRUBIN,TOTAL 0.2 mg/dL (0.2-1.3); BLOOD UREA NITROGEN 16 mg/dL (7-20); CALCIUM 9.2 mg/dL (8.4-10.2); CARBON DIOXIDE 24 mmol/L (22-30); CHLORIDE 108 mmol/L (98-107); GLUCOSE 89 mg/dL (75-110); POTASSIUM 4.1 mmol/L (3.6-5.0); SODIUM 138.8 mmol/L (137-145); TOTAL PROTEIN 6.7 g/dL (6.3-8.2)
[2018-12-02 18:06] LABS: APPEARANCE,URINE SLIGHTLY-CLOUDY; BILIRUBIN,URINE NEGATIVE (NEGATIVE); COLOR,URINE YELLOW; GLUCOSE, URINE NEGATIVE (NEGATIVE); KETONES,URINE NEGATIVE (NEGATIVE); LEUKOCYTE ESTERASE,URINE NEGATIVE (NEGATIVE); NITRITE,URINE NEGATIVE (NEGATIVE); PROTEIN,URINE >=500 mg/dL (NEGATIVE); UROBILINOGEN,URINE NEGATIVE mg/dL (<2.0)
--- NOTE | 2018-12-02 19:06 | EKG REPORT ---
SEVERITY:- ABNORMAL ECG - SINUS RHYTHM PROBABLE LEFT VENTRICULAR HYPERTROPHY NONSPECIFIC ST-T CHANGES INFEROLATERAL LEADS : Confirmed by: Ashish Wells MD 02-Dec-2018 19:06:08
[2018-12-02] MEDS ORDERED: ACETAMINOPHEN 325 MG TABLET PO ONE (19:26)
[2018-12-03] MEDS ORDERED: LIDOCAINE 5% (700 MG) TRANSDERMAL ADH..PATCH TP ONE (00:55)
[2018-12-03] MEDS ORDERED: HYDROCODONE/ACETAMINOPHEN 5-325 MG TABLET PO ONE (00:55)
[2018-12-03] MEDS ORDERED: HYDROCODONE/ACETAMINOPHEN 5-325 MG (6 TAB/ER DISP) PO PRN (00:55)
--- NOTE | 2018-12-03 01:01 | ER Document Report ---
ED General - General Chief Complaint: Shoulder Pain Stated Complaint: SHOULDER PAIN Time Seen by Provider: 12/02/18 16:29 Primary Care Provider: NAYE CONWAY PA-C [NO LOCAL MD] - Follow up as needed Notes: Patient is a 28-year-old female who complains of right shoulder pain. She injured it a few weeks ago when she was cleaning a bunk bed and the screw came loose and she fell down onto her right shoulder. She was seen here and had x- ray which showed may be a bony island. They placed her in a sling and referred to Ortho. She called Dr. Cherry's office and they referred her to her orthopedist in [place]. She has an appointment next week with her orthopedist. She says she is unable to fully abduct her right arm. She says she has pain with range of motion of her right shoulder. She says she has been wearing a sling. She is frustrated because she has ongoing pain has not yet been I will see the orthopedist. She denies any weakness into the hand. No new injuries. She is not currently breast-feeding. TRAVEL OUTSIDE OF THE [place] IN LAST 30 DAYS: No - Related Data Allergies/Adverse Reactions: mushroom Allergy (Verified 12/02/18 16:18) peanut [Peanut] Allergy (Verified 12/02/18 16:18) 17p Allergy (Uncoded 12/02/18 16:18) Abscess at injection site Past Medical History - Social History Smoking Status: Current Every Day Smoker Frequency of alcohol use: None Drug Abuse: None Family History: Arthritis, CAD, CVA, DM, Hyperlipidemia, Hypertension - with secondary renal failure, Thyroid Disfunction Patient has suicidal ideation: No Patient has homicidal ideation: No - Past Medical History Cardiac Medical History: Reports: Hx Hypertension Pulmonary Medical History: Reports: Hx Asthma Neurological Medical History: Reports: Hx Seizures Endocrine Medical History: Reports: Hx Diabetes Mellitus Type 2 Renal/ Medical History: Reports: Hx Ectopic . Denies: Hx Peritoneal Dialysis Skin Medical History: Reports Hx MRSA Psychiatric Medical History: Reports: Hx Bipolar Disorder Infectious Medical History: Reports: Hx MRSA Past Surgical History: Reports: Hx Section - x1, Hx Gynecologic Surgery - Ectopic, left fallopian tube removed, Hx Orthopedic Surgery - left arm, Hx T ubal Ligation - Immunizations Hx Diphtheria, Pertussis, Tetanus Vaccination: No Review of Systems - Review of Systems Notes: My Normal Review Basic REVIEW OF SYSTEMS: CONSTITUTIONAL : Denies fever, chills, or sweats. Denies recent illness. RESPIRATORY: Denies cough, cold, or chest congestion. Denies shortness of breath, difficulty breathing, or wheezing. GASTROINTESTINAL: Denies abdominal pain. Denies nausea, vomiting, or diarrhea. MUSCULOSKELETAL: Right shoulder pain. SKIN: Denies rash or skin lesions. NEUROLOGICAL: Denies sensory or motor loss. ALL OTHER SYSTEMS REVIEWED AND NEGATIVE. Physical Exam - Vital signs Vitals: Temp Pulse Resp BP Pulse Ox 98.5 F 87 20 178/127 H 100 12/02/18 16:20 12/02/18 16:20 12/02/18 16:20 12/02/18 16:20 12/02/18 16:20 - Notes Notes: General Appearance: Well nourished, alert, cooperative, no acute distress, moderate obvious discomfort. Vitals: reviewed, See vital signs table. Head: no swelling or tenderness to the head Eyes: PERRL, EOMI, Conjuctiva clear Neck: Supple, pain into the right trapezius muscle. Extremities: good pulses in all extremities, patient has pain with any attempted range of motion of the right shoulder. I am able to do some range of motion. Is not restricted but she does have a large amount of pain. She has pain to palpation mainly over the superior and anterior aspects of the right shoulder. No pain into the elbow forearm wrist or hand. She has good strength with flexi on-extension of all fingers of the right hand. Good distal sensation all fingers. Good pulses both radially and ulnarly. Good capillary refill in the right hand. Skin: warm, dry, appropriate color, no rash Neuro: speech clear, oriented x 3, normal affect, responds appropriately to questions. Course - Re-evaluation Re-evalutation: 12/03/18 06:06 Patient has what I suspect his rotator cuff tear. I informed her that this will continue to be somewhat painful. I encouraged her to still put her shoulder through mild range of motion several times a day. I encouraged her to continue wear the sling but informed her that she can remove the sling as long as she is not up and moving around. I encouraged her to continue with her appointment follow-up with orthopedist. She complains that Tylenol Motrin has not been helping the pain at all. I will give him Lidoderm patches and I will prescribe her a few tablets of [place] that told her she can take when the pain is severe. Patient informed that [place] may make her sleepy and impaired judgment and therefore she needs to make sure that there is someone else around to help her manage her children when she takes this medication. Patient agrees with plan and will be discharged home. Dictation of this chart was performed using voice recognition software; therefore, there may be some unintended grammatical errors. - Vital Signs Vital signs: Temp Pulse Resp BP Pulse Ox 99.3 F 72 20 144/89 H 100 12/03/18 01:13 12/03/18 01:13 12/03/18 01:13 12/03/18 01:13 12/03/18 01:13 - Laboratory Result Diagrams: 12/02/18 17:00 12/02/18 17:00 Laboratory results interpreted by me: 12/02/18 12/02/18 12/02/18 17:00 17:00 17:35 RDW 16.0 H Eosinophils % 6.2 H Chloride 108 H Urine Protein >=500 H Discharge - Discharge Clinical Impression: Shoulder pain, right Qualifiers: Chronicity: acute Qualified Code(s): M25.511 - Pain in right shoulder Condition: Good Disposition: HOME, SELF-CARE Additional Instructions: Please continue with the plan to follow-up with your orthopedist in [place]. Please wear the sling throughout most the day. When you are up and moving around you should wear the sling. If you are laying down or sitting and resting you can remove the sling for a little bit as long you keep your arm against your body. Still slowly place your right shoulder through some range of motion approximately 3-4 times a day. I have given you prescription for a medication called [place]. Please be aware that [place] does have Tylenol (acetaminophen) in it. Please make sure you do not take more than 4000 mg of acetaminophen a day. Do not drive or care for children after you have taken this medication they will make you sleepy and sometimes impair judgment. Prescriptions: Hydrocodone/Acetaminophen [[place] 5-325 mg Tablet] 1 tab PO Q4 PRN #10 tablet PRN Reason: For Breakthrough Pain Lidocaine [Lidoderm 5% (700 mg) Transdermal Patch] 1 patch TP DAILY #30 adh..patch Referrals: MAN,NAYE, PA-C [NO LOCAL MD] - Follow up as needed
[2018-12-03 01:14] VITALS: BP 144/89
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
== END 2018-12-03 01:22 | disposition home or self-care (01) ==
LOC: ER 15:53
DX: M25.511 Pain in right shoulder (principal); F17.200 Nicotine dependence, unspecified, uncomplicated; I10 Essential (primary) hypertension; E11.9 Type 2 diabetes mellitus without complications; Z86.14 Personal history of Methicillin resistant Staphylococcus aureus infection; Z98.51 Tubal ligation status
CPT/HCPCS: 36415; 80053; 81001; 81025; 85025; 85610; 85730; 93005; 93010; 93971; 99284

== ENCOUNTER 2019-02-23 15:51 | Emergency (ER) | payer OTHER ==
[2019-02-23] MEDS ORDERED: IBUPROFEN 600 MG TABLET PO ONE (16:39)
[2019-02-23] MEDS ORDERED: ACETAMINOPHEN 325 MG TABLET PO ONE (16:39)
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
[2019-02-23] MEDS ORDERED: OXYCODONE HCL IR 5 MG TABLET PO ONE (18:59)
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
[2019-02-23 19:31] VITALS: BP 172/113
== END 2019-02-23 19:25 | disposition home or self-care (01) ==
LOC: ER 15:51
DX: S61.202A Unspecified open wound of right middle finger without damage to nail, initial encounter (principal); S20.211A Contusion of right front wall of thorax, initial encounter; R07.81 Pleurodynia; R07.1 Chest pain on breathing; M79.644 Pain in right finger(s); V86.55XA Driver of 3- or 4- wheeled all-terrain vehicle (ATV) injured in nontraffic accident, initial encounter; F12.10 Cannabis abuse, uncomplicated; I10 Essential (primary) hypertension; J45.909 Unspecified asthma, uncomplicated; E11.9 Type 2 diabetes mellitus without complications; F17.210 Nicotine dependence, cigarettes, uncomplicated; Z71.6 Tobacco abuse counseling; Z91.018 Allergy to other foods; Z91.010 Allergy to peanuts; Z88.8 Allergy status to other drugs, medicaments and biological substances
CPT/HCPCS: 99283

== ENCOUNTER 2019-04-11 14:42 | Emergency (ER) | payer SELFPAY ==
[2019-04-11] MEDS ORDERED: ALBUTEROL SULFATE 0.083% NEB 2.5 MG/3 ML AMPUL NEB ONE ×2 (14:52)
[2019-04-11] MEDS ORDERED: METHYLPREDNISOLONE INJ 125 MG/2 ML SDV IV ONE (14:52)
[2019-04-11] MEDS ORDERED: METHYLPREDNISOLONE INJ 125 MG/2 ML SDV ONE (14:52)
[2019-04-11] MEDS ORDERED: IPRATROPIUM/ALBUTEROL 0.5-2.5 MG/3 ML AMPUL NEB ONE ×2 (14:52)
[2019-04-11] MEDS ORDERED: MAGNESIUM SULFATE/D5W 1 GM/100 ML RTUPB IV ONE ×3 (15:01→15:24)
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
[2019-04-11 15:10] LABS: ABSOLUTE BASOPHILS # (AUTO) 0.1 10^3/uL (0.0-0.2); ABSOLUTE EOSINOPHILS # (AUTO) 0.8 10^3/uL (0.0-0.6); ABSOLUTE LYMPHOCYTES (AUTO) 2.4 10^3/uL (0.5-4.7); ABSOLUTE NEUT (AUTO) 6.4 10^3/uL (1.7-8.2); BASOPHILS % (AUTO) 0.6 % (0-2); HEMATOCRIT 42.4 % (36.0-47.0); HEMOGLOBIN 14.6 g/dL (12.0-15.5); LYMPHOCYTES % (AUTO) 22.8 % (13-45); MEAN CORPUSCULAR HEMOGLOBIN 28.5 pg (27.0-33.4); MEAN CORPUSCULAR HGB CONC 34.5 g/dL (32.0-36.0); MEAN CORPUSCULAR VOLUME 82 fl (80-97); MONOCYTES % (AUTO) 9.2 % (3-13); PLATELET COUNT 362 10^3/uL (150-450); RED BLOOD COUNT 5.14 10^6/uL (3.72-5.28); RED CELL DISTRIBUTION WIDTH 15.5 % (11.5-14.0); SEGMENTED NEUTROPHILS % (AUTO) 60.4 % (42-78); TOTAL CELLS COUNTED % (AUTO) 100 %; WHITE BLOOD COUNT 10.7 10^3/uL (4.0-10.5)
[2019-04-11] MEDS ORDERED: RINGERS SOLUTION,LACTATED 1,000 ML IV ONE (15:27)
[2019-04-11 15:29] LABS: ALBUMIN 3.8 g/dL (3.5-5.0); ALKALINE PHOSPHATASE 90 U/L (38-126); ANION GAP 8 (5-19); ASPARTATE AMINO TRANSFERASE 28 U/L (14-36); BILIRUBIN,TOTAL 0.4 mg/dL (0.2-1.3); BLOOD UREA NITROGEN 8 mg/dL (7-20); CALCIUM 9.9 mg/dL (8.4-10.2); CARBON DIOXIDE 26 mmol/L (22-30); CHLORIDE 105 mmol/L (98-107); GLUCOSE 139 mg/dL (75-110); TOTAL PROTEIN 7.2 g/dL (6.3-8.2)
--- NOTE | 2019-04-11 15:52 | RADIOLOGY REPORT (SQ) ---
EXAM DESCRIPTION: CHEST SINGLE VIEW COMPLETED DATE/TIME: 04/11/2019 3:44 pm REASON FOR STUDY: cough short of breath COMPARISON: None. EXAM PARAMETERS: NUMBER OF VIEWS: One view. TECHNIQUE: Single frontal radiographic view of the chest acquired. RADIATION DOSE: NA LIMITATIONS: None. FINDINGS: LUNGS AND PLEURA: No opacities, masses or pneumothorax. No pleural effusion. MEDIASTINUM AND HILAR STRUCTURES: No masses. Contour normal. HEART AND VASCULAR STRUCTURES: Heart normal in size. Normal vasculature. BONES: No acute findings. HARDWARE: None in the chest. OTHER: No other significant finding. IMPRESSION: NO ACUTE RADIOGRAPHIC FINDING IN THE CHEST. TECHNICAL DOCUMENTATION: JOB ID: [id number] [employer]- All Rights Reserved Reading location - IP/workstation name: [email or web address]
[2019-04-11 15:56] LABS: NT PRO BNP 423 pg/mL (<125); TROPONIN I < 0.012 ng/mL
[2019-04-11] MEDS ORDERED: NITROGLYCERIN 2% OINTMENT 1 GM PACKET TP ONE ×2 (16:31→18:57)
[2019-04-11 17:15] LABS: ARTERIAL BLOOD BASE EXCESS 1.1 mmol/L; ARTERIAL BLOOD H2CO3 0.99 mmol/L (1.05-1.35); ARTERIAL BLOOD O2 SATURATION 98.7 % (94-98); ARTERIAL BLOOD PH 7.48 (7.35-7.45); ARTERIAL BLOOD PO2 123.5 mmHg (80-100)
--- NOTE | 2019-04-11 17:16 | EKG REPORT ---
SEVERITY:- ABNORMAL ECG - SINUS RHYTHM PROBABLE LEFT VENTRICULAR HYPERTROPHY BORDERLINE T ABNORMALITIES, INFERIOR LEADS BORDERLINE PROLONGED QT INTERVAL : Confirmed by: Ashish Wells MD 11-Apr-2019 17:16:16
[2019-04-11 17:20] LABS: ARTERIAL BLOOD FIO2 30%
[2019-04-11] MEDS ORDERED: NITROGLYCERIN/D5W 50 MG/250 ML RTUINJ IV PRN (19:05)
[2019-04-11 20:19] LABS: APPEARANCE,URINE CLOUDY; BILIRUBIN,URINE NEGATIVE (NEGATIVE); COLOR,URINE DARK YELLOW; GLUCOSE, URINE 50 mg/dL (NEGATIVE); KETONES,URINE NEGATIVE (NEGATIVE); LEUKOCYTE ESTERASE,URINE NEGATIVE (NEGATIVE); NITRITE,URINE NEGATIVE (NEGATIVE); PROTEIN,URINE >=500 mg/dL (NEGATIVE); URINE SPECIFIC GRAVITY 1.031; UROBILINOGEN,URINE NEGATIVE mg/dL (<2.0)
[2019-04-11 20:29] LABS: URINE AMPHETAMINES SCREEN NEGATIVE; URINE BARBITURATES SCREEN NEGATIVE; URINE BENZODIAZEPINES SCREEN NEGATIVE; URINE COCAINE SCREEN UNCONFIRMED POSITIVE; URINE MARIJUANA (THC) SCREEN UNCONFIRMED POSITIVE; URINE METHADONE SCREEN NEGATIVE; URINE PHENCYCLIDINE SCREEN NEGATIVE
[2019-04-11] MEDS ORDERED: NICARDIPINE HCL RTU, ISO-OS 20 MG/200 ML RTUINJ IV PRN ×2 (21:09→21:21)
[2019-04-11] MEDS ORDERED: METOCLOPRAMIDE HCL INJ/PF 10 MG/2 ML SDV IV ONE (21:15)
[2019-04-11] MEDS ORDERED: ASPIRIN 81 MG TABLET, CHEWABLE PO ONE (21:15)
[2019-04-11 21:55] VITALS: BP 176/151
[2019-04-11] MEDS ORDERED: LORAZEPAM INJ 2 MG/1 ML VIAL IV ONE (22:07)
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
== END 2019-04-11 23:03 | disposition left against medical advice (07) ==
LOC: ER 14:42
DX: F14.129 Cocaine abuse with intoxication, unspecified (principal); R07.9 Chest pain, unspecified; J96.91 Respiratory failure, unspecified with hypoxia; R05 Cough; I10 Essential (primary) hypertension; E11.9 Type 2 diabetes mellitus without complications; J45.909 Unspecified asthma, uncomplicated; Z79.899 Other long term (current) drug therapy
CPT/HCPCS: 93005; 94640 ×2; 99285; 96361; 96375; 96365; 96366; 96367; 36415; 82803; 82550; 83735; 84703; 85025; 80053; 81001; 84484; 80307; 83880; 71045; 93010; 36600; 94660; J2930; J2765; J3475; J3490; J7120; J7620

== ENCOUNTER 2019-04-19 20:05 | Emergency (ER) | payer SELFPAY ==
[2019-04-19 20:33] LABS: ABSOLUTE BASOPHILS # (AUTO) 0.1 10^3/uL (0.0-0.2); ABSOLUTE EOSINOPHILS # (AUTO) 0.3 10^3/uL (0.0-0.6); ABSOLUTE LYMPHOCYTES (AUTO) 2.5 10^3/uL (0.5-4.7); ABSOLUTE MONOCYTES (AUTO) 0.4 10^3/uL (0.1-1.4); ABSOLUTE NEUT (AUTO) 3.5 10^3/uL (1.7-8.2); BASOPHILS % (AUTO) 0.8 % (0-2); EOSINOPHILS % (AUTO) 4.5 % (0-6); HEMATOCRIT 37.7 % (36.0-47.0); HEMOGLOBIN 12.8 g/dL (12.0-15.5); LYMPHOCYTES % (AUTO) 36.7 % (13-45); MEAN CORPUSCULAR VOLUME 82 fl (80-97); MONOCYTES % (AUTO) 6.5 % (3-13); PLATELET COUNT 272 10^3/uL (150-450); RED BLOOD COUNT 4.59 10^6/uL (3.72-5.28); RED CELL DISTRIBUTION WIDTH 15.2 % (11.5-14.0); SEGMENTED NEUTROPHILS % (AUTO) 51.5 % (42-78); TOTAL CELLS COUNTED % (AUTO) 100 %; WHITE BLOOD COUNT 6.9 10^3/uL (4.0-10.5)
[2019-04-19 20:52] LABS: ALBUMIN 3.3 g/dL (3.5-5.0); ALKALINE PHOSPHATASE 70 U/L (38-126); ANION GAP 8 (5-19); ASPARTATE AMINO TRANSFERASE 25 U/L (14-36); BILIRUBIN,TOTAL 0.1 mg/dL (0.2-1.3); BLOOD UREA NITROGEN 12 mg/dL (7-20); CALCIUM 9.1 mg/dL (8.4-10.2); CARBON DIOXIDE 23 mmol/L (22-30); CHLORIDE 104 mmol/L (98-107); CREATINE KINASE 309 U/L (30-135); GLUCOSE 104 mg/dL (75-110); POTASSIUM 3.9 mmol/L (3.6-5.0); TOTAL PROTEIN 6.5 g/dL (6.3-8.2)
[2019-04-19 21:03] LABS: CREATINE KINASE MB 1.69 ng/mL (<4.55); TROPONIN I < 0.012 ng/mL
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
[2019-04-19 21:51] LABS: APPEARANCE,URINE CLEAR; BILIRUBIN,URINE NEGATIVE (NEGATIVE); COLOR,URINE YELLOW; GLUCOSE, URINE NEGATIVE (NEGATIVE); KETONES,URINE NEGATIVE (NEGATIVE); LEUKOCYTE ESTERASE,URINE NEGATIVE (NEGATIVE); NITRITE,URINE NEGATIVE (NEGATIVE); PROTEIN,URINE >=500 mg/dL (NEGATIVE); URINE SPECIFIC GRAVITY 1.015; UROBILINOGEN,URINE NEGATIVE mg/dL (<2.0)
--- NOTE | 2019-04-19 22:29 | EKG REPORT ---
SEVERITY:- ABNORMAL ECG - SINUS RHYTHM CONSIDER LEFT VENTRICULAR HYPERTROPHY : Confirmed by: Olive Chowdhury MD 19-Apr-2019 22:29:33
--- NOTE | 2019-04-19 22:49 | RADIOLOGY REPORT (SQ) ---
EXAM DESCRIPTION: CT head without contrast CLINICAL HISTORY: 29 years Female, seizure; tenderness to crown of head COMPARISON: CT head 05/18/2015 TECHNIQUE: Axial images of the head were performed without the use of intravenous contrast, with sagittal and coronal reformatted images. This exam was performed according to our departmental dose-optimization program which includes use of Automated Exposure Control, adjustment of the mA and/or kV according to patient size and/or use of iterative reconstruction technique. FINDINGS: No evidence of acute hemorrhage or infarct. No evidence of mass or hydrocephalus. There is bilateral maxillary sinus disease and left sphenoid sinus disease. These are new findings, as compared with the prior scan. IMPRESSION: Sinus disease. No intracranial finding.
[2019-04-19] MEDS ORDERED: METOCLOPRAMIDE HCL INJ/PF 10 MG/2 ML SDV IV ONE (23:07)
[2019-04-19] MEDS ORDERED: DIPHENHYDRAMINE HCL 50 MG/ML VIAL IV ONE (23:07)
[2019-04-19] MEDS ORDERED: KETOROLAC TROMETHAMINE INJ/PF 30 MG/1 ML SDV IV ONE (23:08)
[2019-04-19] MEDS ORDERED: NORMAL SALINE 1000 ML 1,000 ML IV ONE (23:08)
[2019-04-19] MEDS ORDERED: AMOXICILLIN TRIHYD 250 MG CAPSULE PO ONE (23:30)
[2019-04-19] MEDS ORDERED: AMOXICILLIN TR/POT CLAVULANATE 500-125 MG TAB PO ONE (23:30)
[2019-04-20 00:17] VITALS: BP 191/119
== END 2019-04-20 00:18 | disposition home or self-care (01) ==
LOC: ER 20:05
DX: J01.10 Acute frontal sinusitis, unspecified (principal); R56.9 Unspecified convulsions; R51 Headache; I10 Essential (primary) hypertension; J45.909 Unspecified asthma, uncomplicated; E11.9 Type 2 diabetes mellitus without complications
CPT/HCPCS: 93005; 99284; 96361; 96374; 96375; 36415; 82553; 82550; 84703; 85025; 80053; 81001; 84484; 70450; 93010; J3490; J1200; J1885; J2765; J7030

== ENCOUNTER 2019-08-17 19:26 | Emergency (ER) | payer SELFPAY ==
[2019-08-17] MEDS ORDERED: CYCLOBENZAPRINE HCL 10 MG TABLET PO ONE (19:38)
[2019-08-17] MEDS ORDERED: ACETAMINOPHEN 325 MG TABLET PO ONE (19:38)
[2019-08-17] MEDS ORDERED: CLONIDINE HCL 0.1 MG TABLET PO ONE (19:39)
[2019-08-17 19:46] LABS: ABSOLUTE EOSINOPHILS # (AUTO) 0.3 10^3/uL (0.0-0.6); ABSOLUTE MONOCYTES (AUTO) 0.4 10^3/uL (0.1-1.4); ABSOLUTE NEUT (AUTO) 2.4 10^3/uL (1.7-8.2); BASOPHILS % (AUTO) 0.9 % (0-2); EOSINOPHILS % (AUTO) 5.8 % (0-6); HEMATOCRIT 36.7 % (36.0-47.0); HEMOGLOBIN 12.6 g/dL (12.0-15.5); LYMPHOCYTES % (AUTO) 39.3 % (13-45); MEAN CORPUSCULAR HEMOGLOBIN 27.9 pg (27.0-33.4); MEAN CORPUSCULAR HGB CONC 34.3 g/dL (32.0-36.0); MEAN CORPUSCULAR VOLUME 81 fl (80-97); PLATELET COUNT 283 10^3/uL (150-450); RED BLOOD COUNT 4.52 10^6/uL (3.72-5.28); TOTAL CELLS COUNTED % (AUTO) 100 %; WHITE BLOOD COUNT 5.2 10^3/uL (4.0-10.5)
[2019-08-17 19:50] LABS: INTERNATIONAL RATION (INR) 0.92; PROTHROMBIN TIME 12.3 SEC (11.4-15.4)
[2019-08-17 19:51] LABS: PARTIAL THROMBOPLASTIN TIME 36.4 SEC (23.5-35.8)
[2019-08-17 19:54] LABS: D-DIMER 0.67 ug/mL (0.00-0.50)
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
[2019-08-17] MEDS ORDERED: ASPIRIN 81 MG TABLET, CHEWABLE PO ONE (19:57)
[2019-08-17 20:01] LABS: ALKALINE PHOSPHATASE 56 U/L (38-126); ASPARTATE AMINO TRANSFERASE 22 U/L (14-36); BILIRUBIN,TOTAL 0.1 mg/dL (0.2-1.3); BLOOD UREA NITROGEN 12 mg/dL (7-20); CALCIUM 8.7 mg/dL (8.4-10.2); CARBON DIOXIDE 25 mmol/L (22-30); CHLORIDE 106 mmol/L (98-107); GLUCOSE 154 mg/dL (75-110); POTASSIUM 3.9 mmol/L (3.6-5.0); TOTAL PROTEIN 5.8 g/dL (6.3-8.2)
[2019-08-17 20:09] LABS: ANION GAP 4 (5-19)
[2019-08-17 20:26] LABS: APPEARANCE,URINE SLIGHTLY-CLOUDY; BILIRUBIN,URINE NEGATIVE (NEGATIVE); COLOR,URINE YELLOW; GLUCOSE, URINE 50 mg/dL (NEGATIVE); KETONES,URINE NEGATIVE (NEGATIVE); PROTEIN,URINE >=500 mg/dL (NEGATIVE); UROBILINOGEN,URINE NEGATIVE mg/dL (<2.0)
--- NOTE | 2019-08-17 20:27 | RADIOLOGY REPORT (SQ) ---
EXAM DESCRIPTION: AP portable radiograph of the chest CLINICAL HISTORY: 29 years Female, CP COMPARISON: Single view of the chest April 11, 2019 FINDINGS: Exam is overpenetrated. This slightly limits the diagnostic utility. The lung apices are not well seen secondary to overpenetration. Lungs: Lungs are clear. No focal consolidation. No obvious pleural effusion or pneumothorax. Mediastinum: Cardiac and mediastinal silhouette are within normal limits Bones: Osseous structures are normal. IMPRESSION: No acute process. No significant interval change.
[2019-08-17 20:41] LABS: URINE AMPHETAMINES SCREEN NEGATIVE; URINE BARBITURATES SCREEN NEGATIVE; URINE BENZODIAZEPINES SCREEN NEGATIVE; URINE COCAINE SCREEN NEGATIVE; URINE METHADONE SCREEN NEGATIVE; URINE PHENCYCLIDINE SCREEN NEGATIVE
[2019-08-17 20:44] LABS: URINE MARIJUANA (THC) SCREEN UNCONFIRMED POSITIVE
[2019-08-17] MEDS ORDERED: NIFEDIPINE 10 MG CAPSULE PO ONE (20:55)
--- NOTE | 2019-08-17 21:38 | RADIOLOGY REPORT (SQ) ---
EXAM DESCRIPTION: CT angiogram of the chest with IV contrast. CLINICAL HISTORY: 29 years Female; CP with elevated d-dimer TECHNIQUE: CT angiogram of the chest using intravenous contrast.. MIP reconstructions were performed. All CT scans at this facility use dose modulation, iterative reconstruction, and/or weight based dosing when appropriate to reduce radiation dose to as low as reasonably achievable. COMPARISON: CT pulmonary angiogram of the chest September 17, 2017 FINDINGS: Chest: Vascular: No evidence of pulmonary embolism. Thoracic aorta is of normal caliber. No aneurysm or dissection. Lungs: Lungs are clear. No focal consolidation. No groundglass opacification. There are scattered 2 to 3 mm pulmonary nodules seen predominantly in the left upper lobe and the right mid lung. These are all stable. No new pulmonary nodules or masses. No pneumothorax or pleural effusion. Mediastinum: Heart size is within normal limits. No mediastinal or hilar lymphadenopathy. There is a small amount of soft tissue in the anterior mediastinum which is unchanged and most likely represents residual thymic tissue. Bones and soft tissues: Unremarkable Upper Abdomen: Visualized portion of the upper abdomen is unremarkable. IMPRESSION: 1. No pulmonary embolism. 2. No acute process is seen in the chest. Overall the appearance is stable.
[2019-08-18 00:45] VITALS: BP 140/97
--- NOTE | 2019-08-18 08:29 | EKG REPORT ---
SEVERITY:- ABNORMAL ECG - SINUS RHYTHM PROBABLE LEFT VENTRICULAR HYPERTROPHY : Confirmed by: Carlos Gutierrez 18-Aug-2019 08:29:06
--- NOTE | 2019-08-18 08:29 | EKG REPORT ---
SEVERITY:- ABNORMAL ECG - SINUS RHYTHM CONSIDER LEFT VENTRICULAR HYPERTROPHY BORDERLINE T ABNORMALITIES, INFERIOR LEADS : Confirmed by: Carlos Gutierrez 18-Aug-2019 08:29:00
== END 2019-08-18 00:45 | disposition home or self-care (01) ==
LOC: ER 19:26
DX: R07.89 Other chest pain (principal); I11.9 Hypertensive heart disease without heart failure; T46.1X6A Underdosing of calcium-channel blockers, initial encounter; Z91.128 Patient's intentional underdosing of medication regimen for other reason; Z91.14 Patient's other noncompliance with medication regimen; M32.9 Systemic lupus erythematosus, unspecified; E11.9 Type 2 diabetes mellitus without complications; F17.210 Nicotine dependence, cigarettes, uncomplicated; E66.9 Obesity, unspecified; J45.909 Unspecified asthma, uncomplicated; R56.9 Unspecified convulsions; Z79.899 Other long term (current) drug therapy; Z88.8 Allergy status to other drugs, medicaments and biological substances; Z91.018 Allergy to other foods; Z91.010 Allergy to peanuts; Z82.49 Family history of ischemic heart disease and other diseases of the circulatory system
CPT/HCPCS: 93005; 99285; 36415; 82962; 83735; 85025; 85610; 85730; 80053; 81001; 84484; 80307; 85379; 71045; 71275; 93010; J3490

== ENCOUNTER 2019-09-24 17:58 | Emergency (ER) | payer SELFPAY ==
[2019-09-24] MEDS ORDERED: IBUPROFEN 800 MG TABLET PO ONE (18:15)
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
[2019-09-24 18:56] LABS: ABSOLUTE EOSINOPHILS # (AUTO) 0.3 10^3/uL (0.0-0.6); ABSOLUTE LYMPHOCYTES (AUTO) 1.9 10^3/uL (0.5-4.7); ABSOLUTE MONOCYTES (AUTO) 0.4 10^3/uL (0.1-1.4); ABSOLUTE NEUT (AUTO) 3.3 10^3/uL (1.7-8.2); BASOPHILS % (AUTO) 0.8 % (0-2); EOSINOPHILS % (AUTO) 5.6 % (0-6); HEMATOCRIT 36.5 % (36.0-47.0); HEMOGLOBIN 12.4 g/dL (12.0-15.5); MEAN CORPUSCULAR HEMOGLOBIN 28.1 pg (27.0-33.4); MEAN CORPUSCULAR HGB CONC 33.9 g/dL (32.0-36.0); MEAN CORPUSCULAR VOLUME 83 fl (80-97); MONOCYTES % (AUTO) 6.1 % (3-13); PLATELET COUNT 255 10^3/uL (150-450); RED CELL DISTRIBUTION WIDTH 17.1 % (11.5-14.0); SEGMENTED NEUTROPHILS % (AUTO) 55.5 % (42-78); TOTAL CELLS COUNTED % (AUTO) 100 %
[2019-09-24 19:04] LABS: APPEARANCE,URINE CLEAR; BILIRUBIN,URINE NEGATIVE (NEGATIVE); COLOR,URINE YELLOW; GLUCOSE, URINE NEGATIVE (NEGATIVE); KETONES,URINE NEGATIVE (NEGATIVE); LEUKOCYTE ESTERASE,URINE NEGATIVE (NEGATIVE); NITRITE,URINE NEGATIVE (NEGATIVE); PROTEIN,URINE >=500 mg/dL (NEGATIVE); URINE SPECIFIC GRAVITY 1.025; UROBILINOGEN,URINE NEGATIVE mg/dL (<2.0)
[2019-09-24 19:18] LABS: ALBUMIN 2.5 g/dL (3.5-5.0); ALKALINE PHOSPHATASE 68 U/L (38-126); ASPARTATE AMINO TRANSFERASE 25 U/L (14-36); BILIRUBIN,TOTAL 0.2 mg/dL (0.2-1.3); BLOOD UREA NITROGEN 17 mg/dL (7-20); CALCIUM 8.4 mg/dL (8.4-10.2); GLUCOSE 103 mg/dL (75-110); POTASSIUM 4.1 mmol/L (3.6-5.0); TOTAL PROTEIN 5.2 g/dL (6.3-8.2)
[2019-09-24 19:23] LABS: CARBON DIOXIDE 27 mmol/L (22-30); CHLORIDE 106 mmol/L (98-107)
--- NOTE | 2019-09-24 19:24 | RADIOLOGY REPORT (SQ) ---
EXAM DESCRIPTION: U/S NON OB PEL TV W/DOPPLER IMAGES COMPLETED DATE/TIME: 09/24/2019 7:10 pm REASON FOR STUDY: left side pelvic pain COMPARISON: None. TECHNIQUE: Dynamic and static grayscale images acquired of the pelvis via transvaginal approach and recorded on PACS. Additional selected color Doppler and spectral images recorded. LIMITATIONS: None. FINDINGS: UTERUS: Contour normal. No mass. ENDOMETRIAL STRIPE: No focal or generalized thickening. No masses. CERVIX: No nabothian cysts. RIGHT OVARY AND DOPPLER: Normal size. No worrisome masses. Normal arterial vascular flow without evid ence for torsion. LEFT OVARY AND DOPPLER: Ovary not visualized. FREE FLUID: Fluid in the cul sac. OTHER: No other significant finding. MEASUREMENTS: UTERUS: 9.9 cm ENDOMETRIAL STRIPE: 5.5 mm RIGHT OVARY: 2.8 cm LEFT OVARY: Not visualized. IMPRESSION: Left ovary not visualized. Fluid in the posterior cul de sac. Otherwise normal. TECHNICAL DOCUMENTATION: JOB ID: [id number] 2010 [employer]- All Rights Reserved Rev-10/03 Reading location - IP/workstation name: [email or web address]
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
[2019-09-24 19:31] LABS: ANION GAP 0 (5-19)
[2019-09-24 20:30] LABS: CHLAM PCR NOT DETECTED (NOT DETECT)
[2019-09-24 20:33] LABS: T.VAGINALIS (WET MOUNT) NO TRICHOMONAS SEEN
[2019-09-24 20:34] LABS: BACTERIA (WET MOUNT) 3+ BACTERIA SEEN; EPITHELIALS (WET MOUNT) 4+ EPITHELIALS SEEN; RBCS (WET MOUNT) RARE RBCS SEEN; WBCS (WET MOUNT) FEW WBCS SEEN; YEAST (WET MOUNT) NO YEAST SEEN
[2019-09-24] MEDS ORDERED: IBUPROFEN 600 MG TABLET PO ONE (20:46)
[2019-09-24] MEDS ORDERED: METRONIDAZOLE 500 MG TABLET PO ONE (20:46)
[2019-09-24 20:59] VITALS: BP 186/126
== END 2019-09-24 21:09 | disposition home or self-care (01) ==
LOC: ER 17:58
DX: N76.0 Acute vaginitis (principal); B96.89 Other specified bacterial agents as the cause of diseases classified elsewhere; R10.2 Pelvic and perineal pain; R11.0 Nausea; I10 Essential (primary) hypertension; E11.9 Type 2 diabetes mellitus without complications; Z86.14 Personal history of Methicillin resistant Staphylococcus aureus infection; Z98.51 Tubal ligation status
CPT/HCPCS: 36415; 76830; 80053; 81001; 84703; 85025; 87210; 87491; 87591; 93976; 99284

== ENCOUNTER 2020-01-03 18:04 | Emergency (ER) | payer SELFPAY ==
[2020-01-03 18:27] VITALS: BP 162/120
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
== END 2020-01-03 18:32 | disposition home or self-care (01) ==
LOC: ER 18:04
DX: H92.02 Otalgia, left ear (principal); R09.89 Other specified symptoms and signs involving the circulatory and respiratory systems; I10 Essential (primary) hypertension; J45.909 Unspecified asthma, uncomplicated; E11.9 Type 2 diabetes mellitus without complications; F12.10 Cannabis abuse, uncomplicated; F17.210 Nicotine dependence, cigarettes, uncomplicated; Z79.899 Other long term (current) drug therapy; Z88.8 Allergy status to other drugs, medicaments and biological substances; Z91.018 Allergy to other foods; Z91.010 Allergy to peanuts
CPT/HCPCS: 99282

== ENCOUNTER 2020-01-05 00:31 | Emergency (ER) | payer SELFPAY ==
[2020-01-05 03:11] LABS: ABSOLUTE BASOPHILS # (AUTO) 0.1 10^3/uL (0.0-0.2); ABSOLUTE EOSINOPHILS # (AUTO) 0.4 10^3/uL (0.0-0.6); ABSOLUTE LYMPHOCYTES (AUTO) 1.3 10^3/uL (0.5-4.7); ABSOLUTE MONOCYTES (AUTO) 0.6 10^3/uL (0.1-1.4); ABSOLUTE NEUT (AUTO) 5.9 10^3/uL (1.7-8.2); BASOPHILS % (AUTO) 0.7 % (0-2); EOSINOPHILS % (AUTO) 4.4 % (0-6); HEMATOCRIT 40.3 % (36.0-47.0); HEMOGLOBIN 13.7 g/dL (12.0-15.5); LYMPHOCYTES % (AUTO) 15.7 % (13-45); MEAN CORPUSCULAR HEMOGLOBIN 28.3 pg (27.0-33.4); MEAN CORPUSCULAR VOLUME 83 fl (80-97); MONOCYTES % (AUTO) 7.1 % (3-13); PLATELET COUNT 289 10^3/uL (150-450); RED BLOOD COUNT 4.84 10^6/uL (3.72-5.28); RED CELL DISTRIBUTION WIDTH 16.7 % (11.5-14.0); SEGMENTED NEUTROPHILS % (AUTO) 72.1 % (42-78); TOTAL CELLS COUNTED % (AUTO) 100 %; WHITE BLOOD COUNT 8.1 10^3/uL (4.0-10.5)
[2020-01-05 03:37] LABS: ALBUMIN 2.3 g/dL (3.5-5.0); ALKALINE PHOSPHATASE 64 U/L (38-126); ANION GAP 5 (5-19); ASPARTATE AMINO TRANSFERASE 21 U/L (14-36); BILIRUBIN,TOTAL 0.2 mg/dL (0.2-1.3); BLOOD UREA NITROGEN 12 mg/dL (7-20); CALCIUM 8.3 mg/dL (8.4-10.2); CARBON DIOXIDE 25 mmol/L (22-30); CHLORIDE 109 mmol/L (98-107); GLUCOSE 110 mg/dL (75-110); POTASSIUM 4.4 mmol/L (3.6-5.0); TOTAL PROTEIN 5.2 g/dL (6.3-8.2)
[2020-01-05 04:07] LABS: APPEARANCE,URINE CLOUDY; BILIRUBIN,URINE NEGATIVE (NEGATIVE); COLOR,URINE YELLOW; GLUCOSE, URINE 50 mg/dL (NEGATIVE); KETONES,URINE NEGATIVE (NEGATIVE); LEUKOCYTE ESTERASE,URINE NEGATIVE (NEGATIVE); NITRITE,URINE NEGATIVE (NEGATIVE); PROTEIN,URINE >=500 mg/dL (NEGATIVE); URINE SPECIFIC GRAVITY 1.035; UROBILINOGEN,URINE NEGATIVE mg/dL (<2.0)
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
[2020-01-05] MEDS ORDERED: ACETAMINOPHEN 325 MG TABLET PO ONE (05:44)
[2020-01-05 05:49] LABS: URINE AMPHETAMINES SCREEN NEGATIVE; URINE BARBITURATES SCREEN NEGATIVE; URINE BENZODIAZEPINES SCREEN NEGATIVE; URINE METHADONE SCREEN NEGATIVE; URINE PHENCYCLIDINE SCREEN NEGATIVE
[2020-01-05 05:51] LABS: URINE COCAINE SCREEN UNCONFIRMED POSITIVE; URINE MARIJUANA (THC) SCREEN UNCONFIRMED POSITIVE
[2020-01-05 06:07] VITALS: BP 163/124
== END 2020-01-05 06:10 | disposition home or self-care (01) ==
LOC: ER 00:31
DX: J06.9 Acute upper respiratory infection, unspecified (principal); I10 Essential (primary) hypertension; R50.9 Fever, unspecified; R09.81 Nasal congestion; H92.09 Otalgia, unspecified ear; R05 Cough; Z20.828 Contact with and (suspected) exposure to other viral communicable diseases; Z88.8 Allergy status to other drugs, medicaments and biological substances; F17.200 Nicotine dependence, unspecified, uncomplicated; J45.909 Unspecified asthma, uncomplicated; E11.9 Type 2 diabetes mellitus without complications
CPT/HCPCS: 99283; 36415; 87086; 83690; 85025; 87635; 81025; 80053; 81001; 80307; C9803

== ENCOUNTER 2020-02-11 12:56 | Emergency (ER) | payer SELFPAY ==
[2020-02-11 13:02] VITALS: BP 155/130
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
[2020-02-11 14:14] LABS: ABSOLUTE EOSINOPHILS # (AUTO) 0.4 10^3/uL (0.0-0.6); ABSOLUTE LYMPHOCYTES (AUTO) 2.2 10^3/uL (0.5-4.7); ABSOLUTE MONOCYTES (AUTO) 0.4 10^3/uL (0.1-1.4); ABSOLUTE NEUT (AUTO) 2.4 10^3/uL (1.7-8.2); BASOPHILS % (AUTO) 0.7 % (0-2); EOSINOPHILS % (AUTO) 8.2 % (0-6); HEMATOCRIT 35.4 % (36.0-47.0); HEMOGLOBIN 12.3 g/dL (12.0-15.5); LYMPHOCYTES % (AUTO) 40.3 % (13-45); MEAN CORPUSCULAR HEMOGLOBIN 28.7 pg (27.0-33.4); MEAN CORPUSCULAR HGB CONC 34.7 g/dL (32.0-36.0); MEAN CORPUSCULAR VOLUME 83 fl (80-97); MONOCYTES % (AUTO) 7.2 % (3-13); PLATELET COUNT 275 10^3/uL (150-450); RED BLOOD COUNT 4.29 10^6/uL (3.72-5.28); RED CELL DISTRIBUTION WIDTH 17.2 % (11.5-14.0); SEGMENTED NEUTROPHILS % (AUTO) 43.6 % (42-78); TOTAL CELLS COUNTED % (AUTO) 100 %; WHITE BLOOD COUNT 5.4 10^3/uL (4.0-10.5)
[2020-02-11 14:19] LABS: APPEARANCE,URINE SLIGHTLY-CLOUDY; BILIRUBIN,URINE NEGATIVE (NEGATIVE); COLOR,URINE YELLOW; GLUCOSE, URINE 50 mg/dL (NEGATIVE); KETONES,URINE NEGATIVE (NEGATIVE); LEUKOCYTE ESTERASE,URINE NEGATIVE (NEGATIVE); NITRITE,URINE NEGATIVE (NEGATIVE); PROTEIN,URINE >=500 mg/dL (NEGATIVE); UROBILINOGEN,URINE NEGATIVE mg/dL (<2.0)
[2020-02-11 14:35] LABS: ALBUMIN 1.8 g/dL (3.5-5.0); ALKALINE PHOSPHATASE 57 U/L (38-126); ASPARTATE AMINO TRANSFERASE 25 U/L (14-36); BILIRUBIN,DIRECT 0.1 mg/dL (0.0-0.4); BILIRUBIN,TOTAL 0.2 mg/dL (0.2-1.3); BLOOD UREA NITROGEN 10 mg/dL (7-20); CALCIUM 7.6 mg/dL (8.4-10.2); CARBON DIOXIDE 25 mmol/L (22-30); CHLORIDE 110 mmol/L (98-107); GLUCOSE 109 mg/dL (75-110); POTASSIUM 3.6 mmol/L (3.6-5.0)
[2020-02-11 15:09] LABS: ANION GAP 0 (5-19)
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
--- NOTE | 2020-02-11 18:21 | RADIOLOGY REPORT (SQ) ---
EXAM DESCRIPTION: CT ABD/PELVIS WITH IV ONLY IMAGES COMPLETED DATE/TIME: 02/11/2020 6:00 pm REASON FOR STUDY: abdominal pain and swelling COMPARISON: None. TECHNIQUE: CT scan of the abdomen and pelvis performed using helical scanning technique with dynamic intravenous contrast injection. No oral contrast. Images reviewed with lung, soft tissue, and bone windows. Reconstructed coronal and sagittal MPR images reviewed. Delayed images for evaluation of the urinary system also acquired. All images stored on PACS. All CT scanners at this facility use dose modulation, iterative reconstruction, and/or weight based d osing when appropriate to reduce radiation dose to as low as reasonably achievable (ALARA). [facility]: Dose Right [facility]: CareDose [facility]: Dose Right [facility]: Teradose 4D [facility]: ConnXus CONTRAST TYPE AND DOSE: contrast/concentration: Isovue 350.00 mmol/ml; Total Contrast Delivered: 100 .0 ml; Total Saline Delivered: 62.0 ml RENAL FUNCTION: BUN 10 creatinine 1.01 RADIATION DOSE: CT Rad equipment meets quality standard of care and radiation dose reduction techniq ues were employed. CTDIvol: 16.1 - 19.1 mGy. DLP: 1836 mGy-cm.. LIMITATIONS: None. FINDINGS: LOWER CHEST: No significant findings. No nodules or infiltrates. LIVER: Normal size. No masses. No dilated ducts. SPLEEN: The spleen is prominent but not grossly enlarged. PANCREAS: No masses. No significant calcifications. No adjacent inflammation or peripancreatic fluid collections. Pancreatic duct not dilated. GALLBLADDER: No identified stones by CT criteria. No inflammatory changes to suggest cholecystitis. ADRENAL GLANDS: No significant masses or asymmetry. RIGHT KIDNEY AND URETER: No solid masses. No significant calcifications. No hydronephrosis or hyd roureter. LEFT KIDNEY AND URETER: No solid masses. No significant calcifications. No hydronephrosis or hydr oureter. AORTA AND VESSELS: No aneurysm. No dissection. Renal arteries, SMA, celiac without stenosis. RETROPERITONEUM: No retroperitoneal adenopathy, hemorrhage or masses. BOWEL AND PERITONEAL CAVITY: No masses or inflammatory changes. No free fluid or peritoneal masses. APPENDIX: Not identified. PELVIS: Small amount of free fluid in the pelvis. Urinary bladder is unremarkable. No pelvic mass. 2 cm left adnexal cyst. ABDOMINAL WALL: No masses. No hernias. There is subcutaneous edema. BONES: No significant or acute findings. OTHER: No other significant finding. IMPRESSION: 1. Prominent spleen. 2. Small amount of free fluid in the pelvis. 2 cm left ovarian cyst that is almost certainly benign . No additional imaging is required for this. 3. Subcutaneous edema. TECHNICAL DOCUMENTATION: JOB ID: [id number] Quality ID # [id number]: Final reports with documentation of one or more dose reduction techniques (e.g., Au tomated exposure control, adjustment of the mA and/or kV according to patient size, use of iterative reconstruction technique) 2010 [employer]- All Rights Reserved Reading location - IP/workstation name: [email or web address]
[2020-02-11] MEDS ORDERED: FUROSEMIDE INJ/PF 20 MG/2 ML SDV IV ONE (18:40)
--- NOTE | 2020-02-11 18:59 | RADIOLOGY REPORT (SQ) ---
EXAM DESCRIPTION: CHEST SINGLE VIEW IMAGES COMPLETED DATE/TIME: 02/11/2020 6:45 pm REASON FOR STUDY: CHF COMPARISON: 08/17/2019 EXAM PARAMETERS: NUMBER OF VIEWS: One view. TECHNIQUE: Single frontal radiographic view of the chest acquired. RADIATION DOSE: NA LIMITATIONS: None. FINDINGS: LUNGS AND PLEURA: No opacities, masses or pneumothorax. No pleural effusion. MEDIASTINUM AND HILAR STRUCTURES: No masses. Contour normal. HEART AND VASCULAR STRUCTURES: Heart normal in size. Normal vasculature. BONES: No acute findings. HARDWARE: None in the chest. OTHER: No other significant finding. IMPRESSION: NO ACUTE RADIOGRAPHIC FINDING IN THE CHEST. TECHNICAL DOCUMENTATION: JOB ID: [id number] 2010 [employer]- All Rights Reserved Reading location - IP/workstation name: [email or web address]
== END 2020-02-11 19:31 | disposition left against medical advice (07) ==
LOC: ER 12:56
DX: R60.9 Edema, unspecified (principal); N83.202 Unspecified ovarian cyst, left side; R10.819 Abdominal tenderness, unspecified site; R10.30 Lower abdominal pain, unspecified; R14.0 Abdominal distension (gaseous); E87.1 Hypo-osmolality and hyponatremia; R20.0 Anesthesia of skin; R79.89 Other specified abnormal findings of blood chemistry; J45.909 Unspecified asthma, uncomplicated; I10 Essential (primary) hypertension; E11.9 Type 2 diabetes mellitus without complications; M79.606 Pain in leg, unspecified; Z88.8 Allergy status to other drugs, medicaments and biological substances; Z91.010 Allergy to peanuts; Z91.018 Allergy to other foods; Z53.29 Procedure and treatment not carried out because of patient's decision for other reasons
CPT/HCPCS: 99285; 96374; 36415; 83690; 85025; 81025; 80053; 81001; 84484; 83880; 71045; 74177; J1940

== ENCOUNTER 2020-02-13 10:34 | Emergency (ER) | payer SELFPAY ==
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
--- NOTE | 2020-02-13 12:16 | RADIOLOGY REPORT (SQ) ---
EXAM DESCRIPTION: CHEST 2 VIEWS IMAGES COMPLETED DATE/TIME: 02/13/2020 11:52 am REASON FOR STUDY: SOB, chest pain, leg swelling COMPARISON: 02/11/2020 TECHNIQUE: Frontal and lateral radiographic views of the chest acquired. NUMBER OF VIEWS: Two view. LIMITATIONS: None. FINDINGS: LUNGS AND PLEURA: No pneumothorax. No consolidation or pleural effusion. MEDIASTINUM AND HILAR STRUCTURES: Stable. HEART AND VASCULAR STRUCTURES: Stable. BONES: No acute findings. HARDWARE: None in the chest. OTHER: No other significant finding. IMPRESSION: NO ACUTE FINDINGS. TECHNICAL DOCUMENTATION: JOB ID: [id number]-72 2010 [employer]- All Rights Reserved Reading location - IP/workstation name: [email or web address]
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
[2020-02-13] MEDS ORDERED: MORPHINE SULFATE 10 MG/ML INJ IV ONE (12:25)
[2020-02-13] MEDS ORDERED: FUROSEMIDE INJ/PF 20 MG/2 ML SDV IV ONE (12:25)
[2020-02-13 12:29] LABS: INTERNATIONAL RATION (INR) 0.84; PROTHROMBIN TIME 11.8 SEC (11.4-15.4)
[2020-02-13 12:30] LABS: PARTIAL THROMBOPLASTIN TIME 37.9 SEC (23.5-35.8)
[2020-02-13 12:31] LABS: ABSOLUTE BASOPHILS # (AUTO) 0.1 10^3/uL (0.0-0.2); ABSOLUTE EOSINOPHILS # (AUTO) 0.4 10^3/uL (0.0-0.6); ABSOLUTE LYMPHOCYTES (AUTO) 1.8 10^3/uL (0.5-4.7); ABSOLUTE MONOCYTES (AUTO) 0.5 10^3/uL (0.1-1.4); ABSOLUTE NEUT (AUTO) 4.5 10^3/uL (1.7-8.2); BASOPHILS % (AUTO) 0.9 % (0-2); EOSINOPHILS % (AUTO) 5.6 % (0-6); HEMOGLOBIN 13.3 g/dL (12.0-15.5); LYMPHOCYTES % (AUTO) 24.6 % (13-45); MEAN CORPUSCULAR HEMOGLOBIN 28.7 pg (27.0-33.4); MEAN CORPUSCULAR VOLUME 82 fl (80-97); MONOCYTES % (AUTO) 7.5 % (3-13); PLATELET COUNT 291 10^3/uL (150-450); RED BLOOD COUNT 4.63 10^6/uL (3.72-5.28); RED CELL DISTRIBUTION WIDTH 16.8 % (11.5-14.0); SEGMENTED NEUTROPHILS % (AUTO) 61.4 % (42-78); TOTAL CELLS COUNTED % (AUTO) 100 %; WHITE BLOOD COUNT 7.3 10^3/uL (4.0-10.5)
[2020-02-13 12:49] LABS: ALKALINE PHOSPHATASE 59 U/L (38-126); ASPARTATE AMINO TRANSFERASE 31 U/L (14-36); BILIRUBIN,DIRECT 0.1 mg/dL (0.0-0.4); BILIRUBIN,TOTAL 0.3 mg/dL (0.2-1.3); BLOOD UREA NITROGEN 12 mg/dL (7-20); CALCIUM 8.2 mg/dL (8.4-10.2); GLUCOSE 96 mg/dL (75-110); TOTAL PROTEIN 4.6 g/dL (6.3-8.2)
[2020-02-13 12:56] LABS: CARBON DIOXIDE 24 mmol/L (22-30); CHLORIDE 109 mmol/L (98-107); POTASSIUM 3.8 mmol/L (3.6-5.0)
[2020-02-13 13:01] LABS: TROPONIN I 0.017 ng/mL
[2020-02-13 16:12] VITALS: BP 170/129
--- NOTE | 2020-02-13 20:24 | EKG REPORT ---
SEVERITY:- ABNORMAL ECG - SINUS RHYTHM CONSIDER LEFT VENTRICULAR HYPERTROPHY : Confirmed by: Olive Chowdhury MD 13-Feb-2020 20:23:42
== END 2020-02-13 16:30 | disposition home or self-care (01) ==
LOC: ER 10:34
DX: R60.9 Edema, unspecified (principal); M79.605 Pain in left leg; M79.604 Pain in right leg; R79.89 Other specified abnormal findings of blood chemistry; F17.200 Nicotine dependence, unspecified, uncomplicated; E11.9 Type 2 diabetes mellitus without complications; Z86.14 Personal history of Methicillin resistant Staphylococcus aureus infection; Z79.82 Long term (current) use of aspirin; Z91.010 Allergy to peanuts
CPT/HCPCS: 93005; 99285; 96374; 96375; 36415; 83735; 85025; 85610; 85730; 80053; 84484; 83880; 71046; 93010; J1940; J2270

== ENCOUNTER 2020-02-25 12:51 | Emergency (ER) | payer SELFPAY ==
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
[2020-02-25 14:10] LABS: ABSOLUTE BASOPHILS # (AUTO) 0.1 10^3/uL (0.0-0.2); ABSOLUTE EOSINOPHILS # (AUTO) 0.4 10^3/uL (0.0-0.6); ABSOLUTE MONOCYTES (AUTO) 0.3 10^3/uL (0.1-1.4); ABSOLUTE NEUT (AUTO) 2.3 10^3/uL (1.7-8.2); BASOPHILS % (AUTO) 1.1 % (0-2); EOSINOPHILS % (AUTO) 8.7 % (0-6); HEMATOCRIT 37.6 % (36.0-47.0); HEMOGLOBIN 12.9 g/dL (12.0-15.5); LYMPHOCYTES % (AUTO) 38.2 % (13-45); MEAN CORPUSCULAR HEMOGLOBIN 28.5 pg (27.0-33.4); MEAN CORPUSCULAR HGB CONC 34.4 g/dL (32.0-36.0); MEAN CORPUSCULAR VOLUME 83 fl (80-97); MONOCYTES % (AUTO) 6.5 % (3-13); PLATELET COUNT 290 10^3/uL (150-450); RED BLOOD COUNT 4.53 10^6/uL (3.72-5.28); RED CELL DISTRIBUTION WIDTH 16.6 % (11.5-14.0); SEGMENTED NEUTROPHILS % (AUTO) 45.5 % (42-78); TOTAL CELLS COUNTED % (AUTO) 100 %; WHITE BLOOD COUNT 5.2 10^3/uL (4.0-10.5)
--- NOTE | 2020-02-25 14:17 | RADIOLOGY REPORT (SQ) ---
EXAM DESCRIPTION: CHEST SINGLE VIEW IMAGES COMPLETED DATE/TIME: 02/25/2020 1:55 pm REASON FOR STUDY: Peripheral edema COMPARISON: Chest films 02/13/2020 EXAM PARAMETERS: NUMBER OF VIEWS: One view. TECHNIQUE: Single frontal radiographic view of the chest acquired. RADIATION DOSE: NA LIMITATIONS: None. FINDINGS: LUNGS AND PLEURA: No opacities, masses or pneumothorax. No pleural effusion. MEDIASTINUM AND HILAR STRUCTURES: No masses. Contour normal. HEART AND VASCULAR STRUCTURES: Heart normal in size. Normal vasculature. BONES: No acute findings. HARDWARE: None in the chest. OTHER: No other significant finding. IMPRESSION: NO ACUTE RADIOGRAPHIC FINDING IN THE CHEST. TECHNICAL DOCUMENTATION: JOB ID: [id number] 2010 [employer]- All Rights Reserved Reading location - IP/workstation name: [email or web address]
--- NOTE | 2020-02-25 14:18 | RADIOLOGY REPORT (SQ) ---
EXAM DESCRIPTION: FOOT RIGHT COMPLETE IMAGES COMPLETED DATE/TIME: 02/25/2020 1:55 pm REASON FOR STUDY: felt pop, r foot pain, hx edema COMPARISON: None. NUMBER OF VIEWS: Three views. TECHNIQUE: AP, lateral and oblique radiographic images acquired of the right foot. LIMITATIONS: None. FINDINGS: MINERALIZATION: Normal. BONES: No acute fracture or dislocation. No worrisome bone lesions. JOINTS: No effusions. SOFT TISSUES: Diffuse dorsal forefoot soft tissue swelling. No foreign body. OTHER: No other significant finding. IMPRESSION: Diffuse dorsal forefoot soft tissue swelling. No fracture. No malalignment. TECHNICAL DOCUMENTATION: JOB ID: [id number] 2010 [employer]- All Rights Reserved Reading location - IP/workstation name: [email or web address]
[2020-02-25 14:27] LABS: APPEARANCE,URINE SLIGHTLY-CLOUDY; BILIRUBIN,URINE NEGATIVE (NEGATIVE); COLOR,URINE YELLOW; GLUCOSE, URINE NEGATIVE (NEGATIVE); KETONES,URINE NEGATIVE (NEGATIVE); LEUKOCYTE ESTERASE,URINE NEGATIVE (NEGATIVE); NITRITE,URINE NEGATIVE (NEGATIVE); PROTEIN,URINE >=500 mg/dL (NEGATIVE); UROBILINOGEN,URINE NEGATIVE mg/dL (<2.0)
[2020-02-25 15:18] LABS: ALBUMIN 1.9 g/dL (3.5-5.0); ALKALINE PHOSPHATASE 57 U/L (38-126); ASPARTATE AMINO TRANSFERASE 28 U/L (14-36); BILIRUBIN,DIRECT 0.1 mg/dL (0.0-0.4); BILIRUBIN,TOTAL 0.2 mg/dL (0.2-1.3); BLOOD UREA NITROGEN 12 mg/dL (7-20); CARBON DIOXIDE 23 mmol/L (22-30); CHLORIDE 108 mmol/L (98-107); GLUCOSE 142 mg/dL (75-110); POTASSIUM 4.1 mmol/L (3.6-5.0); TOTAL PROTEIN 4.3 g/dL (6.3-8.2)
[2020-02-25 15:19] LABS: ANION GAP 1 (5-19)
[2020-02-25] MEDS ORDERED: ISOSORBIDE MONONITRATE 30 MG TAB.ER.24H PO ONE (16:52)
[2020-02-25] MEDS ORDERED: HYDROCODONE/ACETAMINOPHEN 5-325 MG (6 TAB/ER DISP) PO PRN (16:53)
[2020-02-25 16:57] VITALS: BP 176/131
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
== END 2020-02-25 17:30 | disposition home or self-care (01) ==
LOC: ER 12:51
DX: E87.70 Fluid overload, unspecified (principal); I10 Essential (primary) hypertension; R60.0 Localized edema; E11.9 Type 2 diabetes mellitus without complications; J45.909 Unspecified asthma, uncomplicated; Z79.899 Other long term (current) drug therapy; Z88.8 Allergy status to other drugs, medicaments and biological substances; Z91.038 Other insect allergy status; Z91.018 Allergy to other foods; Z91.010 Allergy to peanuts
CPT/HCPCS: 36415; 71045; 80053; 81001; 83690; 83735; 83880; 84703; 85025; 99284

== ENCOUNTER 2020-03-01 00:05 | Inpatient (IN) | payer SELFPAY ==
[2020-03-01] MEDS ORDERED: PROPOFOL INJ 200 MG/20 ML VIAL IV ONE ×2 (00:07→00:33)
[2020-03-01] MEDS ORDERED: DEXAMETHASONE SOD PHOS INJ 10 MG/1 ML VIAL IV ONE (00:16)
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
[2020-03-01] MEDS ORDERED: PROPOFOL 1,000 MG/100 ML INFUS..BTL IV PRN (00:23)
[2020-03-01] MEDS ORDERED: KETAMINE HCL INJ 500 MG/10 ML VIAL IV ONE (00:26)
[2020-03-01] MEDS: PROPOFOL 1,000 MG/100 ML INFUS..BTL IV PRN ×2 (00:29→05:15)
[2020-03-01] MEDS ORDERED: ONDANSETRON HCL INJ/PF 4 MG/2 ML SDV IV ONE (00:34)
--- NOTE | 2020-03-01 00:49 | RADIOLOGY REPORT (SQ) ---
EXAM DESCRIPTION: XR CHEST 1 VIEW COMPLETED DATE/TME: 03/01/2020 00:09 CLINICAL HISTORY: 30 years, Female, allergic intubated COMPARISON: 02/25/2020 chest NUMBER OF VIEWS: 1 TECHNIQUE: Portable chest LIMITATIONS: None. FINDINGS: Heart size normal. Endotracheal and enteric tubes are in appropriate position. Tip of the endotracheal tube is 1.7 cm above the chele Patchy airspace opacity in the left upper lobe. No pneumothorax IMPRESSION: Patchy left upper lobe airspace opacity. Endotracheal and enteric tubes in place copyright 2010 [employer]- All Rights Reserved
[2020-03-01] MEDS ORDERED: CEFTRIAXONE INJ 1000 MG VIAL IV ONE (00:56)
[2020-03-01 00:57] LABS: ARTERIAL BLOOD BASE EXCESS -6.1 mmol/L; ARTERIAL BLOOD HCO3 19.7 mmol/L (20-24); ARTERIAL BLOOD PH 7.31 (7.35-7.45); ARTERIAL BLOOD PO2 87.8 mmHg (80-100)
[2020-03-01] MEDS ORDERED: AZITHROMYCIN INJ 500 MG VIAL IV ONE (00:57)
[2020-03-01] MEDS ORDERED: ETOMIDATE INJ/PF 20 MG/10 ML SDV IV ONE (00:58)
[2020-03-01 01:01] LABS: ARTERIAL BLOOD FIO2 45%
[2020-03-01] MEDS ORDERED: NICARDIPINE HCL RTU, ISO-OS 20 MG/200 ML RTUINJ IV PRN (01:02)
[2020-03-01] MEDS ORDERED: MIDAZOLAM HCL 50 MG/100 ML RTUINJ IV PRN (01:16)
[2020-03-01] MEDS ORDERED: NORMAL SALINE 100 ML with VECURONIUM BROMIDE 10 MG IV PRN ×2 (01:25)
[2020-03-01 01:27] LABS: ABSOLUTE BASOPHILS # (AUTO) 0.1 10^3/uL (0.0-0.2); ABSOLUTE EOSINOPHILS # (AUTO) 0.5 10^3/uL (0.0-0.6); ABSOLUTE LYMPHOCYTES (AUTO) 2.8 10^3/uL (0.5-4.7); ABSOLUTE MONOCYTES (AUTO) 0.9 10^3/uL (0.1-1.4); ABSOLUTE NEUT (AUTO) 10.1 10^3/uL (1.7-8.2); BASOPHILS % (AUTO) 0.6 % (0-2); EOSINOPHILS % (AUTO) 3.4 % (0-6); HEMATOCRIT 42.5 % (36.0-47.0); HEMOGLOBIN 14.3 g/dL (12.0-15.5); LYMPHOCYTES % (AUTO) 19.5 % (13-45); MEAN CORPUSCULAR HEMOGLOBIN 28.2 pg (27.0-33.4); MEAN CORPUSCULAR HGB CONC 33.7 g/dL (32.0-36.0); MEAN CORPUSCULAR VOLUME 84 fl (80-97); MONOCYTES % (AUTO) 6.2 % (3-13); PLATELET COUNT 470 10^3/uL (150-450); RED BLOOD COUNT 5.08 10^6/uL (3.72-5.28); RED CELL DISTRIBUTION WIDTH 16.4 % (11.5-14.0); SEGMENTED NEUTROPHILS % (AUTO) 70.3 % (42-78); TOTAL CELLS COUNTED % (AUTO) 100 %; WHITE BLOOD COUNT 14.3 10^3/uL (4.0-10.5)
[2020-03-01] MEDS ORDERED: VECURONIUM BROMIDE INJ 10 MG VIAL IV ONE ×3 (01:27→02:41)
[2020-03-01 01:29] LABS: INTERNATIONAL RATION (INR) 0.84; PROTHROMBIN TIME 11.7 SEC (11.4-15.4)
[2020-03-01 01:31] LABS: URINE AMPHETAMINES SCREEN NEGATIVE; URINE BARBITURATES SCREEN NEGATIVE; URINE COCAINE SCREEN NEGATIVE; URINE METHADONE SCREEN NEGATIVE; URINE PHENCYCLIDINE SCREEN NEGATIVE
[2020-03-01 01:33] LABS: URINE BENZODIAZEPINES SCREEN UNCONFIRMED POSITIVE; URINE MARIJUANA (THC) SCREEN UNCONFIRMED POSITIVE
[2020-03-01] MEDS ORDERED: LABETALOL HCL INJ 20 MG/4 ML DISP.SYRIN IV ONE (01:41)
[2020-03-01 01:47] LABS: ALBUMIN 1.9 g/dL (3.5-5.0); ALKALINE PHOSPHATASE 57 U/L (38-126); ASPARTATE AMINO TRANSFERASE 37 U/L (14-36); BILIRUBIN,DIRECT 0.3 mg/dL (0.0-0.4); BILIRUBIN,TOTAL 0.5 mg/dL (0.2-1.3); BLOOD UREA NITROGEN 13 mg/dL (7-20); CALCIUM 7.8 mg/dL (8.4-10.2); CARBON DIOXIDE 18 mmol/L (22-30); GLUCOSE 134 mg/dL (75-110); POTASSIUM 3.9 mmol/L (3.6-5.0); TOTAL PROTEIN 4.6 g/dL (6.3-8.2); TRIGLYCERIDES 245 mg/dL (<150)
[2020-03-01 01:52] LABS: ANION GAP 6 (5-19); CHLORIDE 109 mmol/L (98-107)
[2020-03-01] MEDS ORDERED: GLUCAGON,HUMAN RECOMB 1 MG INJ SUBCUT PRN (02:43)
[2020-03-01] MEDS ORDERED: RINGERS SOLUTION,LACTATED 1,000 ML IV PRN (02:43)
[2020-03-01] MEDS ORDERED: DEXTROSE 50%-WATER 25 GM/50 ML DISP.SYRIN IV PRN ×2 (02:43)
[2020-03-01] MEDS ORDERED: DEXTROSE 40% GEL 15 GM TUBE PO PRN ×2 (02:43)
[2020-03-01] MEDS ORDERED: ACETAMINOPHEN 325 MG TABLET PO PRN (02:43)
[2020-03-01] MEDS ORDERED: LEVALBUTEROL HCL NEB 1.25 MG/3 ML AMPUL NEB PRN (02:43)
[2020-03-01] MEDS ORDERED: FAMOTIDINE INJ/PF 20 MG/2 ML SDV IV ONE ×2 (02:45→05:18)
[2020-03-01] MEDS ORDERED: LABETALOL HCL 200 MG TABLET PO ONE (02:45)
[2020-03-01 03:05] LABS: A TYPE INFLUENZA AG NEGATIVE (NEGATIVE); B INFLUENZA AG NEGATIVE (NEGATIVE)
[2020-03-01] MEDS ORDERED: HEPARIN SOD (PORCINE) 5,000 UNIT/ML 1 ML VIAL SUBCUT ONE (03:15)
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
[2020-03-01] MEDS ORDERED: AMPICILLIN SOD/SULBACTAM 3 GM VIAL IV ONE (03:44)
[2020-03-01] MEDS ORDERED: AMPICILLIN SOD/SULBACTAM 3 GM VIAL IV PRN (05:26)
[2020-03-01] MEDS: DEXAMETHASONE SOD PHOSPHATE INJ 4 MG/1 ML VIAL IV SCH ×4 (05:30→23:01)
[2020-03-01] MEDS ORDERED: AMPICILLIN SOD/SULBACTAM 3 GM VIAL IV SCH (06:00)
[2020-03-01] MEDS ORDERED: AMPICILLIN SODIUM/SULBACTAM NA 3 GM in NORMAL SALINE 100 ML IV SCH ×2 (06:00→09:00)
[2020-03-01 06:39] LABS: ARTERIAL BLOOD BASE EXCESS -4.5 mmol/L; ARTERIAL BLOOD H2CO3 1.07 mmol/L (1.05-1.35); ARTERIAL BLOOD HCO3 19.9 mmol/L (20-24); ARTERIAL BLOOD O2 SATURATION 99.3 % (94-98); ARTERIAL BLOOD PCO2 35.5 mmHg (35-45); ARTERIAL BLOOD PH 7.37 (7.35-7.45); ARTERIAL BLOOD PO2 188.4 mmHg (80-100)
[2020-03-01 06:40] LABS: ABSOLUTE LYMPHOCYTES (AUTO) 0.9 10^3/uL (0.5-4.7); ABSOLUTE MONOCYTES (AUTO) 0.2 10^3/uL (0.1-1.4); ABSOLUTE NEUT (AUTO) 14.7 10^3/uL (1.7-8.2); BASOPHILS % (AUTO) 0.2 % (0-2); EOSINOPHILS % (AUTO) 0.1 % (0-6); HEMOGLOBIN 15.5 g/dL (12.0-15.5); LYMPHOCYTES % (AUTO) 5.6 % (13-45); MEAN CORPUSCULAR HEMOGLOBIN 28.6 pg (27.0-33.4); MEAN CORPUSCULAR HGB CONC 34.4 g/dL (32.0-36.0); MEAN CORPUSCULAR VOLUME 83 fl (80-97); PLATELET COUNT 458 10^3/uL (150-450); RED BLOOD COUNT 5.42 10^6/uL (3.72-5.28); RED CELL DISTRIBUTION WIDTH 16.4 % (11.5-14.0); SEGMENTED NEUTROPHILS % (AUTO) 93.1 % (42-78); TOTAL CELLS COUNTED % (AUTO) 100 %; WHITE BLOOD COUNT 15.8 10^3/uL (4.0-10.5)
[2020-03-01 06:46] LABS: ARTERIAL BLOOD FIO2 45%
[2020-03-01 06:47] LABS: INTERNATIONAL RATION (INR) 0.87
[2020-03-01 06:53] LABS: ALBUMIN 2.2 g/dL (3.5-5.0); ALKALINE PHOSPHATASE 64 U/L (38-126); ANION GAP 6 (5-19); ASPARTATE AMINO TRANSFERASE 37 U/L (14-36); BILIRUBIN,DIRECT 0.5 mg/dL (0.0-0.4); BILIRUBIN,TOTAL 0.6 mg/dL (0.2-1.3); BLOOD UREA NITROGEN 14 mg/dL (7-20); CALCIUM 8.4 mg/dL (8.4-10.2); CARBON DIOXIDE 16 mmol/L (22-30); CHLORIDE 110 mmol/L (98-107); GLUCOSE 166 mg/dL (75-110); PHOSPHORUS 5.2 mg/dL (2.5-4.5); POTASSIUM 3.8 mmol/L (3.6-5.0); TOTAL PROTEIN 5.2 g/dL (6.3-8.2); TRIGLYCERIDES 228 mg/dL (<150)
[2020-03-01 07:02] LABS: CREATINE KINASE MB 3.55 ng/mL (<4.55)
[2020-03-01 07:08] LABS: TROPONIN I 0.187 ng/mL
[2020-03-01 07:11] LABS: CHOLESTEROL 576.28 mg/dL (0-200); VLDL CHOLESTEROL 45.6 mg/dL (10-31)
[2020-03-01 07:24] LABS: DIRECT LDL 386 mg/dL (<100)
--- NOTE | 2020-03-01 09:37 | Progress Note ---
Provider Note Provider Note: Patient was to be weaned and extubated today. She quickly woke up, grabbed her ETT and self extubated, ahead of planned extubation. Breathing well, no stridor, lungs clear. Anaphyaxis probably over. Plan to keep one more day for now. D/C simms. Feed later, OOB and likely downgrade later today.
[2020-03-01] MEDS: FAMOTIDINE INJ/PF 20 MG/2 ML SDV IV SCH ×2 (10:18→21:41)
[2020-03-01 10:31] LABS: CREATINE KINASE MB 3.05 ng/mL (<4.55); TROPONIN I 0.135 ng/mL
[2020-03-01] MEDS: BENZOCAINE/MENTHOL SORE THROAT LOZENGE BUCCAL PRN ×3 (12:38→22:59)
[2020-03-01] MEDS: HEPARIN SOD (PORCINE) 5,000 UNIT/ML 1 ML VIAL SUBCUT SCH ×2 (13:42→21:14)
[2020-03-01] MEDS ORDERED: LABETALOL HCL 200 MG TABLET PO SCH (14:00)
--- NOTE | 2020-03-01 14:56 | RADIOLOGY REPORT (SQ) ---
EXAM DESCRIPTION: CT HEAD WITHOUT IMAGES COMPLETED DATE/TIME: 03/01/2020 2:46 pm REASON FOR STUDY: RT SIDED WEAKNESS COMPARISON: 04/19/2019 TECHNIQUE: Axial images acquired through the brain without intravenous contrast. Images reviewed wi th bone, brain and subdural windows. Additional sagittal and coronal reconstructions were generated. Images stored on PACS. All CT scanners at this facility use dose modulation, iterative reconstruction, and/or weight based d osing when appropriate to reduce radiation dose to as low as reasonably achievable (ALARA). [facility]: Dose Right [facility]: CareDose [facility]: Dose Right [facility]: Teradose 4D [facility]: VHX RADIATION DOSE: CT Rad equipment meets quality standard of care and radiation dose reduction techniq ues were employed. CTDIvol: 48.6 mGy. DLP: 856 mGy-cm. mGy. LIMITATIONS: None. FINDINGS: VENTRICLES: Normal size and contour. CEREBRUM: No masses. No hemorrhage. No midline shift. No evidence for acute infarction. Normal gra y/white matter differentiation. No areas of low density in the white matter. CEREBELLUM: No masses. No hemorrhage. No alteration of density. No evidence for acute infarction. EXTRAAXIAL SPACES: No fluid collections. No masses. ORBITS AND GLOBE: No intra- or extraconal masses. Normal contour of globe without masses. CALVARIUM: No fracture. PARANASAL SINUSES: Mild frontal, maxillary, sphenoid and ethmoid air cell disease most likely chronic . SOFT TISSUES: No mass or hematoma. OTHER: No other significant finding. IMPRESSION: 1. No acute intracranial event. 2. Mild chronic appearing paranasal sinus disease. EVIDENCE OF ACUTE STROKE: NO. COMMENT: Quality ID # [id number]: Final reports with documentation of one or more dose reduction techniques (e.g., Automated exposure control, adjustment of the mA and/or kV according to patient size, use of iterative reconstruction technique) TECHNICAL DOCUMENTATION: JOB ID: [id number] 2010 [employer]- All Rights Reserved Reading location - IP/workstation name: [email or web address]
--- NOTE | 2020-03-01 18:45 | RADIOLOGY REPORT (SQ) ---
EXAM DESCRIPTION: MRI HEAD WITHOUT IMAGES COMPLETED DATE/TIME: 03/01/2020 5:32 pm REASON FOR STUDY: Possible new stroke. R sided findings. 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 Loss of right peripheral vision. Hypertension, diabetes. COMPARISON: CT head, Same date. TECHNIQUE: Multiplanar imaging includes non-contrasted T1, T2, FLAIR, and diffusion with ADC map seq uences. Images stored on PACS. LIMITATIONS: None. FINDINGS: ANATOMY: No anomalies. Normal vascular flow voids. Pituitary fossa normal. CSF SPACES: Normal in size and contour. No hemorrhage. CEREBRUM: Sulci and gyri normal in size and contour. Normal white matter signal on FLAIR imaging. No evidence of hemorrhage, mass, or extraaxial fluid collection. POSTERIOR FOSSA: No signal alteration. No hemorrhage. No edema, masses or mass effect. Internal stevan tory canals, cerebello-pontine angles, mastoids normal. DIFFUSION IMAGING: Negative for acute or sub-acute infarction. ORBITS: No masses. Globes normal. PARANASAL SINUSES: Minimal mucosal thickening in the right frontal sinus, inferior right maxillary s inus and posterior right sphenoid sinus. No air-fluid levels. OTHER: No other significant finding. IMPRESSION: 1. No acute ischemia, intracranial mass or mass effect, or evidence of intracranial hemorrhage. 2. Mild sinusitis. EVIDENCE OF ACUTE STROKE: NO. TECHNICAL DOCUMENTATION: JOB ID: [id number] 2010 [employer]- All Rights Reserved Reading location - IP/workstation name: [email or web address]
[2020-03-01] MEDS: CARVEDILOL 6.25 MG TABLET PO SCH (21:14)
[2020-03-01] MEDS ORDERED: ATORVASTATIN CALCIUM 80 MG TABLET PO SCH (22:00)
[2020-03-01] MEDS ORDERED: ASPIRIN 81 MG TABLET, CHEWABLE PO SCH (22:00)
--- NOTE | 2020-03-01 22:12 | EKG REPORT ---
SEVERITY:- BORDERLINE ECG - SINUS TACHYCARDIA BORDERLINE T WAVE ABNORMALITIES : Confirmed by: Carlos Gutierrez 01-Mar-2020 22:11:16
--- NOTE | 2020-03-01 22:12 | EKG REPORT ---
SEVERITY:- ABNORMAL ECG - SINUS TACHYCARDIA CONSIDER LEFT VENTRICULAR HYPERTROPHY : Confirmed by: Carlos Gutierrez 01-Mar-2020 22:11:20
[2020-03-01] MEDS: OXYCODONE-ACETAMINOPHEN 5-325 MG TABLET PO PRN (22:36)
[2020-03-02] MEDS: BENZOCAINE/MENTHOL SORE THROAT LOZENGE BUCCAL PRN (05:05)
[2020-03-02] MEDS: DEXAMETHASONE SOD PHOSPHATE INJ 4 MG/1 ML VIAL IV SCH (05:06)
[2020-03-02] MEDS: HEPARIN SOD (PORCINE) 5,000 UNIT/ML 1 ML VIAL SUBCUT SCH (05:06)
[2020-03-02 06:25] LABS: APPEARANCE,URINE CLOUDY; BILIRUBIN,URINE NEGATIVE (NEGATIVE); COLOR,URINE YELLOW; GLUCOSE, URINE 150 mg/dL (NEGATIVE); KETONES,URINE NEGATIVE (NEGATIVE); PROTEIN,URINE >=500 mg/dL (NEGATIVE); URINE SPECIFIC GRAVITY 1.034; UROBILINOGEN,URINE NEGATIVE mg/dL (<2.0)
[2020-03-02] MEDS: OXYCODONE-ACETAMINOPHEN 5-325 MG TABLET PO PRN (06:30)
[2020-03-02] MEDS ORDERED: FUROSEMIDE 20 MG TABLET PO SCH (08:00)
[2020-03-02] MEDS: CARVEDILOL 6.25 MG TABLET PO SCH (09:14)
[2020-03-02] MEDS: FAMOTIDINE INJ/PF 20 MG/2 ML SDV IV SCH (09:14)
[2020-03-02] MEDS ORDERED: POTASSIUM CHLORIDE 10 MEQ TABLET.ER PO SCH (10:00)
[2020-03-02 10:31] VITALS: BP 130/89
--- NOTE | 2020-03-02 15:13 | PDOC DISCHARGE SUMMARY ---
Impression - Admit/DC Date/PCP Admission Date/Primary Care Provider: 03/01/20 01:22 Discharge Date: 03/02/20 - Discharge Diagnosis (1) Angioedema Is this a current diagnosis for this admission?: Yes (2) Endotracheally intubated Is this a current diagnosis for this admission?: Yes (3) Hypertension Is this a current diagnosis for this admission?: Yes (4) Lupus Is this a current diagnosis for this admission?: Yes - Additional Information Resuscitation Status: Full Code Discharge Diet: Cardiac Discharge Activity: Activity As Tolerated, Slowly Increase Activity Referrals: [facility] [Provider Group] - 03/07/20 10:00 am Home Medications: Furosemide [Lasix 20 mg Tablet] 20 mg PO QAM #20 tablet 02/13/20 Potassium Chloride 10 meq PO DAILY #20 tablet.er 02/13/20 Albuterol Sulfate [Albuterol Sulfate Hfa] 2 puff IH Q6HP PRN 03/01/20 Carvedilol [Coreg 6.25 mg Tablet] 6.25 mg PO Q12 03/01/20 History of Present Illiness History of Present Illness: TANNER RAMIREZ is a 30 year old female who called EMS [facility] for difficulty breathing. Per the ER record the patient was fine upon EMS arrival and within 15 min their arrival she began to have severe resp distress requiring intubation. The patient does have medical history to include HTN,and gestational diabetes. Per the ER records she was started on a new BP meds and the exact name is unknown and she does have a documented allergy to lisinopril. Upon arrival to the ED the patient was very agitated and combative requiring high doses of sedation. The patient was hypertensive in the ED and was treated with IV lebatolol . Critical care was consulted for admission and management of this patient. Hospital Course Hospital Course: The treatment worked fairly quickly and she actually self extubated after several hours when her sedation was lightened. She said that she had eaten a small Milky Way, which she does on a regular basis without incident, and that she ate some chicken nuggets that she bought in the freezer section of the grocery store. I checked the label for the brand that she built and it says that they used vegetable oil but there is no warning on the label for that particular brand that indicates someone with a peanut allergy would be at risk. She said that she took her first dose of Imdur and about 20 minutes later is when she began to have the facial and neck swelling and shortness of breath. It is been mentioned several times in the chart about an allergy to lisinopril, but she says she has not taken lisinopril in a long time. She does not have any old prescriptions of it around the house because she threw it away after she had a reaction to it. It is been recommended that she notify her financial engineer and her virtualization consultant about this particular issue with Imdur. She can resume her other home medications. Her labs and examination were reassuring and she was discharged in stable condition. Physical Exam Vital Signs: Temp Pulse Resp BP Pulse Ox 98.4 F 90 18 130/89 H 98 03/02/20 11:33 03/02/20 11:33 03/02/20 11:33 03/02/20 11:33 03/02/20 11:33 Intake & Output 03/01/20 03/02/20 03/03/20 06:59 06:59 06:59 Intake Total 159 563 Output Total 100 650 Balance 59 -87 Weight 95 kg 96.5 kg General appearance: PRESENT: no acute distress, cooperative, disheveled, morbidly obese Respiratory exam: PRESENT: clear to auscultation carley, symmetrical, unlabored. ABSENT: accessory muscle use, chest wall tenderness, crackles, prolonged expiratory phas, rhonchi, tachypnea, wheezes Cardiovascular exam: PRESENT: RRR, +S1, +S2 Pulses: PRESENT: normal carotid pulses Vascular exam: PRESENT: normal capillary refill GI/Abdominal exam: PRESENT: normal bowel sounds, soft. ABSENT: distended, guarding, rebound, tenderness Extremities exam: ABSENT: clubbing, pedal edema Musculoskeletal exam: PRESENT: normal inspection. ABSENT: deformity Neurological exam: PRESENT: alert, awake, oriented to person, oriented to place, oriented to situation Psychiatric exam: PRESENT: appropriate affect, normal mood Skin exam: PRESENT: dry, warm Results Laboratory Results: WBC 15.8 10^3/uL (4.0-10.5) H 03/01/20 05:59 RBC 5.42 10^6/uL (3.72-5.28) H 03/01/20 05:59 Hgb 15.5 g/dL (12.0-15.5) 03/01/20 05:59 Hct 45.0 % (36.0-47.0) 03/01/20 05:59 MCV 83 fl (80-97) 03/01/20 05:59 MCH 28.6 pg (27.0-33.4) 03/01/20 05:59 MCHC 34.4 g/dL (32.0-36.0) 03/01/20 05:59 RDW 16.4 % (11.5-14.0) H 03/01/20 05:59 Plt Count 458 10^3/uL (150-450) H 03/01/20 05:59 Lymph % (Auto) 5.6 % (13-45) L 03/01/20 05:59 Davidson % (Auto) 1.0 % (3-13) L 03/01/20 05:59 Eos % (Auto) 0.1 % (0-6) 03/01/20 05:59 Baso % (Auto) 0.2 % (0-2) 03/01/20 05:59 Absolute Neuts (auto) 14.7 10^3/uL (1.7-8.2) H 03/01/20 05:59 Absolute Lymphs (auto) 0.9 10^3/uL (0.5-4.7) 03/01/20 05:59 Absolute Monos (auto) 0.2 10^3/uL (0.1-1.4) 03/01/20 05:59 Absolute Eos (auto) 0.0 10^3/uL (0.0-0.6) 03/01/20 05:59 Absolute Basos (auto) 0.0 10^3/uL (0.0-0.2) 03/01/20 05:59 Seg Neutrophils % 93.1 % (42-78) H 03/01/20 05:59 PT 12.0 SEC (11.4-15.4) 03/01/20 05:59 INR 0.87 03/01/20 05:59 APTT 32.0 SEC (23.5-35.8) 03/01/20 01:08 Carbonic Acid 1.07 mmol/L (1.05-1.35) 03/01/20 06:25 HCO3/H2CO3 Ratio 18:1 03/01/20 06:25 ABG pH 7.37 (7.35-7.45) 03/01/20 06:25 ABG pCO2 35.5 mmHg (35-45) 03/01/20 06:25 ABG pO2 188.4 mmHg (80-100) H 03/01/20 06:25 ABG HCO3 19.9 mmol/L (20-24) L 03/01/20 06:25 ABG Total CO2 21.0 mmol/L (21-25) 03/01/20 06:25 ABG O2 Saturation 99.3 % (94-98) H 03/01/20 06:25 ABG Base Excess -4.5 mmol/L 03/01/20 06:25 FiO2 45% 03/01/20 06:25 Sodium 132.4 mmol/L (137-145) L 03/01/20 05:59 Potassium 3.8 mmol/L (3.6-5.0) 03/01/20 05:59 Chloride 110 mmol/L (98-107) H 03/01/20 05:59 Carbon Dioxide 16 mmol/L (22-30) L 03/01/20 05:59 Anion Gap 6 (5-19) 03/01/20 05:59 BUN 14 mg/dL (7-20) 03/01/20 05:59 Creatinine 0.93 mg/dL (0.52-1.25) 03/01/20 05:59 Est GFR ( Amer) > 60 (>60) 03/01/20 05:59 Est GFR (MDRD) Non-Af > 60 (>60) 03/01/20 05:59 Glucose 166 mg/dL (75-110) H 03/01/20 05:59 Hemoglobin A1c % 5.4 % (4.7-6.0) 03/01/20 05:59 Calcium 8.4 mg/dL (8.4-10.2) 03/01/20 05:59 Phosphorus 5.2 mg/dL (2.5-4.5) H 03/01/20 05:59 Magnesium 2.2 mg/dL (1.6-2.3) 03/01/20 05:59 Total Bilirubin 0.6 mg/dL (0.2-1.3) 03/01/20 05:59 Direct Bilirubin 0.5 mg/dL (0.0-0.4) H 03/01/20 05:59 Neonat Total Bilirubin Not Reportable 03/01/20 05:59 Neonat Direct Bilirubin Not Reportable 03/01/20 05:59 Neonat Indirect Bili Not Reportable 03/01/20 05:59 AST 37 U/L (14-36) H 03/01/20 05:59 ALT 15 U/L (<35) 03/01/20 05:59 Alkaline Phosphatase 64 U/L (38-126) 03/01/20 05:59 CK-MB (CK-2) 3.05 ng/mL (<4.55) 03/01/20 09:40 Troponin I 0.068 ng/mL 03/01/20 15:43 Total Protein 5.2 g/dL (6.3-8.2) L 03/01/20 05:59 Albumin 2.2 g/dL (3.5-5.0) L 03/01/20 05:59 Triglycerides 228 mg/dL (<150) H 03/01/20 05:59 Cholesterol 576.28 mg/dL (0-200) H 03/01/20 05:59 LDL Cholesterol Direct 386 mg/dL (<100) H 03/01/20 05:59 VLDL Cholesterol 45.6 mg/dL (10-31) H 03/01/20 05:59 HDL Cholesterol 124 mg/dL (>40) 03/01/20 05:59 TSH 0.94 uIU/mL (0.47-4.68) 03/01/20 05:59 Urine Color YELLOW 03/02/20 05:27 Urine Appearance CLOUDY 03/02/20 05:27 Urine pH 5.0 (5.0-9.0) 03/02/20 05:27 Ur Specific [place] 1.034 03/02/20 05:27 Urine Protein >=500 mg/dL (NEGATIVE) H 03/02/20 05:27 Urine Glucose (UA) 150 mg/dL (NEGATIVE) H 03/02/20 05:27 Urine Ketones NEGATIVE mg/dL (NEGATIVE) 03/02/20 05:27 Urine Blood SMALL (NEGATIVE) H 03/02/20 05:27 Urine Nitrite (Reflex) NEGATIVE (NEGATIVE) 03/02/20 05:27 Urine Bilirubin NEGATIVE (NEGATIVE) 03/02/20 05:27 Urine Urobilinogen NEGATIVE mg/dL (<2.0) 03/02/20 05:27 Leukocyte Esterase Rfl NEGATIVE (NEGATIVE) 03/02/20 05:27 Urine RBC (Auto) 16 /HPF 03/02/20 05:27 Urine Bacteria (Auto) TRACE /HPF 03/02/20 05:27 Urine WBC (Reflex) 7 /HPF 03/02/20 05:27 Squamous Epi Cells Auto 7 /HPF 03/02/20 05:27 Urine Mucus (Auto) OCC /LPF 03/02/20 05:27 Urine Ascorbic Acid NEGATIVE (NEGATIVE) 03/02/20 05:27 Urine Opiates Screen NEGATIVE 03/01/20 00:49 Urine Methadone Screen NEGATIVE 03/01/20 00:49 Ur Barbiturates Screen NEGATIVE 03/01/20 00:49 Ur Phencyclidine Scrn NEGATIVE 03/01/20 00:49 Ur Amphetamines Screen NEGATIVE 03/01/20 00:49 U Benzodiazepines Scrn UNCONFIRMED POSITIVE 03/01/20 00:49 Urine Cocaine Screen NEGATIVE 03/01/20 00:49 U Marijuana (THC) Screen UNCONFIRMED POSITIVE 03/01/20 00:49 COVID-19 Source See comment 03/01/20 00:52 COVID-19 ([facility]) Not Detected (Not Detect) 03/01/20 00:52 Influenza A (Rapid) NEGATIVE (NEGATIVE) 03/01/20 00:56 Influenza B (Rapid) NEGATIVE (NEGATIVE) 03/01/20 00:56 03/01/20 03/01/20 03/01/20 01:08 05:59 09:40 CK-MB (CK-2) 3.55 3.05 Troponin I 0.031 0.187 0.135 03/01/20 15:43 CK-MB (CK-2) Troponin I 0.068 Impressions: Head CT 03/01/20 00:00 IMPRESSION: 1. No acute intracranial event. 2. Mild chronic appearing paranasal sinus disease. EVIDENCE OF ACUTE STROKE: NO. Head MRI 03/01/20 00:00 IMPRESSION: 1. No acute ischemia, intracranial mass or mass effect, or evidence of intracranial hemorrhage. 2. Mild sinusitis. EVIDENCE OF ACUTE STROKE: NO. Chest X-Ray 03/01/20 00:09 IMPRESSION: Patchy left upper lobe airspace opacity. Endotracheal and enteric tubes in place copyright 2011 [employer]- All Rights Reserved Plan Time Spent: Greater than 30 Minutes Stroke Is this a Stroke Patient?: No Acute Heart Failure Is this a Heart Failure Patient?: No
== END 2020-03-02 13:00 | disposition home or self-care (01) | DRG 915 ==
LOC: ER 00:05 → EH 01:22 → ICU 04:20 → 3N 21:30
PROVIDERS: ADMIT Anesthesiology; ATTEND Family Medicine
PROC: 5A1935Z Respiratory Ventilation, Less than 24 Consecutive Hours (ICD-10-PCS; principal; 2020-03-01)
DX: T78.3XXA Angioneurotic edema, initial encounter (principal); J96.90 Respiratory failure, unspecified, unspecified whether with hypoxia or hypercapnia; T46.3X5A Adverse effect of coronary vasodilators, initial encounter; I10 Essential (primary) hypertension; E11.9 Type 2 diabetes mellitus without complications; M32.9 Systemic lupus erythematosus, unspecified; Y92.009 Unspecified place in unspecified non-institutional (private) residence as the place of occurrence of the external cause; Z86.32 Personal history of gestational diabetes; Z91.038 Other insect allergy status; Z91.010 Allergy to peanuts; Z88.8 Allergy status to other drugs, medicaments and biological substances; Z91.018 Allergy to other foods; Z82.49 Family history of ischemic heart disease and other diseases of the circulatory system; Z83.3 Family history of diabetes mellitus; Z82.3 Family history of stroke
CPT/HCPCS: 36415; 70450; 70551; 71045; 80053; 80061; 80307; 81001; 82553; 82803; 83036; 83735; 84100; 84443; 84478; 84484; 85025; 85610; 85730; 87040; 87070; 87635; 87804; 93005; 93010; 94002; 96374; 96375; 99285; 99291; C9803; J0295; J0456; J0696; J1100; J1644; J2250; J2405; J2704; J3490; J7050; J7120; S0028

== ENCOUNTER 2020-03-10 01:15 | Inpatient (IN) | payer SELFPAY ==
[2020-03-10] MEDS ORDERED: PROPOFOL 1,000 MG/100 ML INFUS..BTL IV PRN (01:21)
[2020-03-10] MEDS ORDERED: PROPOFOL INJ 200 MG/20 ML VIAL IV ONE (01:23)
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
[2020-03-10] MEDS ORDERED: LABETALOL HCL INJ 20 MG/4 ML DISP.SYRIN IV ONE (01:40)
[2020-03-10 01:49] LABS: ABSOLUTE BASOPHILS # (AUTO) 0.1 10^3/uL (0.0-0.2); ABSOLUTE EOSINOPHILS # (AUTO) 0.7 10^3/uL (0.0-0.6); ABSOLUTE LYMPHOCYTES (AUTO) 5.7 10^3/uL (0.5-4.7); ABSOLUTE MONOCYTES (AUTO) 1.4 10^3/uL (0.1-1.4); ABSOLUTE NEUT (AUTO) 9.6 10^3/uL (1.7-8.2); BASOPHILS % (AUTO) 0.5 % (0-2); HEMATOCRIT 40.3 % (36.0-47.0); HEMOGLOBIN 13.6 g/dL (12.0-15.5); LYMPHOCYTES % (AUTO) 32.5 % (13-45); MEAN CORPUSCULAR HEMOGLOBIN 28.3 pg (27.0-33.4); MEAN CORPUSCULAR HGB CONC 33.7 g/dL (32.0-36.0); MEAN CORPUSCULAR VOLUME 84 fl (80-97); MONOCYTES % (AUTO) 8.1 % (3-13); PLATELET COUNT 552 10^3/uL (150-450); RED CELL DISTRIBUTION WIDTH 16.3 % (11.5-14.0); SEGMENTED NEUTROPHILS % (AUTO) 54.9 % (42-78); TOTAL CELLS COUNTED % (AUTO) 100 %; WHITE BLOOD COUNT 17.5 10^3/uL (4.0-10.5)
[2020-03-10 02:04] LABS: ALBUMIN 2.1 g/dL (3.5-5.0); ALKALINE PHOSPHATASE 74 U/L (38-126); ASPARTATE AMINO TRANSFERASE 25 U/L (14-36); BILIRUBIN,DIRECT 0.2 mg/dL (0.0-0.4); BILIRUBIN,TOTAL 0.2 mg/dL (0.2-1.3); BLOOD UREA NITROGEN 12 mg/dL (7-20); CALCIUM 8.5 mg/dL (8.4-10.2); CARBON DIOXIDE 25 mmol/L (22-30); CHLORIDE 106 mmol/L (98-107); GLUCOSE 184 mg/dL (75-110); POTASSIUM 3.6 mmol/L (3.6-5.0); TOTAL PROTEIN 4.7 g/dL (6.3-8.2)
[2020-03-10 02:09] LABS: ANION GAP 1 (5-19)
--- NOTE | 2020-03-10 02:40 | RADIOLOGY REPORT (SQ) ---
EXAM DESCRIPTION: XR CHEST 1 VIEW COMPLETED DATE/TME: 03/10/2020 01:22 CLINICAL HISTORY: 30 years, Female, ett placement COMPARISON: X-ray chest 03/01/2020 NUMBER OF VIEWS: TECHNIQUE: LIMITATIONS: None. FINDINGS: There is left upper lobe consolidation, compatible with pneumonia. This consolidation is considerably worse, as compared with the prior chest x-ray. The tip of the endotracheal tube is 3.6 cm above the chele. The tip of the nasogastric tube is in the stomach. IMPRESSION: Left upper lobe pneumonia. The ET and NG tubes are in satisfactory position. copyright 2010 [employer]- All Rights Reserved
[2020-03-10 02:41] LABS: ARTERIAL BLOOD H2CO3 1.42 mmol/L (1.05-1.35); ARTERIAL BLOOD HCO3 20.3 mmol/L (20-24); ARTERIAL BLOOD O2 SATURATION 93.1 % (94-98); ARTERIAL BLOOD PCO2 47.3 mmHg (35-45); ARTERIAL BLOOD PH 7.25 (7.35-7.45); ARTERIAL BLOOD PO2 76.3 mmHg (80-100); ARTERIAL BLOOD TOTAL CO2 21.8 mmol/L (21-25)
[2020-03-10 02:42] LABS: ARTERIAL BLOOD FIO2 70%
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
[2020-03-10] MEDS ORDERED: LABETALOL HCL INJ 20 MG/4 ML DISP.SYRIN IV PRN (05:14)
[2020-03-10] MEDS: PROPOFOL 1,000 MG/100 ML INFUS..BTL IV PRN ×6 (05:20→16:26)
[2020-03-10] MEDS: HEPARIN SOD (PORCINE) 5,000 UNIT/ML 1 ML VIAL SUBCUT SCH ×3 (05:21→23:30)
[2020-03-10 05:27] LABS: URINE AMPHETAMINES SCREEN NEGATIVE; URINE BARBITURATES SCREEN NEGATIVE; URINE BENZODIAZEPINES SCREEN NEGATIVE; URINE COCAINE SCREEN NEGATIVE; URINE MARIJUANA (THC) SCREEN NEGATIVE; URINE METHADONE SCREEN NEGATIVE; URINE PHENCYCLIDINE SCREEN NEGATIVE
[2020-03-10] MEDS: MIDAZOLAM 2 MG/2 ML INJ IV PRN ×3 (07:51→16:47)
[2020-03-10] MEDS: METHYLPREDNISOLONE INJ 40 MG/1 ML SDV IV SCH ×3 (07:56→23:30)
[2020-03-10] MEDS: FAMOTIDINE INJ/PF 20 MG/2 ML SDV IV SCH ×2 (09:06→23:30)
[2020-03-10] MEDS: LEVOFLOXACIN 500 MG/D5W RTU 500 MG/100 ML RTUPB IV SCH (12:24)
--- NOTE | 2020-03-10 16:13 | EKG REPORT ---
SEVERITY:- ABNORMAL ECG - SINUS TACHYCARDIA CONSIDER LEFT VENTRICULAR HYPERTROPHY : Confirmed by: Stuart Mcclain MD 10-Mar-2020 16:12:20
[2020-03-10] MEDS ORDERED: FENTANYL CITRATE INJ/PF 100 MCG/2 ML AMPUL ONE (17:53)
[2020-03-10] MEDS ORDERED: FENTANYL CITRATE INJ/PF 100 MCG/2 ML AMPUL IV ONE (17:54)
[2020-03-10] MEDS ORDERED: HALOPERIDOL LACTATE INJ 5 MG/1 ML VIAL IV ONE (17:55)
[2020-03-10] MEDS ORDERED: HALOPERIDOL LACTATE INJ 5 MG/1 ML VIAL ONE (17:56)
[2020-03-10 17:57] LABS: ARTERIAL BLOOD BASE EXCESS -3.3 mmol/L; ARTERIAL BLOOD FIO2 30%; ARTERIAL BLOOD H2CO3 0.94 mmol/L (1.05-1.35); ARTERIAL BLOOD O2 SATURATION 98.5 % (94-98); ARTERIAL BLOOD PCO2 31.3 mmHg (35-45); ARTERIAL BLOOD PH 7.42 (7.35-7.45); ARTERIAL BLOOD PO2 121.2 mmHg (80-100); ARTERIAL BLOOD TOTAL CO2 20.9 mmol/L (21-25)
[2020-03-10] MEDS ORDERED: MIDAZOLAM HCL 50 MG/100 ML RTUINJ ONE (18:07)
[2020-03-10] MEDS: MIDAZOLAM HCL 50 MG/100 ML RTUINJ IV PRN (18:09)
[2020-03-10] MEDS ORDERED: ALBUTEROL SULFATE 0.083% NEB 2.5 MG/3 ML AMPUL NEB ONE (18:33)
[2020-03-10] MEDS: FENTANYL CITRATE/PF 600 MCG/60 ML BAG IV PRN ×2 (18:34→19:00)
[2020-03-10] MEDS: ALBUTEROL SULFATE 0.083% NEB 2.5 MG/3 ML AMPUL NEB SCH ×2 (18:38→19:41)
[2020-03-11] MEDS: FENTANYL CITRATE/PF 600 MCG/60 ML BAG IV PRN (00:35)
[2020-03-11] MEDS: ALBUTEROL SULFATE 0.083% NEB 2.5 MG/3 ML AMPUL NEB SCH ×3 (01:47→13:59)
[2020-03-11] MEDS: MIDAZOLAM HCL 50 MG/100 ML RTUINJ IV PRN (02:00)
[2020-03-11] MEDS: PROPOFOL 1,000 MG/100 ML INFUS..BTL IV PRN (03:35)
[2020-03-11] MEDS: METHYLPREDNISOLONE INJ 40 MG/1 ML SDV IV SCH ×3 (07:48→21:07)
[2020-03-11 07:53] LABS: ARTERIAL BLOOD BASE EXCESS -3.9 mmol/L; ARTERIAL BLOOD FIO2 21%; ARTERIAL BLOOD H2CO3 1.09 mmol/L (1.05-1.35); ARTERIAL BLOOD HCO3 20.7 mmol/L (20-24); ARTERIAL BLOOD O2 SATURATION 95.6 % (94-98); ARTERIAL BLOOD PCO2 36.3 mmHg (35-45); ARTERIAL BLOOD PH 7.37 (7.35-7.45); ARTERIAL BLOOD PO2 79.5 mmHg (80-100); ARTERIAL BLOOD TOTAL CO2 21.8 mmol/L (21-25)
[2020-03-11] MEDS: HEPARIN SOD (PORCINE) 5,000 UNIT/ML 1 ML VIAL SUBCUT SCH ×3 (07:56→21:08)
[2020-03-11 08:25] LABS: ABSOLUTE LYMPHOCYTES (AUTO) 2.2 10^3/uL (0.5-4.7); ABSOLUTE MONOCYTES (AUTO) 1.2 10^3/uL (0.1-1.4); ABSOLUTE NEUT (AUTO) 12.1 10^3/uL (1.7-8.2); HEMATOCRIT 41.3 % (36.0-47.0); HEMOGLOBIN 13.8 g/dL (12.0-15.5); LYMPHOCYTES % (AUTO) 13.9 % (13-45); MEAN CORPUSCULAR HEMOGLOBIN 28.3 pg (27.0-33.4); MEAN CORPUSCULAR HGB CONC 33.5 g/dL (32.0-36.0); MEAN CORPUSCULAR VOLUME 85 fl (80-97); PLATELET COUNT 394 10^3/uL (150-450); RED BLOOD COUNT 4.89 10^6/uL (3.72-5.28); RED CELL DISTRIBUTION WIDTH 16.9 % (11.5-14.0); SEGMENTED NEUTROPHILS % (AUTO) 78.1 % (42-78); TOTAL CELLS COUNTED % (AUTO) 100 %; WHITE BLOOD COUNT 15.5 10^3/uL (4.0-10.5)
[2020-03-11 08:46] LABS: ANION GAP 7 (5-19); BLOOD UREA NITROGEN 25 mg/dL (7-20); CALCIUM 8.7 mg/dL (8.4-10.2); CARBON DIOXIDE 20 mmol/L (22-30); CHLORIDE 106 mmol/L (98-107); GLUCOSE 130 mg/dL (75-110); PHOSPHORUS 7.4 mg/dL (2.5-4.5); POTASSIUM 4.7 mmol/L (3.6-5.0)
--- NOTE | 2020-03-11 09:44 | RADIOLOGY REPORT (SQ) ---
EXAM DESCRIPTION: CHEST SINGLE VIEW IMAGES COMPLETED DATE/TIME: 03/11/2020 5:30 am REASON FOR STUDY: ETT tube COMPARISON: 03/10/2020 EXAM PARAMETERS: NUMBER OF VIEWS: One view TECHNIQUE: Single frontal radiograph of the chest. RADIATION DOSE: N/A LIMITATIONS: None. FINDINGS: TEMPORARY SUPPORT DEVICES:ETT in expected location. NG tube courses below the sajan-diaphr agm in to the stomach. LUNGS AND PLEURA: No opacities. No masses. No effusions. No pneumothorax. MEDIASTINUM AND HILAR STRUCTURES: No masses. Contour normal. HEART AND VASCULAR STRUCTURES: Heart size normal. Normal vascularity. Aorta normal for age BONES: No acute findings. OTHER: No other significant finding. IMPRESSION: NO ACUTE RADIOGRAPHIC FINDING IN THE CHEST. Clearing of the left opacity. SUPPORT DEVICE(S) IN EXPECTED LOCATIONS. TECHNICAL DOCUMENTATION: JOB ID: [id number] 2010 [employer]- All Rights Reserved Reading location - IP/workstation name: [email or web address]
[2020-03-11] MEDS: LEVOFLOXACIN 500 MG/D5W RTU 500 MG/100 ML RTUPB IV SCH (10:07)
[2020-03-11] MEDS: FAMOTIDINE INJ/PF 20 MG/2 ML SDV IV SCH ×2 (10:11→21:08)
[2020-03-11] MEDS: NORMAL SALINE 1000 ML 1,000 ML IV PRN ×2 (12:22→23:01)
[2020-03-11] MEDS ORDERED: ALBUTEROL SULFATE 0.083% NEB 2.5 MG/3 ML AMPUL NEB PRN (16:47)
--- NOTE | 2020-03-11 17:58 | PDOC CRITICAL CARE PROG REPORT ---
General Date:: 03/11/20 ICU Day:: 2 Ventilator Day:: 2 Hospital Day:: 2 Resuscitation Status: Full Code Events in the past 12 to 24 Hours:: This 30-year-old -[place] female presented to [facility] e mergency department via EMS with a sensation of impending doom, suspected to be an imminent angioedema event. 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 She is noted to have multiple allergies. She was intubated by EMS and was admitted to the ICU. She was given IM epinephrine, racemic epinephrine, DuoNeb, Pepcid and Solu-Medrol. Treatment continues with Solu-Medrol and Pepcid. 03/11: This patient has proved quite difficult to sedate adequately while on mechanical ventilatory support. Despite infusion of propofol, Versed and fentanyl, the patient has easily arousable and has episodes requiring physical restraint. I wonder if there is a behavioral/psychiatric component to her medical history that we are currently unaware of, as she proves to be verbally redirectable in the midst of her physically violent thrashing. Her records indicate that she has a history of bipolar disorder and seizure disorder, although there are no home medications to suggest that these are on any maintenance therapy. Reason for ICU Addmission:: Angioedema - Medications: Medications reviewed and adjusted accordingly: Yes Physical Exam Vital Signs: Temp Pulse Resp BP Pulse Ox 97.9 F 97 9 L 104/70 97 03/11/20 08:00 03/11/20 08:08 03/11/20 08:08 03/11/20 08:00 03/11/20 08:08 Intake & Output 03/10/20 03/11/20 03/12/20 06:59 06:59 06:59 Intake Total 22 816 111 Output Total 175 365 40 Balance -153 451 71 Weight 93.6 kg 93.4 kg Weight/Height Weight 93.4 kg Height 1.6 m General appearance: PRESENT: no acute distress, well-developed, well-nourished Head exam: PRESENT: atraumatic, normocephalic Eye exam: PRESENT: conjunctiva pink, EOMI, PERRLA. ABSENT: scleral icterus Mouth exam: PRESENT: moist, tongue midline, other - Copious oral secretions Neck exam: ABSENT: carotid bruit, JVD, lymphadenopathy, thyromegaly Respiratory exam: PRESENT: clear to auscultation carley. ABSENT: rales, rhonchi, wheezes Cardiovascular exam: PRESENT: RRR. ABSENT: diastolic murmur, rubs, systolic murmur Pulses: PRESENT: normal dorsalis pedis pul GI/Abdominal exam: PRESENT: normal bowel sounds, soft. ABSENT: distended, guarding, mass, organolmegaly, rebound, tenderness Extremities exam: PRESENT: full ROM. ABSENT: calf tenderness, clubbing, pedal edema Musculoskeletal exam: PRESENT: normal inspection. ABSENT: deformity Neurological exam: PRESENT: awake, reflexes normal, CN II-XII grossly intact. ABSENT: motor sensory deficit Psychiatric exam: PRESENT: agitated, anxious Skin exam: PRESENT: dry, intact, warm. ABSENT: cyanosis, rash Tubes/Lines: PRESENT: Endotracheal Tube, Nasogastic Tube Laboratory/Radiographs Laboratory Results: 03/11/20 07:50 03/11/20 07:50 03/10/20 03/11/20 03/11/20 17:37 07:38 07:50 WBC 15.5 H RBC 4.89 Hgb 13.8 Hct 41.3 MCV 85 MCH 28.3 MCHC 33.5 RDW 16.9 H Plt Count 394 Seg Neutrophils % 78.1 H Carbonic Acid 0.94 L 1.09 HCO3/H2CO3 Ratio 21:1 18:1 ABG pH 7.42 7.37 ABG pCO2 31.3 L 36.3 ABG pO2 121.2 H 79.5 L ABG HCO3 20.0 20.7 ABG O2 Saturation 98.5 H 95.6 ABG Base Excess -3.3 -3.9 FiO2 30% 21% Sodium Potassium Chloride Carbon Dioxide Anion Gap BUN Creatinine Est GFR ( Amer) Glucose Calcium Phosphorus Magnesium 03/11/20 07:50 WBC RBC Hgb Hct MCV MCH MCHC RDW Plt Count Seg Neutrophils % Carbonic Acid HCO3/H2CO3 Ratio ABG pH ABG pCO2 ABG pO2 ABG HCO3 ABG O2 Saturation ABG Base Excess FiO2 Sodium 132.7 L Potassium 4.7 Chloride 106 Carbon Dioxide 20 L Anion Gap 7 BUN 25 H Creatinine 1.77 H Est GFR ( Amer) 41 L Glucose 130 H Calcium 8.7 Phosphorus 7.4 H Magnesium 2.2 Impressions: Chest X-Ray 03/11/20 05:00 IMPRESSION: NO ACUTE RADIOGRAPHIC FINDING IN THE CHEST. Clearing of the left opacity. SUPPORT DEVICE(S) IN EXPECTED LOCATIONS. All labs, radiographs, diagnostic studies and EKGs were personally reviewed: Yes In addition, reports of radiographic and diagnostic studies were read: Yes Assessment and Plan - Diagnosis (1) Angioedema Qualifiers: Encounter type: initial encounter Qualified Code(s): T78.3XXA - Angioneurotic edema, initial encounter Is this a current diagnosis for this admission?: Yes Plan: * Continue Solu-Medrol. If she tolerates extubation well today, start weaning steroids tomorrow. * Review of available laboratory data from this institution does not show any prior diagnostic evaluation. Will order ESR, CRP, C4 and IgE. (2) Endotracheally intubated Is this a current diagnosis for this admission?: Yes Plan: Extubate (3) Acute kidney injury Is this a current diagnosis for this admission?: Yes Plan: Avoid nephrotoxic drugs. Renal dosing of medications. (4) Hyponatremia Is this a current diagnosis for this admission?: Yes (5) Hypertension Qualifiers: Hypertension type: essential hypertension Qualified Code(s): I10 - Essential (primary) hypertension Is this a current diagnosis for this admission?: Yes Plan: Restart Coreg Critical Time Critical Time (minutes): 45 Level of Care: ICU -: 1. The care of a critical patient is a dynamic process. This note is a manufacturers representative synopsis but static in nature. The timeframe for treatments given in order is not necessarily the actual time these treatments may have been done. 2. This patient requires critical care secondary to ongoing requirements for therapy not offered or safe outside the critical care environment. Transfer to a lower level of care will result in altered life or limb morbidity and mortality. 3. Multidisciplinary rounds completed. 4. ABCDE bundle addressed.
[2020-03-11] MEDS ORDERED: OXYCODONE HCL IR 5 MG TABLET PO ONE (19:48)
[2020-03-11] MEDS ORDERED: LORAZEPAM INJ 2 MG/1 ML VIAL IV ONE (19:52)
[2020-03-11] MEDS ORDERED: CARVEDILOL 6.25 MG TABLET ONE (20:06)
[2020-03-11] MEDS ORDERED: LORAZEPAM INJ 2 MG/1 ML VIAL ONE (20:07)
[2020-03-11] MEDS ORDERED: ACETAMINOPHEN SOLN 325 MG/10.15 ML UDCUP ONE (20:09)
[2020-03-11] MEDS: BENZOCAINE/MENTHOL SORE THROAT LOZENGE BUCCAL PRN (21:07)
[2020-03-11] MEDS: CARVEDILOL 6.25 MG TABLET PO SCH (21:10)
[2020-03-11] MEDS ORDERED: ZOLPIDEM TARTRATE 5 MG TABLET PO ONE (22:38)
[2020-03-12] MEDS ORDERED: LABETALOL HCL INJ 20 MG/4 ML DISP.SYRIN IV ONE (01:04)
[2020-03-12] MEDS ORDERED: DIPHENHYDRAMINE HCL 50 MG/ML VIAL IV ONE (01:04)
[2020-03-12] MEDS: BENZOCAINE/MENTHOL SORE THROAT LOZENGE BUCCAL PRN (02:37)
[2020-03-12 05:00] LABS: ABSOLUTE LYMPHOCYTES (AUTO) 1.1 10^3/uL (0.5-4.7); ABSOLUTE MONOCYTES (AUTO) 0.6 10^3/uL (0.1-1.4); ABSOLUTE NEUT (AUTO) 9.5 10^3/uL (1.7-8.2); BASOPHILS % (AUTO) 0.1 % (0-2); HEMOGLOBIN 11.9 g/dL (12.0-15.5); LYMPHOCYTES % (AUTO) 9.7 % (13-45); MEAN CORPUSCULAR HEMOGLOBIN 28.3 pg (27.0-33.4); MEAN CORPUSCULAR HGB CONC 33.9 g/dL (32.0-36.0); MEAN CORPUSCULAR VOLUME 84 fl (80-97); MONOCYTES % (AUTO) 5.5 % (3-13); PLATELET COUNT 256 10^3/uL (150-450); RED BLOOD COUNT 4.18 10^6/uL (3.72-5.28); RED CELL DISTRIBUTION WIDTH 16.9 % (11.5-14.0); SEGMENTED NEUTROPHILS % (AUTO) 84.7 % (42-78); TOTAL CELLS COUNTED % (AUTO) 100 %; WHITE BLOOD COUNT 11.2 10^3/uL (4.0-10.5)
[2020-03-12 05:06] LABS: ANION GAP 5 (5-19); BLOOD UREA NITROGEN 32 mg/dL (7-20); CALCIUM 8.2 mg/dL (8.4-10.2); GLUCOSE 136 mg/dL (75-110); POTASSIUM 4.2 mmol/L (3.6-5.0)
[2020-03-12 05:11] LABS: CARBON DIOXIDE 20 mmol/L (22-30); CHLORIDE 108 mmol/L (98-107)
[2020-03-12 05:20] LABS: PHOSPHORUS 4.4 mg/dL (2.5-4.5)
[2020-03-12] MEDS ORDERED: HYDRALAZINE HCL INJ/PF 20 MG/1 ML SDV ONE (05:26)
[2020-03-12] MEDS: HEPARIN SOD (PORCINE) 5,000 UNIT/ML 1 ML VIAL SUBCUT SCH ×4 (06:14→21:02)
[2020-03-12] MEDS: METHYLPREDNISOLONE INJ 40 MG/1 ML SDV IV SCH (06:15)
--- NOTE | 2020-03-12 08:49 | RADIOLOGY REPORT (SQ) ---
EXAM DESCRIPTION: CHEST SINGLE VIEW IMAGES COMPLETED DATE/TIME: 03/12/2020 5:36 am REASON FOR STUDY: intubated COMPARISON: 03/11/2020 EXAM PARAMETERS: NUMBER OF VIEWS: One view. TECHNIQUE: Single frontal radiographic view of the chest acquired. RADIATION DOSE: NA LIMITATIONS: None. FINDINGS: LUNGS AND PLEURA: No opacities, masses or pneumothorax. No pleural effusion. MEDIASTINUM AND HILAR STRUCTURES: No masses. Contour normal. HEART AND VASCULAR STRUCTURES: Heart normal in size. Normal vasculature. BONES: No acute findings. HARDWARE: None in the chest. OTHER: No other significant finding. IMPRESSION: NO ACUTE RADIOGRAPHIC FINDING IN THE CHEST. No ETT is noted. TECHNICAL DOCUMENTATION: JOB ID: [id number] 2010 [employer]- All Rights Reserved Reading location - IP/workstation name: [email or web address]
[2020-03-12] MEDS: FAMOTIDINE INJ/PF 20 MG/2 ML SDV IV SCH ×2 (09:07→21:02)
[2020-03-12] MEDS: CARVEDILOL 6.25 MG TABLET PO SCH ×2 (09:07→21:03)
[2020-03-12] MEDS: METHYLPREDNISOLONE INJ 125 MG/2 ML SDV IV SCH ×2 (09:08→21:01)
[2020-03-12] MEDS: LEVOFLOXACIN 500 MG/D5W RTU 500 MG/100 ML RTUPB IV SCH (09:08)
--- NOTE | 2020-03-12 09:43 | PDOC CRITICAL CARE PROG REPORT ---
General Date:: 03/12/20 ICU Day:: 3 Hospital Day:: 3 Resuscitation Status: Full Code Events in the past 12 to 24 Hours:: This 30-year-old -Congolese female presented to [facility] emergency department via EMS with a sensation of impending doom, suspected to be an imminent angioedema event. 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 She is noted to have multiple allergies. She was intubated by EMS and was admitted to the ICU. She was given IM epinephrine, racemic epinephrine, DuoNeb, Pepcid and Solu-Medrol. Treatment continues with Solu-Medrol and Pepcid. 03/11: This patient has proved quite difficult to sedate adequately while on mechanical ventilatory support. Despite infusion of propofol, Versed and fentanyl, the patient has easily arousable and has episodes requiring physical restraint. I wonder if there is a behavioral/psychiatric component to her medical history that we are currently unaware of, as she proves to be verbally redirectable in the midst of her physically violent thrashing. Her records indicate that she has a history of bipolar disorder and seizure disorder, although there are no home medications to suggest that these are on any maintenance therapy. 03/12: Successfully extubated yesterday. Awake, alert, mentating well. Suspect that her angioedema may have been secondary to food that she ate (someone made spaghetti sauce, which she believes has been determined to have had mushrooms). Still on Solu-Medrol 60 mg IV every 8 hours. She is hypertensive. Borderline tachycardia. Restarted on Coreg yesterday evening. She has not been forthcoming with her medical history; however, review of pharmacy record suggests that the patient takes furosemide twice daily along with frequent use of Percocet (although her urine drug screen was negative). Review of systems relevant to events:: Respiratory: Respiratory distress, angioedema Reason for ICU Addmission:: Angioedema - Medications: Medications reviewed and adjusted accordingly: Yes Physical Exam Vital Signs: Temp Pulse Resp BP Pulse Ox 97.7 F 92 16 149/102 H 98 03/11/20 16:00 03/11/20 20:00 03/12/20 06:00 03/12/20 06:19 03/12/20 06:00 Intake & Output 1003/12/20 03/13/20 06:59 06:59 06:59 Intake Total 816 1584 Output Total 365 4942 Balance 451 -158 Weight 93.4 kg 93.5 kg Weight/Height Weight 93.5 kg Height 1.6 m General appearance: PRESENT: no acute distress, well-developed, well-nourished Head exam: PRESENT: atraumatic, normocephalic Eye exam: PRESENT: conjunctiva pink, EOMI, PERRLA. ABSENT: scleral icterus Neck exam: ABSENT: carotid bruit, JVD, lymphadenopathy, thyromegaly Respiratory exam: PRESENT: clear to auscultation carley. ABSENT: rales, rhonchi, wheezes Cardiovascular exam: PRESENT: RRR. ABSENT: diastolic murmur, rubs, systolic murmur GI/Abdominal exam: PRESENT: normal bowel sounds, soft. ABSENT: distended, guarding, mass, organolmegaly, rebound, tenderness Rectal exam: PRESENT: deferred Extremities exam: PRESENT: full ROM. ABSENT: calf tenderness, clubbing, pedal edema Neurological exam: PRESENT: alert, awake, oriented to person, oriented to place, oriented to time, oriented to situation, CN II-XII grossly intact. ABSENT: motor sensory deficit Psychiatric exam: PRESENT: anxious Skin exam: PRESENT: dry, intact, warm. ABSENT: cyanosis, rash Laboratory/Radiographs Laboratory Results: 03/12/20 04:25 03/12/20 04:25 03/11/20 03/11/20 03/11/20 07:38 07:50 07:50 WBC 15.5 H RBC 4.89 Hgb 13.8 Hct 41.3 MCV 85 MCH 28.3 MCHC 33.5 RDW 16.9 H Plt Count 394 Seg Neutrophils % 78.1 H Carbonic Acid 1.09 HCO3/H2CO3 Ratio 18:1 ABG pH 7.37 ABG pCO2 36.3 ABG pO2 79.5 L ABG HCO3 20.7 ABG O2 Saturation 95.6 ABG Base Excess -3.9 FiO2 21% Sodium 132.7 L Potassium 4.7 Chloride 106 Carbon Dioxide 20 L Anion Gap 7 BUN 25 H Creatinine 1.77 H Est GFR ( Amer) 41 L Glucose 130 H Calcium 8.7 Ionized Calcium Pete Phosphorus 7.4 H Magnesium 2.2 C-Reactive Protein 03/11/20 03/12/20 03/12/20 07:50 04:25 04:25 WBC RBC Hgb Hct MCV MCH MCHC RDW Plt Count Seg Neutrophils % Carbonic Acid HCO3/H2CO3 Ratio ABG pH ABG pCO2 ABG pO2 ABG HCO3 ABG O2 Saturation ABG Base Excess FiO2 Sodium 132.5 L Potassium 4.2 Chloride 108 H Carbon Dioxide 20 L Anion Gap 5 BUN 32 H Creatinine 1.72 H Est GFR ( Amer) 42 L Glucose 136 H Calcium 8.2 L Ionized Calcium Pete 1.16 Phosphorus 4.4 D Magnesium 2.2 C-Reactive Protein < 5.0 03/12/20 04:25 WBC 11.2 H RBC 4.18 Hgb 11.9 L Hct 35.0 L MCV 84 MCH 28.3 MCHC 33.9 RDW 16.9 H Plt Count 256 Seg Neutrophils % 84.7 H Carbonic Acid HCO3/H2CO3 Ratio ABG pH ABG pCO2 ABG pO2 ABG HCO3 ABG O2 Saturation ABG Base Excess FiO2 Sodium Potassium Chloride Carbon Dioxide Anion Gap BUN Creatinine Est GFR ( Amer) Glucose Calcium Ionized Calcium Pete Phosphorus Magnesium C-Reactive Protein All labs, radiographs, diagnostic studies and EKGs were personally reviewed: Yes In addition, reports of radiographic and diagnostic studies were read: Yes Assessment and Plan - Diagnosis (1) Angioedema Qualifiers: Encounter type: initial encounter Qualified Code(s): T78.3XXA - Angioneurotic edema, initial encounter Is this a current diagnosis for this admission?: Yes Plan: * Wean Solu-Medrol. * ESR 65. CRP less than 5. C4 pending. IgE pending. ROBERTO pending. (2) Acute kidney injury Is this a current diagnosis for this admission?: Yes (3) Hyponatremia Is this a current diagnosis for this admission?: Yes Plan: Mild. Monitor serum sodium. (4) Hypertension Qualifiers: Hypertension type: essential hypertension Qualified Code(s): I10 - Essential (primary) hypertension Is this a current diagnosis for this admission?: Yes Plan: * Continue Coreg 6.25 mg p.o. twice daily. * Restart furosemide 20 mg p.o. twice daily. (5) Endotracheally intubated Is this a current diagnosis for this admission?: Yes Plan Summary: Okay to transfer to floor from pulmonary standpoint. Critical Time Critical Time (minutes): 45 Level of Care: ICU -: 1. The care of a critical patient is a dynamic process. This note is a benefits representative synopsis but static in nature. The timeframe for treatments given in order is not necessarily the actual time these treatments may have been done. 2. This patient requires critical care secondary to ongoing requirements for therapy not offered or safe outside the critical care environment. Transfer to a lower level of care will result in altered life or limb morbidity and mor tality. 3. Multidisciplinary rounds completed. 4. ABCDE bundle addressed.
[2020-03-12] MEDS ORDERED: FUROSEMIDE 20 MG TABLET PO SCH (10:00)
[2020-03-12] MEDS ORDERED: METHYLPREDNISOLONE INJ 40 MG/1 ML SDV IV SCH (10:00)
[2020-03-12] MEDS ORDERED: TEMAZEPAM 15 MG CAPSULE PO PRN (12:41)
[2020-03-12] MEDS ORDERED: DIPHENHYDRAMINE HCL 50 MG/ML VIAL IV PRN (12:41)
[2020-03-12] MEDS: OXYCODONE-ACETAMINOPHEN 5-325 MG TABLET PO PRN ×2 (14:30→19:43)
[2020-03-12] MEDS: NORMAL SALINE 1000 ML 1,000 ML IV PRN ×2 (14:30→22:33)
[2020-03-13] MEDS ORDERED: MELATONIN 5 MG TABLET PO PRN (01:59)
[2020-03-13] MEDS ORDERED: MELATONIN 5 MG TABLET PO ONE (02:00)
[2020-03-13] MEDS: NORMAL SALINE 1000 ML 1,000 ML IV PRN (05:17)
[2020-03-13] MEDS: HEPARIN SOD (PORCINE) 5,000 UNIT/ML 1 ML VIAL SUBCUT SCH ×2 (05:19→15:08)
[2020-03-13 05:23] LABS: ABSOLUTE MONOCYTES (AUTO) 0.4 10^3/uL (0.1-1.4); ABSOLUTE NEUT (AUTO) 6.7 10^3/uL (1.7-8.2); HEMATOCRIT 34.7 % (36.0-47.0); HEMOGLOBIN 11.7 g/dL (12.0-15.5); LYMPHOCYTES % (AUTO) 11.8 % (13-45); MEAN CORPUSCULAR HEMOGLOBIN 28.3 pg (27.0-33.4); MEAN CORPUSCULAR HGB CONC 33.6 g/dL (32.0-36.0); MEAN CORPUSCULAR VOLUME 84 fl (80-97); MONOCYTES % (AUTO) 5.2 % (3-13); PLATELET COUNT 221 10^3/uL (150-450); RED BLOOD COUNT 4.12 10^6/uL (3.72-5.28); RED CELL DISTRIBUTION WIDTH 16.8 % (11.5-14.0); TOTAL CELLS COUNTED % (AUTO) 100 %; WHITE BLOOD COUNT 8.1 10^3/uL (4.0-10.5)
[2020-03-13 05:47] LABS: BLOOD UREA NITROGEN 30 mg/dL (7-20); CALCIUM 7.7 mg/dL (8.4-10.2); GLUCOSE 219 mg/dL (75-110); PHOSPHORUS 4.3 mg/dL (2.5-4.5); POTASSIUM 4.4 mmol/L (3.6-5.0)
[2020-03-13 05:52] LABS: CARBON DIOXIDE 17 mmol/L (22-30); CHLORIDE 112 mmol/L (98-107)
[2020-03-13 05:53] LABS: ANION GAP 4 (5-19)
[2020-03-13] MEDS ORDERED: NORMAL SALINE 1000 ML 1,000 ML IV PRN (07:40)
[2020-03-13] MEDS ORDERED: METHYLPREDNISOLONE INJ 125 MG/2 ML SDV IV SCH (10:00)
[2020-03-13] MEDS ORDERED: METHYLPREDNISOLONE INJ 40 MG/1 ML SDV IV SCH (10:00)
[2020-03-13] MEDS: CARVEDILOL 6.25 MG TABLET PO SCH (11:14)
[2020-03-13] MEDS: FAMOTIDINE INJ/PF 20 MG/2 ML SDV IV SCH (11:15)
[2020-03-13] MEDS: OXYCODONE-ACETAMINOPHEN 5-325 MG TABLET PO PRN (15:21)
[2020-03-13 16:26] LABS: BLOOD UREA NITROGEN 26 mg/dL (7-20); CALCIUM 7.5 mg/dL (8.4-10.2); GLUCOSE 178 mg/dL (75-110); POTASSIUM 4.5 mmol/L (3.6-5.0)
[2020-03-13 16:32] LABS: CARBON DIOXIDE 19 mmol/L (22-30); CHLORIDE 111 mmol/L (98-107)
[2020-03-13 16:40] LABS: ANION GAP 2 (5-19)
[2020-03-13] MEDS ORDERED: HYDRALAZINE HCL 10 MG TABLET PO ONE (18:00)
[2020-03-13 18:06] VITALS: BP 177/94
--- NOTE | 2020-03-13 18:42 | PDOC DISCHARGE SUMMARY ---
Impression - Admit/DC Date/PCP Admission Date/Primary Care Provider: 03/10/20 02:27 Discharge Date: 03/13/20 - Discharge Diagnosis (1) Anaphylactic reaction Is this a current diagnosis for this admission?: Yes (2) Acute kidney injury Is this a current diagnosis for this admission?: Yes (3) Angioedema Is this a current diagnosis for this admission?: Yes (4) Hypertension Is this a current diagnosis for this admission?: Yes - Additional Information Resuscitation Status: Full Code Discharge Diet: As Tolerated Discharge Activity: Activity As Tolerated Referrals: [facility] [Provider Group] - 03/22/20 8:45 am Prescriptions: Carvedilol [Coreg 12.5 mg Tablet] 12.5 mg PO Q12 30 Days #60 tablet Home Medications: Carvedilol [Coreg 12.5 mg Tablet] 12.5 mg PO Q12 30 Days #60 tablet 03/13/20 History of Present Illiness History of Present Illness: As per outside sales representative admission note Ms. Toshia King is a 30-year-old female with a past medical history of anaphylactic reaction presumably to lisinopril. Who presented to the ED via EMS intubated. Per the chart the patient called EMS with complaints of difficulty breathing stated she did not know what was setting off her allergic reaction but had taken Benadryl without relief of symptoms. Per the EMS records she was given 2 doses of IM epinephrine, racemic epi, DuoNeb, Pepcid, and Solu-Medrol. Despite these interventions the patient failed to improve and was intubated with a 6.5 ETT by EMS. Apparently they were unable to get a #7 ETT secondary to edema in the patient's airway. She was recently admitted on 03/01/2020 with angioedema requiring intubation, the cause at that time is unknown she does have a history of hypertension and gestational diabetes she was recently started on a new blood pressure medication prior to that admission although that medication is unknown. She is admitted to the ICU for further management Hospital Course Hospital Course: (1) Anaphylactic reaction As per my conversation with outside sales representative not sure if patient did have anaphylactic reaction as she was hypertensive on admission and other vitals were stable. Patient was treated for epinephrine and racemic epinephrine by EMS. Patient was intubated by EMS. Successfully extubated the following day. Vitals stable at time of discharge. SPO2 WNL. (2) Acute kidney injury Likely prerenal especially if patient did have anaphylactic reaction before presenting to the hospital. Patient was started on IV fluids and her creatinine improved significantly however still not in the normal range. Patient very anxious to be discharged, I extensively counseled patient on risk of not following up with PCP for reevaluation of her kidney function. Patient assured me that she has a follow-up appointment with her PCP on March 22 and she will make sure to get her kidney reevaluated. Patient was advised on avoiding nephrotoxic meds including NSAIDs and keep well- hydrated and monitor her urinary output Patient was advised to come back to ED if she develops shortness of breath or her urine output is dropping. (3) Angioedema This was reported with due to lisinopril. Patient also has multiple other allergies. Unfortunately no line clearance foreman consult available at [facility]. Patient was strongly encouraged to follow-up with line clearance foreman, and was advised to avoid lisinopril in the future. No overall swelling on physical examination, patient vitals stable, SPO2 WNL on RA. Benign lung examination. (4) Hypertension Improved but not optimized. Patient carvedilol was increased to 12.5 however still not optimized. Patient was asked to leave the hospital until pressures controlled however she did not want to wait. My plan was to give her a dose of IV hydralazine and asked her to wait until her pressure is normalized before she can safely be discharged home. Unfortunately patient had removed her IV access and state was given p.o. hydralazine. Unfortunately patient refused to remain in the hospital until her blood pressure was rechecked to see if it safe for her to go home. (Please refer to the primary nursing note.) Patient has an appoint with her PCP on 03/22/2020. Note. Patient was asking me for a prescription for Percocet for her back pain stating that she wants to have some Percocet until she gets a refill from her PCP. I informed her that since Percocet was not listed on her home medication and I did not see a clear reason for her to be on Percocet I would not be able to give her a prescription for Percocet and she will has to ask her PCP. I am not sure if this upset her and she refused to stay for her blood pressure to be optimized before being safely discharged home. Physical Exam Vital Signs: Temp Pulse Resp BP Pulse Ox 98.1 F 69 17 177/94 H 100 03/13/20 18:04 03/13/20 18:04 03/13/20 18:04 03/13/20 18:04 03/13/20 18:04 Intake & Output 03/12/20 03/13/20 03/14/20 06:59 06:59 06:59 Intake Total 1584 3520 238 Output Total 1742 450 Balance -158 3070 238 Weight 93.5 kg 93.5 kg General appearance: PRESENT: no acute distress, obese, well-developed, well- nourished Respiratory exam: PRESENT: clear to auscultation carley. ABSENT: rales, rhonchi, wheezes Cardiovascular exam: PRESENT: RRR. ABSENT: diastolic murmur, rubs, systolic murmur Pulses: PRESENT: normal dorsalis pedis pul GI/Abdominal exam: PRESENT: normal bowel sounds, soft. ABSENT: distended, guarding, mass, organolmegaly, rebound, tenderness Neurological exam: PRESENT: alert, awake, oriented to person, oriented to place, oriented to time, oriented to situation, CN II-XII grossly intact. ABSENT: motor sensory deficit Skin exam: PRESENT: dry, intact, warm. ABSENT: cyanosis, rash Results Laboratory Results: WBC 8.1 10^3/uL (4.0-10.5) 03/13/20 04:55 RBC 4.12 10^6/uL (3.72-5.28) 03/13/20 04:55 Hgb 11.7 g/dL (12.0-15.5) L 03/13/20 04:55 Hct 34.7 % (36.0-47.0) L 03/13/20 04:55 MCV 84 fl (80-97) 03/13/20 04:55 MCH 28.3 pg (27.0-33.4) 03/13/20 04:55 MCHC 33.6 g/dL (32.0-36.0) 03/13/20 04:55 RDW 16.8 % (11.5-14.0) H 03/13/20 04:55 Plt Count 221 10^3/uL (150-450) 03/13/20 04:55 Lymph % (Auto) 11.8 % (13-45) L 03/13/20 04:55 [place] % (Auto) 5.2 % (3-13) 03/13/20 04:55 Eos % (Auto) 0.0 % (0-6) 03/13/20 04:55 Baso % (Auto) 0.0 % (0-2) 03/13/20 04:55 Absolute Neuts (auto) 6.7 10^3/uL (1.7-8.2) 03/13/20 04:55 Absolute Lymphs (auto) 1.0 10^3/uL (0.5-4.7) 03/13/20 04:55 Absolute Monos (auto) 0.4 10^3/uL (0.1-1.4) 03/13/20 04:55 Absolute Eos (auto) 0.0 10^3/uL (0.0-0.6) 03/13/20 04:55 Absolute Basos (auto) 0.0 10^3/uL (0.0-0.2) 03/13/20 04:55 Seg Neutrophils % 83.0 % (42-78) H 03/13/20 04:55 ESR 65 mm/hr (0-20) H 03/11/20 07:50 Carbonic Acid 1.09 mmol/L (1.05-1.35) 03/11/20 07:38 HCO3/H2CO3 Ratio 18:1 03/11/20 07:38 ABG pH 7.37 (7.35-7.45) 03/11/20 07:38 ABG pCO2 36.3 mmHg (35-45) 03/11/20 07:38 ABG pO2 79.5 mmHg (80-100) L 03/11/20 07:38 ABG HCO3 20.7 mmol/L (20-24) 03/11/20 07:38 ABG Total CO2 21.8 mmol/L (21-25) 03/11/20 07:38 ABG O2 Saturation 95.6 % (94-98) 03/11/20 07:38 ABG Base Excess -3.9 mmol/L 03/11/20 07:38 FiO2 21% 03/11/20 07:38 Sodium 131.6 mmol/L (137-145) L 03/13/20 15:45 Potassium 4.5 mmol/L (3.6-5.0) 03/13/20 15:45 Chloride 111 mmol/L (98-107) H 03/13/20 15:45 Carbon Dioxide 19 mmol/L (22-30) L 03/13/20 15:45 Anion Gap 2 (5-19) L 03/13/20 15:45 BUN 26 mg/dL (7-20) H 03/13/20 15:45 Creatinine 1.57 mg/dL (0.52-1.25) H 03/13/20 15:45 Est GFR ( Amer) 47 (>60) L 03/13/20 15:45 Est GFR (MDRD) Non-Af 39 (>60) L 03/13/20 15:45 Glucose 178 mg/dL (75-110) H 03/13/20 15:45 POC Glucose 180 mg/dL (70-110) H 03/10/20 01:34 Calcium 7.5 mg/dL (8.4-10.2) L 03/13/20 15:45 Ionized Calcium Pete 1.16 mmol/L (1.14-1.30) 03/12/20 04:25 Phosphorus 4.3 mg/dL (2.5-4.5) 03/13/20 04:55 Magnesium 2.3 mg/dL (1.6-2.3) 03/13/20 04:55 Total Bilirubin 0.2 mg/dL (0.2-1.3) 03/10/20 01:30 Direct Bilirubin 0.2 mg/dL (0.0-0.4) 03/10/20 01:30 Neonat Total Bilirubin Not Reportable 03/10/20 01:30 Neonat Direct Bilirubin Not Reportable 03/10/20 01:30 Neonat Indirect Bili Not Reportable 03/10/20 01:30 AST 25 U/L (14-36) 03/10/20 01:30 ALT 14 U/L (<35) 03/10/20 01:30 Alkaline Phosphatase 74 U/L (38-126) 03/10/20 01:30 C-Reactive Protein < 5.0 mg/L (<10.0) 03/11/20 07:50 Total Protein 4.7 g/dL (6.3-8.2) L 03/10/20 01:30 Albumin 2.1 g/dL (3.5-5.0) L 03/10/20 01:30 Urine Opiates Screen NEGATIVE 03/10/20 01:30 Urine Methadone Screen NEGATIVE 03/10/20 01:30 Ur Barbiturates Screen NEGATIVE 03/10/20 01:30 Ur Phencyclidine Scrn NEGATIVE 03/10/20 01:30 Ur Amphetamines Screen NEGATIVE 03/10/20 01:30 U Benzodiazepines Scrn NEGATIVE 03/10/20 01:30 Urine Cocaine Screen NEGATIVE 03/10/20 01:30 U Marijuana (THC) Screen NEGATIVE 03/10/20 01:30 Impressions: Chest X-Ray 03/10/20 01:22 IMPRESSION: Left upper lobe pneumonia. The ET and NG tubes are in satisfactory position. copyright 2011 [email or web address]- All Rights Reserved Chest X-Ray 03/11/20 05:00 IMPRESSION: NO ACUTE RADIOGRAPHIC FINDING IN THE CHEST. Clearing of the left opacity. SUPPORT DEVICE(S) IN EXPECTED LOCATIONS. Chest X-Ray 03/12/20 06:00 IMPRESSION: NO ACUTE RADIOGRAPHIC FINDING IN THE CHEST. No ETT is noted. Stroke Is this a Stroke Patient?: No Acute Heart Failure Is this a Heart Failure Patient?: No
[2020-03-13] MEDS ORDERED: CARVEDILOL 12.5 MG TABLET PO SCH (22:00)
[2020-03-14 07:21] LABS: ANTINUCLEAR ANTIBODIES Negative (Negative)
== END 2020-03-13 18:20 | disposition home or self-care (01) | DRG 915 ==
LOC: ER 01:15 → EH 02:27 → ICU 02:58 → 5 03-12 11:21
PROVIDERS: ADMIT Internal Medicine Critical Care Medicine; ATTEND Internal Medicine
PROC: 5A1945Z Respiratory Ventilation, 24-96 Consecutive Hours (ICD-10-PCS; principal; 2020-03-10)
DX: T78.3XXA Angioneurotic edema, initial encounter (principal); J96.00 Acute respiratory failure, unspecified whether with hypoxia or hypercapnia; N17.9 Acute kidney failure, unspecified; E87.1 Hypo-osmolality and hyponatremia; I10 Essential (primary) hypertension; E11.9 Type 2 diabetes mellitus without complications; Z79.51 Long term (current) use of inhaled steroids; Z91.010 Allergy to peanuts; Z88.8 Allergy status to other drugs, medicaments and biological substances; Z91.018 Allergy to other foods
CPT/HCPCS: 36415; 36600; 71045; 80048; 80053; 80307; 82164; 82330; 82785; 82803; 82962; 83735; 84100; 85025; 85652; 86038; 86140; 86160; 87086; 93005; 93010; 94002; 94003; 94640; 96374; 96375; 99291; J0360; J1200; J1630; J1644; J1956; J2060; J2250; J2704; J2920; J2930; J3010; J3490; J7030; J7613; S0028

== ENCOUNTER 2020-05-02 21:34 | Emergency (ER) | payer MEDICAID ==
[2020-05-02] MEDS ORDERED: DIPHENHYDRAMINE HCL 50 MG/ML VIAL IV ONE (21:49)
[2020-05-02] MEDS ORDERED: METHYLPREDNISOLONE INJ 125 MG/2 ML SDV IV ONE (21:49)
[2020-05-02] MEDS ORDERED: FAMOTIDINE INJ/PF 20 MG/2 ML SDV IV ONE (21:49)
[2020-05-02] MEDS ORDERED: EPINEPHRINE INJ/PF 1 MG/1 ML AMPULE SUBCUT ONE (21:51)
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
[2020-05-02 22:18] LABS: ABSOLUTE BASOPHILS # (AUTO) 0.1 10^3/uL (0.0-0.2); ABSOLUTE EOSINOPHILS # (AUTO) 0.5 10^3/uL (0.0-0.6); ABSOLUTE LYMPHOCYTES (AUTO) 1.8 10^3/uL (0.5-4.7); ABSOLUTE MONOCYTES (AUTO) 0.3 10^3/uL (0.1-1.4); ABSOLUTE NEUT (AUTO) 2.3 10^3/uL (1.7-8.2); BASOPHILS % (AUTO) 1.2 % (0-2); EOSINOPHILS % (AUTO) 9.3 % (0-6); HEMATOCRIT 36.1 % (36.0-47.0); HEMOGLOBIN 12.2 g/dL (12.0-15.5); LYMPHOCYTES % (AUTO) 36.8 % (13-45); MEAN CORPUSCULAR HEMOGLOBIN 28.2 pg (27.0-33.4); MEAN CORPUSCULAR HGB CONC 33.7 g/dL (32.0-36.0); MEAN CORPUSCULAR VOLUME 84 fl (80-97); MONOCYTES % (AUTO) 6.2 % (3-13); PLATELET COUNT 329 10^3/uL (150-450); RED BLOOD COUNT 4.31 10^6/uL (3.72-5.28); RED CELL DISTRIBUTION WIDTH 15.5 % (11.5-14.0); SEGMENTED NEUTROPHILS % (AUTO) 46.5 % (42-78); TOTAL CELLS COUNTED % (AUTO) 100 %
--- NOTE | 2020-05-02 23:01 | RADIOLOGY REPORT (SQ) ---
CHEST X-RAY 1 VIEW on 05/02/2020 at 10:24 PM CLINICAL INDICATION: Shortness of breath COMPARISON: 03/12/2020 FINDINGS: The lungs are clear. Cardiac, hilar and mediastinal contours are within normal limits. Pulmonary vascularity is within normal limits. No bony abnormality is noted. IMPRESSION: No active disease.
[2020-05-03 01:30] LABS: BLOOD UREA NITROGEN 9 mg/dL (7-20); CHLORIDE 107 mmol/L (98-107); GLUCOSE 145 mg/dL (75-110); POTASSIUM 3.2 mmol/L (3.6-5.0)
[2020-05-03 01:36] LABS: CARBON DIOXIDE 28 mmol/L (22-30)
[2020-05-03 01:39] LABS: ANION GAP 1 (5-19)
[2020-05-03 01:57] VITALS: BP 151/97
--- NOTE | 2020-05-03 02:03 | EKG REPORT ---
SEVERITY:- NORMAL ECG - SINUS RHYTHM : Confirmed by: Olive Chowdhury MD 03-May-2020 02:02:25
== END 2020-05-03 02:09 | disposition home or self-care (01) ==
LOC: ER 21:34
DX: T78.3XXA Angioneurotic edema, initial encounter (principal); R07.0 Pain in throat; I10 Essential (primary) hypertension; J45.909 Unspecified asthma, uncomplicated; E11.9 Type 2 diabetes mellitus without complications; Z91.018 Allergy to other foods; Z88.8 Allergy status to other drugs, medicaments and biological substances; Z91.038 Other insect allergy status; Z91.010 Allergy to peanuts; Z79.899 Other long term (current) drug therapy
CPT/HCPCS: 93005; 99285; 96372; 96374; 96375; 36415; 85025; 80048; 71045; 93010; J1200; J0171; J2930; S0028

== ENCOUNTER 2020-05-17 10:56 | Observation (INO) | payer MEDICAID ==
[2020-05-17] MEDS ORDERED: RACEPINEPHRINE HCL 2.25% NEB 0.5 ML AMPUL NEB ONE ×2 (10:59→11:00)
[2020-05-17] MEDS ORDERED: METHYLPREDNISOLONE INJ 125 MG/2 ML SDV IV ONE (11:00)
[2020-05-17] MEDS ORDERED: FAMOTIDINE INJ/PF 20 MG/2 ML SDV IV ONE (11:00)
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
[2020-05-17] MEDS ORDERED: LIDOCAINE 2% INJ-PF (20 MG/ML) 10 ML AMPUL ONE (11:23)
[2020-05-17] MEDS ORDERED: LIDOCAINE 2% INJ-PF (20 MG/ML) 10 ML AMPUL NEB ONE (11:35)
[2020-05-17] MEDS ORDERED: ONDANSETRON HCL INJ/PF 4 MG/2 ML SDV IV ONE (11:35)
[2020-05-17 11:41] LABS: HEMATOCRIT 39.1 % (36.0-47.0); HEMOGLOBIN 13.4 g/dL (12.0-15.5); MEAN CORPUSCULAR HGB CONC 34.2 g/dL (32.0-36.0); MEAN CORPUSCULAR VOLUME 82 fl (80-97); PLATELET COUNT 431 10^3/uL (150-450); RED BLOOD COUNT 4.77 10^6/uL (3.72-5.28); RED CELL DISTRIBUTION WIDTH 15.8 % (11.5-14.0); WHITE BLOOD COUNT 8.6 10^3/uL (4.0-10.5)
[2020-05-17 12:05] LABS: BLOOD UREA NITROGEN 10 mg/dL (7-20); CALCIUM 8.6 mg/dL (8.4-10.2); GLUCOSE 114 mg/dL (75-110); POTASSIUM 3.4 mmol/L (3.6-5.0)
--- NOTE | 2020-05-17 12:09 | RADIOLOGY REPORT (SQ) ---
EXAM DESCRIPTION: CHEST SINGLE VIEW IMAGES COMPLETED DATE/TIME: 05/17/2020 12:01 pm REASON FOR STUDY: sob COMPARISON: 05/02/2020 EXAM PARAMETERS: NUMBER OF VIEWS: One view. TECHNIQUE: Single frontal radiographic view of the chest acquired. RADIATION DOSE: NA LIMITATIONS: None. FINDINGS: LUNGS AND PLEURA: No opacities, masses or pneumothorax. No pleural effusion. MEDIASTINUM AND HILAR STRUCTURES: No masses. Contour normal. HEART AND VASCULAR STRUCTURES: Heart normal in size. Normal vasculature. BONES: No acute findings. HARDWARE: None in the chest. OTHER: No other significant finding. IMPRESSION: NO ACUTE RADIOGRAPHIC FINDING IN THE CHEST. TECHNICAL DOCUMENTATION: JOB ID: [id number] 2010 [employer]- All Rights Reserved Reading location - IP/workstation name: [email or web address]
[2020-05-17 12:10] LABS: CARBON DIOXIDE 26 mmol/L (22-30); CHLORIDE 108 mmol/L (98-107)
[2020-05-17 12:12] LABS: ANION GAP 1 (5-19)
[2020-05-17] MEDS ORDERED: HYDROXYZINE HCL 10 MG TABLET PO ONE (12:17)
[2020-05-17] MEDS ORDERED: CETIRIZINE 10 MG TABLET PO ONE (15:15)
[2020-05-17] MEDS ORDERED: PREDNISONE 20 MG TABLET PO ONE (15:15)
[2020-05-17] MEDS ORDERED: HYDROCHLOROTHIAZIDE 12.5 MG TABLET PO ONE (15:17)
[2020-05-17] MEDS ORDERED: NIFEDIPINE 30 MG TAB.ER.24 PO ONE (15:17)
[2020-05-17] MEDS ORDERED: ACETAMINOPHEN 325 MG TABLET PO PRN (15:18)
[2020-05-17 17:03] VITALS: BP 153/114
--- NOTE | 2020-05-17 18:02 | EKG REPORT ---
SEVERITY:- ABNORMAL ECG - SINUS TACHYCARDIA NONSPECIFIC T ABNORMALITIES, LATERAL LEADS : Confirmed by: Stuart Mcclain MD 17-May-2020 18:01:26
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
== END 2020-05-17 18:45 | disposition home or self-care (01) ==
LOC: ER 10:56 → EH 13:28 → INTOOBSV 13:28 → 5TH 14:26
PROVIDERS: ADMIT Hospitalist; ATTEND Hospitalist
DX: T88.6XXA Anaphylactic reaction due to adverse effect of correct drug or medicament properly administered, initial encounter (principal); T78.3XXA Angioneurotic edema, initial encounter; T46.1X5A Adverse effect of calcium-channel blockers, initial encounter; I10 Essential (primary) hypertension; R06.1 Stridor; E66.9 Obesity, unspecified; Z82.49 Family history of ischemic heart disease and other diseases of the circulatory system; Z91.038 Other insect allergy status; Z91.010 Allergy to peanuts; Z88.8 Allergy status to other drugs, medicaments and biological substances; Z91.018 Allergy to other foods
CPT/HCPCS: 93005; 94640; 99285; 96374; 96375; 36415; 85027; 80048; 71045; 93010; G0378; J3490 ×5; J2930; J7512; J2405; S0028